=== PATIENT | male | born 1950 ===

== ENCOUNTER 2019-08-06 11:37 | Inpatient (IN) | payer OTHER ==
[2019-08-06] MEDS ORDERED: ASPIRIN 81 MG TAB CHEW PO ONE (12:13)
[2019-08-06] MEDS ORDERED: dilTIAZem 25 MG/5 ML INJ IV ONE (12:21)
--- NOTE | 2019-08-06 12:39 | XRay Report ---
CHEST 1 VIEW INDICATION: Chest Pain. COMPARISON: None. FINDINGS: Support devices: None. Heart: Normal. Lungs/Pleura: Blunting of the left costophrenic angle is suggestive of small left pleural effusion. P leural thickening could have this appearance. There are mild residual atelectatic changes in the base s. IMPRESSION: 1. Pleural thickening versus small left pleural effusion. Mild atelectatic changes in the bases. Signer Name: Hai Pool MD Signed: 08/06/2019 12:34 PM Workstation Name: [id number]
[2019-08-06] MEDS: dilTIAZem/D5W 100 MG/100 ML BAG IV SCH (12:40)
[2019-08-06 12:45] LABS: Basophils # (Auto) 0.2 K/mm3 (0.0-0.1); Basophils % (Auto) 2.4 % (0.0-1.8); Eosinophils % (Auto) 0.4 % (0.0-4.3); Hematocrit 39.6 % (35.5-45.6); Hemoglobin 13.5 gm/dl (11.8-15.2); Lymphocytes # (Auto) 0.7 K/mm3 (1.2-5.4); Lymphocytes % (Auto) 10.1 % (13.4-35.0); Mean Corpuscular HGB Conc 34 % (32-34); Mean Corpuscular Volume 92 fl (84-94); Monocytes # (Auto) 0.4 K/mm3 (0.0-0.8); Monocytes % (Auto) 6.5 % (0.0-7.3); Platelet Count 172 K/mm3 (140-440); Red Blood Count 4.32 M/mm3 (3.65-5.03); Red Cell Distribution Width 14.1 % (13.2-15.2)
[2019-08-06 12:57] LABS: INR 1.25 (0.87-1.13)
[2019-08-06 13:00] LABS: Alanine Aminotransferase 65 units/L (7-56); Albumin 3.8 g/dL (3.9-5); BUN/Creatinine Ratio 18; Bilirubin,Direct 0.4 mg/dL (0-0.2); Blood Urea Nitrogen 16 mg/dL (9-20); Calcium 9.1 mg/dL (8.4-10.2); Hemolysis Index 8
[2019-08-06 13:07] LABS: Free T4 (Free Thyroxine) 1.71 ng/dL (0.76-1.46)
--- NOTE | 2019-08-06 13:22 | Emergency Department Report ---
ED Chest Pain HPI - General Chief Complaint: Chest Pain Stated Complaint: CHEST PAIN Time Seen by Provider: 08/06/19 12:13 Source: patient Mode of arrival: Ambulatory Limitations: No Limitations - History of Present Illness Initial Comments: 69-year-old male Macedonian-speaking who tells me that he has had an irregular heart rhythm for about 10 days. He states that he has been short of breath both at night and on exertion. He has not been coughing much. He states he has had some discomfort in his anterior chest which is nonpleuritic and nonradiating intermittently over the last week. He is not complain of chest pain right now. He is not short of breath at rest now. He is not nauseated. He has not been sweating. He denies fever or chills. Patient states that he does not like to go to the doctor much and probably it is been 20 years since he seen a physician. MD Complaint: chest pain, other (Irregular heart rhythm) -: week(s) Onset: during rest Pain Location: substernal Pain Radiation: none Severity: mild Quality: dull Consistency: intermittent, now resolved Improves With: nothing Worsens With: nothing re: denies: nausea, vomting, diaphoresis Other Symptoms: denies: cough, fever, syncope Treatments Prior to Arrival: none Aspirin use within the Past 7 Days: (0) No - Related Data Allergies Allergy/AdvReac Type Severity Reaction Status Date / Time No Known Allergies Allergy Unverified 08/06/19 11:39 Heart Score - HEART Score History: Slightly suspicious EKG: Non-specific Age: > 65 Risk factors: > 3 risk factors or hx of atherosclerotic disease Troponin: < normal limit HEART Score: 5 - Critical Actions Critical Actions: 4-6 pts:12-16.6% risk of adverse cardiac event. Should be admitted ED Review of Systems ROS: Stated complaint: CHEST PAIN Other details as noted in HPI Constitutional: denies: chills, fever Eyes: denies: eye pain, eye discharge, vision change ENT: denies: ear pain, throat pain Respiratory: shortness of breath. denies: cough, wheezing Cardiovascular: chest pain. denies: palpitations Endocrine: no symptoms reported Gastrointestinal: denies: abdominal pain, nausea, diarrhea Genitourinary: denies: urgency, dysuria Musculoskeletal: denies: back pain, joint swelling, arthralgia Skin: denies: rash, lesions Neurological: denies: headache, weakness, paresthesias Psychiatric: denies: anxiety, depression Hematological/Lymphatic: denies: easy bleeding, easy bruising ED Past Medical Hx - Past Medical History Previous Medical History?: No - Surgical History Past Surgical History?: No - Social History Smoking Status: Current Every Day Smoker ED Physical Exam - General Limitations: No Limitations General appearance: alert, in no apparent distress - Head Head exam: Present: atraumatic, normocephalic - Eye Eye exam: Present: normal appearance. Absent: scleral icterus - ENT ENT exam: Present: mucous membranes moist - Neck Neck exam: Present: normal inspection - Respiratory Respiratory exam: Present: normal lung sounds bilaterally. Absent: respiratory distress - Cardiovascular Cardiovascular Exam: Present: normal rhythm, tachycardia. Absent: systolic murmur, diastolic murmur, rubs, gallop - GI/Abdominal GI/Abdominal exam: Present: soft, normal bowel sounds. Absent: distended, tenderness, guarding - Rectal Rectal exam: Present: deferred - Extremities Exam Extremities exam: Present: normal inspection, full ROM, normal capillary refill. Absent: tenderness, pedal edema, joint swelling, calf tenderness - Back Exam Back exam: Present: normal inspection - Neurological Exam Neurological exam: Present: alert, oriented X3, CN II-XII intact. Absent: motor sensory deficit - Psychiatric Psychiatric exam: Present: normal affect, normal mood - Skin Skin exam: Present: warm, dry, intact, normal color. Absent: rash ED Course Vital Signs 08/06/19 08/06/19 08/06/19 11:40 11:42 12:29 Temperature 97.6 F 97.6 F Pulse Rate 107 H 154 H 144 H Respiratory 18 18 18 Rate Blood Pressure 100/63 Blood Pressure 100/63 [Left] O2 Sat by Pulse 100 95 97 Oximetry 08/06/19 08/06/19 08/06/19 12:30 12:38 12:40 Temperature Pulse Rate 158 H 158 H 117 H Respiratory 25 H Rate Blood Pressure 134/80 138/80 134/80 Blood Pressure [Left] O2 Sat by Pulse 97 Oximetry 08/06/19 12:45 Temperature Pulse Rate 107 H Respiratory 24 Rate Blood Pressure 118/77 Blood Pressure [Left] O2 Sat by Pulse 96 Oximetry - Reevaluation(s) Reevaluation #1: Cardizem bolus and drip. Discussed with hospitalist. Chest x-ray showed no acute process. Patient will be hospitalized. 08/06/19 14:47 Reevaluation #2: Free T4 was slightly elevated. Further work-up per hospitalist. TSH is yet pending. 08/06/19 14:49 AIYANA score - Aiyana Score Age > 65: (0) No Aspirin use within the Past 7 Days: (0) No 3 or more CAD Risk Factors: (1) Yes 2 or more Angina events in past 24 hrs: (0) No Known CAD with more than 50% Stenosis: (0) No Elevated Cardiac Markers: (0) No ST Deviation Greater than 0.5mm: (0) No AIYANA Score: 1 ED Medical Decision Making - Lab Data Result diagrams: 08/06/19 12:33 08/06/19 12:33 Laboratory Results - last 24 hr 08/06/19 08/06/19 08/06/19 12:33 12:33 12:33 WBC 6.8 RBC 4.32 Hgb 13.5 Hct 39.6 MCV 92 MCH 31 MCHC 34 RDW 14.1 Plt Count 172 Lymph % (Auto) 10.1 L [place] % (Auto) 6.5 Eos % (Auto) 0.4 Baso % (Auto) 2.4 H Lymph # 0.7 L [place] # 0.4 Eos # 0.0 Baso # 0.2 H Seg Neutrophils % 80.6 H Seg Neutrophils # 5.5 PT 15.9 H INR 1.25 H APTT 32.0 Sodium Potassium Chloride Carbon Dioxide Anion Gap BUN Creatinine Estimated GFR BUN/Creatinine Ratio Glucose Calcium Magnesium Total Bilirubin Direct Bilirubin Indirect Bilirubin AST ALT Alkaline Phosphatase Troponin T < 0.010 NT-Pro-B Natriuret Pep Total Protein Albumin Albumin/Globulin Ratio TSH Free T4 08/06/19 08/06/19 12:33 12:33 WBC RBC Hgb Hct MCV MCH MCHC RDW Plt Count Lymph % (Auto) [place] % (Auto) Eos % (Auto) Baso % (Auto) Lymph # [place] # Eos # Baso # Seg Neutrophils % Seg Neutrophils # PT INR APTT Sodium 137 Potassium 4.1 Chloride 100.4 Carbon Dioxide 20 L Anion Gap 21 BUN 16 Creatinine 0.9 Estimated GFR > 60 BUN/Creatinine Ratio 18 Glucose 108 H Calcium 9.1 Magnesium 2.10 Total Bilirubin 1.00 Direct Bilirubin 0.4 H Indirect Bilirubin 0.6 AST 40 ALT 65 H Alkaline Phosphatase 56 Troponin T NT-Pro-B Natriuret Pep 3420 H Total Protein 6.9 Albumin 3.8 L Albumin/Globulin Ratio 1.2 TSH 2.980 Free T4 1.71 H - EKG Data -: EKG Interpreted by Me Rate: tachycardia - EKG Data Interpretation: other (Atrial fibrillation with rapid ventricular response. Nonspecific ST-T wave changes. No evidence of acute ischemia) - Radiology Data Radiology results: report reviewed (Chronic changes. Question left pleural fluid), image reviewed Critical care attestation.: If time is entered above; I have spent that time in minutes in the direct care of this critically ill patient, excluding procedure time. ED Disposition Clinical Impression: Atrial fibrillation with RVR Chest pain Qualifiers: Chest pain type: unspecified Qualified Code(s): R07.9 - Chest pain, unspecified Disposition: -09 OP ADMIT IP TO THIS HOSP Is pt being admited?: Yes Does the pt Need Aspirin: Yes Condition: Stable Instructions: Chest Pain (ED) Time of Disposition: 14:50
--- NOTE | 2019-08-06 14:26 | History and Physical Report ---
History of Present Illness Chief complaint: My heart is beating fast History of present illness: 69-year-old male with nicotine dependence presents to the ED for evaluation. Patient states that he has experienced "fast heartbeat" over the past 10 days with worsening symptoms over the past 2 days. Patient acknowledges decreased exercise tolerance, dyspnea with exertion, shortness of breath. Patient states that the symptoms were initially intermittent but have become increasingly frequent over the past 2 days. Patient also acknowledges discomfort in his chest which follows the episodes of fast heartbeat. Patient transported to [facility] via private vehicle. Patient seen and evaluated in the emergency department. Lab and imaging studies reviewed. Patient underwent EKG and was found to have atrial fibrillation with rapid ventricular response as well as symptoms and clinical findings consistent with CHF decompensation. Patient placed on Cardizem drip and admitted to [facility] for medical stabilization due to high risk for cardiac decompensation. Cardiology consult placed in ED. Patient denies fever, chills, chest pain, productive cough, skin rash, recent ill contacts, unilateral leg swelling, prolonged travel/immobility, individual/family history of DVT/PE/bleeding/blood clotting disorders, unintentional weight loss, night sweats. Advanced care planning conducted in ED. Patient counseled regarding n oncompliance with outpatient physician follow-up. Patient knowledges understanding risks of lack of medical follow-up. No prior admission for review. No medication listed at time of admission for reconciliation. Past History Past Medical History: No medical history, other (Reviewed) Past Surgical History: No surgical history, Other (Reviewed) Social history: single, smoking Family history: hypertension Medications and Allergies Allergies Allergy/AdvReac Type Severity Reaction Status Date / Time No Known Allergies Allergy Unverified 08/06/19 11:39 Active Meds: Active Medications Diltiazem HCl (Cardizem/D5w 100mg/100ml) 100 mg in 100 mls @ 5 mls/hr IV TITR RIMA; Protocol Last Titration: 08/06/19 12:57 Dose: 10 mg/hr, 10 mls/hr Documented by: Review of Systems Constitutional: no weight loss, no weight gain, no fever, no chills Ears, nose, mouth and throat: no ear pain, no ear discharge, no tinnitis, no decreased hearing, no nose pain Cardiovascular: palpitations, rapid/irregular heart beat, edema, shortness of breath, dyspnea on exertion, decreased exercise tolerance, no chest pain, no syncope Respiratory: no cough, no cough with sputum, no excessive sputum, no hemoptysis Gastrointestinal: no abdominal pain, no nausea, no vomiting, no diarrhea, no constipation Genitourinary Male: no hematuria, no flank pain, no discharge, no urinary frequency, no urinary hesitancy Rectal: no pain, no incontinence, no bleeding Musculoskeletal: no neck stiffness, no neck pain, no shooting arm pain, no arm numbness/tingling, no low back pain Integumentary: no rash, no pruritis, no redness, no sores, no wounds Neurological: no head injury, no transient paralysis, no paralysis, no weakness, no numbness, no tingling, no syncope, no tremors Psychiatric: no anxiety, no memory loss, no change in sleep habits, no insomnia, no hypersomnia, no change in appetite, no change in libido, no suicidal ideation Endocrine: no cold intolerance, no heat intolerance, no polyphagia, no polydi psia, no polyuria, no excessive sweating, no flushing, no weight change Hematologic/Lymphatic: no easy bruising, no easy bleeding, no lymphadenopathy, no lymphedema Allergic/Immunologic: no urticaria, no allergic rhinitis, no wheezing, no anaphylaxis, no angioedema Exam - Constitutional Vitals: Temp Pulse Resp BP Pulse Ox 97.6 F 107 H 24 118/77 96 08/06/19 11:42 08/06/19 12:45 08/06/19 12:45 08/06/19 12:45 08/06/19 12:45 General appearance: Present: mild distress - EENT Eyes: Present: PERRL ENT: hearing intact, clear oral mucosa - Neck Neck: Present: supple, normal ROM - Respiratory Respiratory effort: normal Respiratory: bilateral: CTA - Cardiovascular Rhythm: other (Tachycardia) Heart Sounds: Present: S1 & S2. Absent: rub, click - Extremities Extremities: pulses symmetrical Extremity abnormal: edema Peripheral Pulses: within normal limits - Abdominal General gastrointestinal: Present: soft, non-tender, non-distended, normal bowel sounds Male genitourinary: Present: normal - Integumentary Integumentary: Present: clear, warm, dry - Musculoskeletal Musculoskeletal: gait normal, strength equal bilaterally - Psychiatric Psychiatric: appropriate mood/affect, intact judgment & insight - Neurologic Neurologic: CNII-XII intact, moves all extremities Results - Labs CBC & Chem 7: 08/06/19 12:33 08/06/19 12:33 Labs: Abnormal lab results 08/06/19 08/06/19 08/06/19 Range/Units 12:33 12:33 12:33 Lymph % (Auto) 10.1 L (13.4-35.0) % Baso % (Auto) 2.4 H (0.0-1.8) % Lymph # 0.7 L (1.2-5.4) K/mm3 Baso # 0.2 H (0.0-0.1) K/mm3 Seg Neutrophils % 80.6 H (40.0-70.0) % PT 15.9 H (12.2-14.9) Sec. INR 1.25 H (0.87-1.13) Carbon Dioxide 20 L (22-30) mmol/L Glucose 108 H (75-100) mg/dL Direct Bilirubin 0.4 H (0-0.2) mg/dL ALT 65 H (7-56) units/L NT-Pro-B Natriuret Pep 3420 H (0-900) pg/mL Albumin 3.8 L (3.9-5) g/dL Free T4 (0.76-1.46) ng/dL 08/06/19 Range/Units 12:33 Lymph % (Auto) (13.4-35.0) % Baso % (Auto) (0.0-1.8) % Lymph # (1.2-5.4) K/mm3 Baso # (0.0-0.1) K/mm3 Seg Neutrophils % (40.0-70.0) % PT (12.2-14.9) Sec. INR (0.87-1.13) Carbon Dioxide (22-30) mmol/L Glucose (75-100) mg/dL Direct Bilirubin (0-0.2) mg/dL ALT (7-56) units/L NT-Pro-B Natriuret Pep (0-900) pg/mL Albumin (3.9-5) g/dL Free T4 1.71 H (0.76-1.46) ng/dL Assessment and Plan - Patient Problems (1) CHF (congestive heart failure) Current Visit: Yes Status: Acute Qualifiers: Heart failure type: systolic Heart failure chronicity: acute Qualified Code(s): I50.21 - Acute systolic (congestive) heart failure Plan to address problem: Strict I's/O, daily weight, afterload reduction, monitor urine output every shift, supplemental oxygen, echo, thyroid panel, magnesium level, blood pressure control, cardiology consult placed in ED. (2) Nicotine dependence Current Visit: Yes Status: Acute Qualifiers: Nicotine product type: cigarettes Substance use status: in withdrawal Qualified Code(s): F17.213 - Nicotine dependence, cigarettes, with withdrawal Plan to address problem: Smoking cessation counseling, supportive care, behavior change counseling +15 minutes. (3) Noncompliance Current Visit: Yes Status: Acute Plan to address problem: Patient counseled regarding noncompliance and lack of outpatient medical follow- up. Patient informed of increased risk of worsening symptoms and possible . Patient knowledges understanding instructions and will be compliant with outpatient follow-up. (4) Atrial fibrillation with RVR Current Visit: Yes Status: Acute Plan to address problem: Cardizem drip initiated in ED, patient admitted to IMCU, remote telemetry monitoring, transition to p.o. Cardizem as clinically indicated, titrate Cardizem drip drip to heart rate less than 100 bpm, echo, cardiology team consulted in ED. (5) DVT prophylaxis Current Visit: Yes Status: Acute Plan to address problem: SCD to bilateral lower extremities while in bed, patient is ambulatory.
[2019-08-06] MEDS ORDERED: ALBUTEROL 2.5 MG/3 ML NEBU IH PRN (14:37)
[2019-08-06] MEDS ORDERED: ONDANSETRON 4 MG/2 ML INJ IV PRN (14:37)
[2019-08-06] MEDS ORDERED: ACETAMINOPHEN 325 MG TAB PO PRN (14:37)
[2019-08-07] MEDS: dilTIAZem/D5W 100 MG/100 ML BAG IV SCH (10:10)
--- NOTE | 2019-08-07 13:07 | Progress Note ---
Assessment and Plan Assessment and plan: 69-year-old man who presents to the hospital with palpitations. A. fib with RVR and hypercoagulable states Rate control medications, stroke ppx per cardiology Tobacco abuse/dependence Smoking cessation counseling performed for 10 minutes, nicotine patches when necessary Nonadherence Preventative health counseling performed for 17 minutes DVt ppx- lovenox History Interval history: Review of systems Constitutional: No fevers, no malaise, no joint pains CVS: No chest pain, no orthopnea, no dyspnea on exertion, no pedal edema GI: No abdominal pain, no diarrhea, no vomiting, no constipation Respiratory: no wheezing, no coughing Hospitalist Physical - Physical exam Narrative exam: General.: Appears well, no distress, nontoxic HEENT: Moist mucous membranes, extraocular muscles intact, no lymphadenopathy Neck: supple Cardiac: S1-S2 heard Lungs: clear to auscultation bilaterally Abdomen: soft , nontender, nondistended, bowel sounds positive Extremities: no edema clubbing or cyanosis Skin: no rash or lesions Neurologic: no gross focal deficits Psych: calm, and cooperative - Constitutional Vitals: Temp Pulse Resp BP Pulse Ox 98.1 F 131 H 18 113/80 94 08/07/19 08:00 08/07/19 12:01 08/07/19 12:01 08/07/19 12:01 08/07/19 12:01 General appearance: Present: mild distress AIYANA score - Aiyana Score Age > 65: (0) No Aspirin use within the Past 7 Days: (0) No 3 or more CAD Risk Factors: (1) Yes 2 or more Angina events in past 24 hrs: (0) No Known CAD with more than 50% Stenosis: (0) No Elevated Cardiac Markers: (0) No ST Deviation Greater than 0.5mm: (0) No AIYANA Score: 1 Results - Labs CBC & Chem 7: 08/06/19 12:33 08/06/19 12:33 Labs: Laboratory Last Values WBC 6.8 K/mm3 (4.5-11.0) 08/06/19 12:33 RBC 4.32 M/mm3 (3.65-5.03) 08/06/19 12:33 Hgb 13.5 gm/dl (11.8-15.2) 08/06/19 12:33 Hct 39.6 % (35.5-45.6) 08/06/19 12:33 MCV 92 fl (84-94) 08/06/19 12:33 MCH 31 pg (28-32) 08/06/19 12:33 MCHC 34 % (32-34) 08/06/19 12:33 RDW 14.1 % (13.2-15.2) 08/06/19 12:33 Plt Count 172 K/mm3 (140-440) 08/06/19 12:33 Lymph % (Auto) 10.1 % (13.4-35.0) L 08/06/19 12:33 [place] % (Auto) 6.5 % (0.0-7.3) 08/06/19 12:33 Eos % (Auto) 0.4 % (0.0-4.3) 08/06/19 12:33 Baso % (Auto) 2.4 % (0.0-1.8) H 08/06/19 12:33 Lymph # 0.7 K/mm3 (1.2-5.4) L 08/06/19 12:33 [place] # 0.4 K/mm3 (0.0-0.8) 08/06/19 12:33 Eos # 0.0 K/mm3 (0.0-0.4) 08/06/19 12:33 Baso # 0.2 K/mm3 (0.0-0.1) H 08/06/19 12:33 Seg Neutrophils % 80.6 % (40.0-70.0) H 08/06/19 12:33 Seg Neutrophils # 5.5 K/mm3 (1.8-7.7) 08/06/19 12:33 PT 15.9 Sec. (12.2-14.9) H 08/06/19 12:33 INR 1.25 (0.87-1.13) H 08/06/19 12:33 APTT 32.0 Sec. (24.2-36.6) 08/06/19 12:33 Sodium 137 mmol/L (137-145) 08/06/19 12:33 Potassium 4.1 mmol/L (3.6-5.0) 08/06/19 12:33 Chloride 100.4 mmol/L (98-107) 08/06/19 12:33 Carbon Dioxide 20 mmol/L (22-30) L 08/06/19 12:33 Anion Gap 21 mmol/L 08/06/19 12:33 BUN 16 mg/dL (9-20) 08/06/19 12:33 Creatinine 0.9 mg/dL (0.8-1.5) 08/06/19 12:33 Estimated GFR > 60 ml/min 08/06/19 12:33 BUN/Creatinine Ratio 18 % 08/06/19 12:33 Glucose 108 mg/dL (75-100) H 08/06/19 12:33 Calcium 9.1 mg/dL (8.4-10.2) 08/06/19 12:33 Magnesium 2.10 mg/dL (1.7-2.3) 08/06/19 14:56 Total Bilirubin 1.00 mg/dL (0.1-1.2) 08/06/19 12:33 Direct Bilirubin 0.4 mg/dL (0-0.2) H 08/06/19 12:33 Indirect Bilirubin 0.6 mg/dL 08/06/19 12:33 AST 40 units/L (5-40) 08/06/19 12:33 ALT 65 units/L (7-56) H 08/06/19 12:33 Alkaline Phosphatase 56 units/L (35-129) 08/06/19 12:33 Troponin T < 0.010 ng/mL (0.00-0.029) 08/06/19 12:52 NT-Pro-B Natriuret Pep 3420 pg/mL (0-900) H 08/06/19 12:33 Total Protein 6.9 g/dL (6.3-8.2) 08/06/19 12:33 Albumin 3.8 g/dL (3.9-5) L 08/06/19 12:33 Albumin/Globulin Ratio 1.2 % 08/06/19 12:33 TSH 2.980 mlU/mL (0.270-4.200) 08/06/19 12:33 Free T4 1.71 ng/dL (0.76-1.46) H 08/06/19 12:33 Active Medications - Current Medications Current Medications: Generic Name Dose Route Start Last Admin Trade Name Freq PRN Reason Stop Dose Admin Acetaminophen 650 mg 08/06/19 14:37 Tylenol PO Q4H PRN Pain MILD(1-3)/Fever >100.5/SALGADO Albuterol 2.5 mg 08/06/19 14:37 Proventil IH Q4HRT PRN Shortness Of Breath Enoxaparin Sodium 40 mg 08/07/19 22:00 Enoxaparin SUB-Q QDAY@2200 RIMA Diltiazem HCl 100 mg in 100 mls @ 5 mls/hr 08/06/19 13:00 08/07/19 10:10 Cardizem/D5w 100mg/100ml IV 5 mg/hr TITR RIMA 5 mls/hr Administration Protocol 5 MG/HR Metoprolol Tartrate 50 mg 08/07/19 14:00 Metoprolol PO BID [facility] Ondansetron HCl 4 mg 08/06/19 14:37 Zofran IV Q8H PRN Nausea And Vomiting Sodium Chloride 10 ml 08/06/19 22:00 08/07/19 00:00 Sodium Chloride Flush Syringe 10 Ml IV 10 ml BID RIMA Administration Sodium Chloride 10 ml 08/06/19 14:37 Sodium Chloride Flush Syringe 10 Ml IV PRN PRN LINE FLUSH
[2019-08-07] MEDS: METOPROLOL TARTRATE 50 MG TAB PO SCH ×2 (13:53→21:47)
--- NOTE | 2019-08-07 17:00 | Consultation ---
History of Present Illness Consult date: 08/07/19 Consult reason: atrial fibrillation, chest pain History of present illness: Consulted because of atrial fibrillation with rapid VR. Patient from [facility],can't speak [place]raini.Hx. obtained from chart. Past History Past Medical History: No medical history, other (Reviewed) Past Surgical History: No surgical history, Other (Reviewed) Social history: single, smoking, other (Patient from [facility], in [facility].) Family history: hypertension Medications and Allergies Allergies Allergy/AdvReac Type Severity Reaction Status Date / Time No Known Allergies Allergy Unverified 08/06/19 11:39 Home Medications Medication Instructions Recorded Confirmed Last Taken Type No Known Home Medications [No 08/07/19 08/07/19 Unknown History Reported Home Medications] Active Meds: Active Medications Acetaminophen (Tylenol) 650 mg PO Q4H PRN PRN Reason: Pain MILD(1-3)/Fever >100.5/[place] Albuterol (Proventil) 2.5 mg IH Q4HRT PRN PRN Reason: Shortness Of Breath Enoxaparin Sodium (Enoxaparin) 40 mg SUB-Q QDAY@2200 [facility] Diltiazem HCl (Cardizem/D5w 100mg/100ml) 100 mg in 100 mls @ 5 mls/hr IV TITR [facility]; Protocol Last Admin: 08/07/19 10:10 Dose: 5 mg/hr, 5 mls/hr Documented by: Metoprolol Tartrate (Metoprolol) 50 mg PO BID [facility] Last Admin: 08/07/19 13:53 Dose: 50 mg Documented by: Ondansetron HCl (Zofran) 4 mg IV Q8H PRN PRN Reason: Nausea And Vomiting Sodium Chloride (Sodium Chloride Flush Syringe 10 Ml) 10 ml IV BID [facility] Last Admin: 08/07/19 15:53 Dose: Not Given Documented by: Sodium Chloride (Sodium Chloride Flush Syringe 10 Ml) 10 ml IV PRN PRN PRN Reason: LINE FLUSH Review of Systems Constitutional: no weight loss Ears, nose, mouth and throat: no ear discharge Cardiovascular: chest pain, palpitations, shortness of breath, dyspnea on exertion Respiratory: no cough Gastrointestinal: no vomiting Genitourinary Male: no hematuria Musculoskeletal: no neck stiffness Integumentary: no rash Psychiatric: no anxiety Hematologic/Lymphatic: no easy bruising Allergic/Immunologic: no wheezing Physical Examination Vital Signs Temp Pulse Resp BP Pulse Ox 97.6 F 107 H 18 100/63 100 08/06/19 11:40 08/06/19 11:40 08/06/19 11:40 08/06/19 11:40 08/06/19 11:40 General appearance: no acute distress HEENT: Positive: PERRL Neck: Positive: trachea midline Cardiac: Positive: irregularly irregular. Negative: Audible Murmur Lungs: Positive: clear to auscultation Neuro: Positive: Grossly Intact Abdomen: Positive: Unremarkable, Soft Male genitourinary: Positive: deferred Skin: Negative: Rash Extremities: Absent: edema Results 08/06/19 12:33 08/06/19 12:33 EKG interpretations - Telemetry EKG Rhythm: Atrial Fibrillation AV and intraventricular conduction: left anterior fascicular (122/mt.(EKG done at 08/07/2019 09:10)) Assessment and Plan New onset atrial fibrillation with rapid VR and exertional SOB of few weeks,"little" chest pain.Was in ICU,transferred to telemetry,patient's VR undere cotrol on 10 mf Diltiazem,started on Metoprolol 50 mg .BID,considering his age and atrial fibrillation,will start anticoagulation with Warfarin,will check echo.will get more hx.(patient can't speak Bahraini). Continue to monitor in telemetry. - Patient Problems (1) Atrial fibrillation with RVR Current Visit: Yes Status: Acute (2) Chest pain Current Visit: Yes Status: Acute Qualifiers: Chest pain type: unspecified Qualified Code(s): R07.9 - Chest pain, unspecified
[2019-08-07] MEDS ORDERED: WARFARIN NO DOSE TODAY PO ONE (17:08)
[2019-08-07] MEDS: WARFARIN 5 MG TAB PO SCH (17:34)
[2019-08-07] MEDS: ENOXAPARIN 40 MG/0.4 ML INJ SUB-Q SCH (21:47)
[2019-08-08] MEDS: dilTIAZem/D5W 100 MG/100 ML BAG IV SCH (01:32)
[2019-08-08 07:21] LABS: INR 1.24 (0.87-1.13)
[2019-08-08] MEDS: METOPROLOL TARTRATE 50 MG TAB PO SCH ×2 (10:11→21:42)
--- NOTE | 2019-08-08 13:22 | Progress Note ---
Assessment and Plan New onset atrial fibrillation with rapid VR and exertional SOB of few weeks,"little" chest pain.Was in ICU,transferred to telemetry,patient's VR undere cotrol on 10 mf Diltiazem,started on Metoprolol 50 mg .BID,considering his age and atrial fibrillation,will start anticoagulation with Warfarin,will check echo.will get more hx.(patient can't speak Serbian). 08/08/2019>Patient vr is better controlled ,denies any chest pain and minimal SOB,considering underlying cardiomyopathy will get pharmacologic MPI.Difficult to comminicate with patient. - Patient Problems (1) Atrial fibrillation with RVR Current Visit: Yes Status: Acute (2) Chest pain Current Visit: Yes Status: Acute Qualifiers: Chest pain type: unspecified Qualified Code(s): R07.9 - Chest pain, unspecified (3) Cardiomyopathy Current Visit: Yes Status: Acute Subjective Date of service: 08/08/19 Interval history: Patient is ambulating,telemetry showing atrial fibrillation with controlled VR,echo showed LV systolic dysfunction.Denies any chest pain,has minimal shortness of breath. Objective Vital Signs Temp Pulse Pulse Resp BP BP Pulse Ox 08/08/19 12:33 98.2 F 89 18 110/75 96 08/08/19 11:46 18 08/08/19 10:11 94 H 112/81 08/08/19 08:27 100 08/08/19 07:38 98.3 F 94 H 16 112/81 97 08/08/19 04:23 98.6 F 68 18 105/68 95 08/07/19 23:56 97.6 F 51 L 18 73/51 95 08/07/19 22:00 123 H 18 08/07/19 21:47 71 97/62 08/07/19 21:21 98 08/07/19 20:08 98.1 F 71 20 97/62 97 08/07/19 20:00 97.6 F 50 L 18 84/55 95 08/07/19 17:21 94 H 08/07/19 16:36 97.6 F 69 18 93/67 96 08/07/19 15:11 83 20 99/62 96 08/07/19 15:01 98 H 15 99/62 99 08/07/19 14:45 113 H 22 109/77 94 08/07/19 14:30 125 H 16 114/84 93 08/07/19 14:15 127 H 29 H 114/70 94 08/07/19 14:00 122 H 123 H 14 114/70 93 08/07/19 13:53 104 H 123/87 08/07/19 13:45 154 H 15 102/78 92 08/07/19 13:30 160 H 21 102/78 96 - Physical Examination HEENT: Positive: PERRL Neck: Positive: trachea midline Cardiac: Positive: irregularly irregular. Negative: Audible Murmur Lungs: Positive: Normal Breath Sounds Neuro: Positive: Grossly Intact Abdomen: Positive: Unremarkable, Soft Skin: Negative: Rash Extremities: Absent: edema - Labs and Meds Coagulation 08/08/19 Range/Units 06:29 PT 15.8 H (12.2-14.9) Sec. INR 1.24 H (0.87-1.13) - EKG Supraventricular dysrhythmia: atrial fibrillation (with controlled VR.) AV and intraventricular conduction: left anterior fascicular (122/mt.(EKG done at 08/07/2019 09:10))
--- NOTE | 2019-08-08 14:54 | Event Note ---
Date: 08/08/19 Asked to see initially for A-frib [facility] RVR but rate controlled and transferred to medical floor. Will see prn
--- NOTE | 2019-08-08 14:56 | Progress Note ---
Assessment and Plan Assessment and plan: 69-year-old man who presents to the hospital with palpitations. A. fib with RVR and hypercoagulable states Rate control medications, stroke ppx per cardiology Tobacco abuse/dependence Smoking cessation counseling performed for 10 minutes, nicotine patches when necessary Nonadherence Preventative health counseling performed for 17 minutes DVt ppx- lovenox History Interval history: Review of systems Constitutional: No fevers, no malaise, no joint pains CVS: No chest pain, no orthopnea, no dyspnea on exertion, no pedal edema GI: No abdominal pain, no diarrhea, no vomiting, no constipation Respiratory: no wheezing, no coughing Hospitalist Physical - Physical exam Narrative exam: General.: Appears well, no distress, nontoxic HEENT: Moist mucous membranes, extraocular muscles intact, no lymphadenopathy Neck: supple Cardiac: S1-S2 heard Lungs: clear to auscultation bilaterally Abdomen: soft , nontender, nondistended, bowel sounds positive Extremities: no edema clubbing or cyanosis Skin: no rash or lesions Neurologic: no gross focal deficits Psych: calm, and cooperative - Constitutional Vitals: Temp Pulse Resp BP Pulse Ox 98.2 F 89 18 110/75 96 08/08/19 12:33 08/08/19 12:33 08/08/19 12:33 08/08/19 12:33 08/08/19 12:33 General appearance: Present: no acute distress AIYANA score - Aiyana Score Age > 65: (0) No Aspirin use within the Past 7 Days: (0) No 3 or more CAD Risk Factors: (1) Yes 2 or more Angina events in past 24 hrs: (0) No Known CAD with more than 50% Stenosis: (0) No Elevated Cardiac Markers: (0) No ST Deviation Greater than 0.5mm: (0) No AIYANA Score: 1 Results - Labs CBC & Chem 7: 08/06/19 12:33 08/06/19 12:33 Labs: Laboratory Last Values WBC 6.8 K/mm3 (4.5-11.0) 08/06/19 12:33 RBC 4.32 M/mm3 (3.65-5.03) 08/06/19 12:33 Hgb 13.5 gm/dl (11.8-15.2) 08/06/19 12:33 Hct 39.6 % (35.5-45.6) 08/06/19 12:33 MCV 92 fl (84-94) 08/06/19 12:33 MCH 31 pg (28-32) 08/06/19 12:33 MCHC 34 % (32-34) 08/06/19 12:33 RDW 14.1 % (13.2-15.2) 08/06/19 12:33 Plt Count 172 K/mm3 (140-440) 08/06/19 12:33 Lymph % (Auto) 10.1 % (13.4-35.0) L 08/06/19 12:33 Pacific % (Auto) 6.5 % (0.0-7.3) 08/06/19 12:33 Eos % (Auto) 0.4 % (0.0-4.3) 08/06/19 12:33 Baso % (Auto) 2.4 % (0.0-1.8) H 08/06/19 12:33 Lymph # 0.7 K/mm3 (1.2-5.4) L 08/06/19 12:33 Pacific # 0.4 K/mm3 (0.0-0.8) 08/06/19 12:33 Eos # 0.0 K/mm3 (0.0-0.4) 08/06/19 12:33 Baso # 0.2 K/mm3 (0.0-0.1) H 08/06/19 12:33 Seg Neutrophils % 80.6 % (40.0-70.0) H 08/06/19 12:33 Seg Neutrophils # 5.5 K/mm3 (1.8-7.7) 08/06/19 12:33 PT 15.8 Sec. (12.2-14.9) H 08/08/19 06:29 INR 1.24 (0.87-1.13) H 08/08/19 06:29 APTT 32.0 Sec. (24.2-36.6) 08/06/19 12:33 Sodium 137 mmol/L (137-145) 08/06/19 12:33 Potassium 4.1 mmol/L (3.6-5.0) 08/06/19 12:33 Chloride 100.4 mmol/L (98-107) 08/06/19 12:33 Carbon Dioxide 20 mmol/L (22-30) L 08/06/19 12:33 Anion Gap 21 mmol/L 08/06/19 12:33 BUN 16 mg/dL (9-20) 08/06/19 12:33 Creatinine 0.9 mg/dL (0.8-1.5) 08/06/19 12:33 Estimated GFR > 60 ml/min 08/06/19 12:33 BUN/Creatinine Ratio 18 % 08/06/19 12:33 Glucose 108 mg/dL (75-100) H 08/06/19 12:33 Calcium 9.1 mg/dL (8.4-10.2) 08/06/19 12:33 Magnesium 2.10 mg/dL (1.7-2.3) 08/06/19 14:56 Total Bilirubin 1.00 mg/dL (0.1-1.2) 08/06/19 12:33 Direct Bilirubin 0.4 mg/dL (0-0.2) H 08/06/19 12:33 Indirect Bilirubin 0.6 mg/dL 08/06/19 12:33 AST 40 units/L (5-40) 08/06/19 12:33 ALT 65 units/L (7-56) H 08/06/19 12:33 Alkaline Phosphatase 56 units/L (35-129) 08/06/19 12:33 Troponin T < 0.010 ng/mL (0.00-0.029) 08/06/19 12:52 NT-Pro-B Natriuret Pep 3420 pg/mL (0-900) H 08/06/19 12:33 Total Protein 6.9 g/dL (6.3-8.2) 08/06/19 12:33 Albumin 3.8 g/dL (3.9-5) L 08/06/19 12:33 Albumin/Globulin Ratio 1.2 % 08/06/19 12:33 TSH 2.980 mlU/mL (0.270-4.200) 08/06/19 12:33 Free T4 1.71 ng/dL (0.76-1.46) H 08/06/19 12:33 Active Medications - Current Medications Current Medications: Generic Name Dose Route Start Last Admin Trade Name Freq PRN Reason Stop Dose Admin Acetaminophen 650 mg 08/06/19 14:37 Tylenol PO Q4H PRN Pain MILD(1-3)/Fever >100.5/SALGADO Albuterol 2.5 mg 08/06/19 14:37 Proventil IH Q4HRT PRN Shortness Of Breath Enoxaparin Sodium 40 mg 08/07/19 22:00 08/07/19 21:47 Enoxaparin SUB-Q 40 mg QDAY@2200 RIMA Administration Diltiazem HCl 100 mg in 100 mls @ 5 mls/hr 08/06/19 13:00 08/08/19 01:32 Cardizem/D5w 100mg/100ml IV 5 mg/hr TITR RIMA 5 mls/hr Administration Protocol 5 MG/HR Metoprolol Tartrate 50 mg 08/07/19 14:00 08/08/19 10:11 Metoprolol PO 50 mg BID RIMA Administration Ondansetron HCl 4 mg 08/06/19 14:37 08/08/19 01:34 Zofran IV 4 mg Q8H PRN Administration Nausea And Vomiting Sodium Chloride 10 ml 08/06/19 22:00 08/08/19 10:11 Sodium Chloride Flush Syringe 10 Ml IV 10 ml BID RIMA Administration Sodium Chloride 10 ml 08/06/19 14:37 Sodium Chloride Flush Syringe 10 Ml IV PRN PRN LINE FLUSH Warfarin Sodium 5 mg 08/07/19 18:00 08/07/19 17:34 Coumadin PO 5 mg DAILY@1700 [facility] Administration Protocol
[2019-08-08] MEDS: WARFARIN 5 MG TAB PO SCH (17:18)
[2019-08-08] MEDS: ENOXAPARIN 40 MG/0.4 ML INJ SUB-Q SCH (21:43)
[2019-08-09] MEDS ORDERED: REGADENOSON 0.4 MG/5 ML INJ IV ONE ×2 (06:52→06:57)
[2019-08-09] MEDS: METOPROLOL TARTRATE 50 MG TAB PO SCH ×2 (08:33→11:06)
[2019-08-09 08:43] LABS: INR 1.91 (0.87-1.13)
--- NOTE | 2019-08-09 13:19 | Progress Note ---
Assessment and Plan tte reviewed - EF 20-25%, LA mildly dilated, RV mod dilated, RV systolic function mod reduced, mild to mod AR, mod MR, mod TR, mild pulm HTN RVSP 42mmHg. S/p lexiscan MPI stress test this AM which was negative for ischemia, ungated d/t AFib. Tele reviewed - in AFib with HR currently 100s. Currently stable cardiac status. Cont present cardiac management, including lopressor, low dose lisinopril and coumadin with tx INR 2-3. Pt may discharge from cardiology standpoint. Recommend follow up in our office with Dr. Mcbride within 1-2 weeks ([phone]). The patient has been seen in conjunction with Dr. Kelton Fields who agrees with the assessment and plan of care. - Patient Problems (1) Atrial fibrillation with RVR Current Visit: Yes Status: Acute (2) Heart failure with reduced ejection fraction Current Visit: Yes Status: Acute (3) Nonischemic cardiomyopathy Current Visit: Yes Status: Chronic (4) Tobacco use Current Visit: Yes Status: Chronic Subjective Date of service: 08/09/19 Principal diagnosis: AFib RVR; CMP; HF Interval history: pt for stress test, no current complaints. in AFib with HR currently 100s. Objective Last Vital Signs Temp 98.0 F 08/09/19 08:29 Pulse 101 H 08/09/19 12:31 Resp 18 08/09/19 08:29 BP 112/91 08/09/19 12:31 Pulse Ox 92 08/09/19 12:31 - Physical Examination General: No Apparent Distress HEENT: Positive: PERRL Neck: Positive: trachea midline Cardiac: Positive: irregularly irregular, S1/S2 Lungs: Positive: Decreased Breath Sounds Neuro: Positive: Grossly Intact Abdomen: Positive: Unremarkable, Soft Skin: Negative: Rash Extremities: Absent: edema - Labs and Meds Coagulation 08/09/19 Range/Units 07:58 PT 22.2 H (12.2-14.9) Sec. INR 1.91 H (0.87-1.13) - Imaging and Cardiology EKG: report reviewed, image reviewed Echo: report reviewed - Telemetry EKG Rhythm: Atrial Fibrillation AV and intraventricular conduction: left anterior fascicular (122/mt.(EKG done at 08/07/2019 09:10))
--- NOTE | 2019-08-09 13:24 | Discharge Summary ---
Providers - Providers Date of Admission: 08/06/19 14:37 Attending physician: CANDE DEL VALLE MD 08/07/19 13:05 Consult to Physician [CONS] Routine Comment: Consulting Provider: CHASITY BUSTILLO Physician Instructions: Reason For Exam: afib 08/07/19 15:38 Consult to Physician [CONS] Routine Comment: Consulting Provider: CALLY WADE Physician Instructions: Reason For Exam: afib w rvr Primary care physician: [employer] Hospitalization Condition: Stable Hospital course: 69-year-old man who presents to the hospital with palpitations. A. fib with RVR and hypercoagulable states Patient was treated with diltiazem drip and then transitioned to oral medications. He was started on warfarin for stroke prophylaxis, he is to have repeat INR check within 3 days of discharge. Acute systolic CHF with EF of 25% Patient went on to have a stress test that was negative, most likely tachycardia induced CHF, meds optimized Tobacco abuse/dependence Smoking cessation counseling performed for 10 minutes, nicotine patches when necessary Nonadherence Preventative health counseling performed for 17 minutes DVt ppx- lovenox Disposition: - TO HOME OR SELFCARE Time spent for discharge: 33 mins Core Measure Documentation - Palliative Care Palliative Care/ Comfort Measures: Not Applicable - Core Measures Any of the following diagnoses?: heart failure - Heart Failure Discharge Requirements LAURA/ARB for LVSD if EF <40%: Yes Beta john paul at discharge: Yes Exam - Constitutional Vitals: Temp Pulse Resp BP Pulse Ox 98.0 F 101 H 18 112/91 92 08/09/19 08:29 08/09/19 12:31 08/09/19 08:29 08/09/19 12:31 08/09/19 12:31 General appearance: Present: no acute distress, well-nourished - EENT Eyes: Present: PERRL ENT: hearing intact, clear oral mucosa - Neck Neck: Present: supple, normal ROM - Respiratory Respiratory effort: normal Respiratory: bilateral: CTA - Cardiovascular Heart Sounds: Present: S1 & S2. Absent: rub, click - Extremities Extremities: pulses symmetrical, No edema Peripheral Pulses: within normal limits - Abdominal General gastrointestinal: Present: soft, non-tender, non-distended, normal bowel sounds Male genitourinary: Present: normal - Integumentary Integumentary: Present: clear, warm, dry - Musculoskeletal Musculoskeletal: gait normal, strength equal bilaterally - Psychiatric Psychiatric: appropriate mood/affect, intact judgment & insight - Neurologic Neurologic: CNII-XII intact, moves all extremities Plan Follow up with: ROCAEL BARROSO MD [Staff Physician] - 7 Days PRIMARY CARE, [Primary Care Provider] - 7 Days Forms: Warfarin Discharge Instruction Prescriptions: Warfarin [Coumadin] 2.5 mg PO DAILY@1700 #30 tablet Metoprolol [Lopressor TAB] 50 mg PO TID #90 tablet polyethylene glycoL 3350 [Miralax 3350] 17 gm PO QDAY PRN #30 packet PRN Reason: Constipation Sennosides/Docusate Sodium [Senna Plus 8.6-50 mg Tablet] 1 each PO HS PRN #30 tablet PRN Reason: Constipation Lisinopril [Zestril] 5 mg PO DAILY #90 tablet
[2019-08-09] MEDS ORDERED: METOPROLOL TARTRATE 50 MG TAB PO SCH (14:00)
--- NOTE | 2019-08-09 14:30 | Treadmill Report ---
NUCLEAR STRESS TEST REFERRING PHYSICIAN: Dr. Collins. PROTOCOL: The patient was assessed in a postabsorptive state, given 10 mCi of technetium 99m at rest. The patient underwent rest imaging via Lexiscan per standard protocol. At peak stress, the patient was given 26 mCi of technetium 99m. Shortly thereafter, the patient underwent stress imaging. Raw imaging reveals mild GI artifact, no significant motion artifact. SPECT images examined carefully in horizontal long axis, vertical long axis, short axis views, although inferior wall is partially obscured by GI artifact. It does not appear to be any convincing evidence of significant degree of ischemia or prior infarction. No significant reversible or fixed defect identified. No gating performed due to presence of atrial fibrillation. CONCLUSIONS: 1. No convincing evidence of significant degree of ischemia or prior infarction. 2. No gating due to atrial fibrillation. 3. Lexiscan reported separately. JOB# [id number] SBM/NTS
--- NOTE | 2019-08-09 15:05 | Consultation ---
History of Present Illness Consult date: 08/09/19 Reason for consult: dyspnea, other (Palpatations.) History of present illness: Pulmonary and Critical Care Consult Note Thank you Dr. Blake for asking us to participate in the care of this patient. 69-year-old male with nicotine dependence presents to the ED for evaluation. Patient states that he has experienced "fast heartbeat" over the past 10 days with worsening symptoms over the past 2 days. Patient acknowledges decreased exercise tolerance, dyspnea with exertion, shortness of breath. Patient states that the symptoms were initially intermittent but have become increasingly frequent over the past 2 days. Patient also acknowledges discomfort in his chest which follows the episodes of fast heartbeat. Patient underwent EKG and was found to have atrial fibrillation with rapid ventricular response as well as symptoms and clinical findings consistent with CHF decompensation. Patient placed on Cardizem drip and admitted to IM for medical stabilization due to high risk for cardiac decompensation. Patient denies fever, chills, chest pain, productive cough, skin rash, recent ill contacts, unilateral leg swelling, prol onged travel/immobility, individual/family history of DVT/PE/bleeding/blood clotting disorders, unintentional weight loss, night sweats. Patient counseled regarding noncompliance with outpatient physician follow-up. Pt is originally from [facility]. He denies any smoking history, alcohol, or drug use. 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 Currently, pt is alert and awake. No acute respiratory distress. He reports slight shortness of breath. He denies any chest pain or cough. He is resting on room air with an O2 saturation of 94%. Pt is not using his supplemental O2 via nasal cannula as recommended. He is afebrile and has no leukocytosis. CXR from 08/06/19 reported Pleural thickening versus small left pleural effusion. Mild atelectatic changes in the bases. Past History Past Medical History: No medical history, other (Reviewed) Past Surgical History: No surgical history, Other (Reviewed) Social history: single, other (Patient from [facility], in [facility] denies: smoking, alcohol abuse, prescription drug abuse, IV drug use Family history: hypertension Medications and Allergies Allergies Allergy/AdvReac Type Severity Reaction Status Date / Time No Known Allergies Allergy Unverified 08/06/19 11:39 Home Medications Medication Instructions Recorded Confirmed Last Taken Type Lisinopril [Zestril] 5 mg PO DAILY #90 tablet 08/09/19 Unknown Rx Metoprolol [Lopressor TAB] 50 mg PO TID #90 tablet 08/09/19 Unknown Rx Sennosides/Docusate Sodium [Senna 1 each PO HS PRN #30 tablet 08/09/19 Unknown Rx Plus 8.6-50 mg Tablet] Warfarin [Coumadin] 2.5 mg PO DAILY@1700 #30 tablet 08/09/19 Unknown Rx polyethylene glycoL 3350 [Miralax 17 gm PO QDAY PRN #30 packet 08/09/19 Unknown Rx 3350] Active Meds: Active Medications Acetaminophen (Tylenol) 650 mg PO Q4H PRN PRN Reason: Pain MILD(1-3)/Fever >100.5/SALGADO Albuterol (Proventil) 2.5 mg IH Q4HRT PRN PRN Reason: Shortness Of Breath Enoxaparin Sodium (Enoxaparin) 40 mg SUB-Q QDAY@2200 [facility] Last Admin: 08/08/19 21:43 Dose: 40 mg Documented by: Diltiazem HCl (Cardizem/D5w 100mg/100ml) 100 mg in 100 mls @ 5 mls/hr IV TITR [facility]; Protocol Last Admin: 08/08/19 01:32 Dose: 5 mg/hr, 5 mls/hr Documented by: Lisinopril (Zestril) 5 mg PO QDAY [facility] Metoprolol Tartrate (Metoprolol) 50 mg PO TID [facility] Last Admin: 08/09/19 13:54 Dose: 50 mg Documented by: Ondansetron HCl (Zofran) 4 mg IV Q8H PRN PRN Reason: Nausea And Vomiting Last Admin: 08/08/19 01:34 Dose: 4 mg Documented by: Sodium Chloride (Sodium Chloride Flush Syringe 10 Ml) 10 ml IV BID [facility] Last Admin: 08/09/19 11:23 Dose: 10 ml Documented by: Sodium Chloride (Sodium Chloride Flush Syringe 10 Ml) 10 ml IV PRN PRN PRN Reason: LINE FLUSH Warfarin Sodium (Coumadin) 2.5 mg PO DAILY@1700 [facility]; Protocol Review of Systems All systems: negative Physical Examination Vital signs: Vital Signs Temp Pulse Resp BP Pulse Ox 97.6 F 107 H 18 100/63 100 08/06/19 11:40 08/06/19 11:40 08/06/19 11:40 08/06/19 11:40 08/06/19 11:40 General appearance: no acute distress, alert Eyes: non-icteric ENT: oropharynx moist Neck: supple, no lymphadenopathy, no JVD Effort: normal Ascultation: Bilateral: rhonchi (Occasional rhonchi) Cardiovascular: regular rate and rhythm Gastrointestinal: normoactive bowel sounds, soft, non-distended Integumentary: normal Extremities: no cyanosis, no edema Musculoskeletal: no deformities Gait: normal gait, normal posture normal mental status, non-focal exam mood appropriate, affect normal Results - Laboratory Findings CBC and BMP: 08/06/19 12:33 08/06/19 12:33 PT/INR, D-dimer PT 22.2 Sec. (12.2-14.9) H 08/09/19 07:58 INR 1.91 (0.87-1.13) H 08/09/19 07:58 Abnormal lab findings: Abnormal Labs 08/06/19 08/06/19 08/06/19 12:33 12:33 12:33 Lymph % (Auto) 10.1 L Baso % (Auto) 2.4 H Lymph # 0.7 L Baso # 0.2 H Seg Neutrophils % 80.6 H PT 15.9 H INR 1.25 H Carbon Dioxide 20 L Glucose 108 H Direct Bilirubin 0.4 H ALT 65 H NT-Pro-B Natriuret Pep 3420 H Albumin 3.8 L Free T4 08/06/19 08/08/19 08/09/19 12:33 06:29 07:58 Lymph % (Auto) Baso % (Auto) Lymph # Baso # Seg Neutrophils % PT 15.8 H 22.2 H INR 1.24 H 1.91 H Carbon Dioxide Glucose Direct Bilirubin ALT NT-Pro-B Natriuret Pep Albumin Free T4 1.71 H - Diagnostic Findings Chest x-ray: report reviewed (Pleural thickening versus small left pleural e ffusion. Mild atelectatic changes in the bases. ), image reviewed Assessment and Plan 69-year-old male with nicotine dependence presents to the ED for evaluation. Patient states that he has experienced "fast heartbeat" over the past 10 days with worsening symptoms over the past 2 days. Patient acknowledges decreased exercise tolerance, dyspnea with exertion, shortness of breath. Patient states that the symptoms were initially intermittent but have become increasingly frequent over the past 2 days. Patient also acknowledges discomfort in his chest which follows the episodes of fast heartbeat. Patient underwent EKG and was found to have atrial fibrillation with rapid ventricular response as well as symptoms and clinical findings consistent with CHF decompensation. Patient placed on Cardizem drip and admitted to [facility] for medical stabilization due to high risk for cardiac decompensation. Patient denies fever, chills, chest pain, productive cough, skin rash, recent ill contacts, unilateral leg swelling, prolonged travel/immobility, individual/family history of DVT/PE/bleeding/blood clotting disorders, unintentional weight loss, night sweats. Patient counseled regarding noncompliance with outpatient physician follow-up. Pt is originally from [facility]. He denies any smoking history, alcohol, or drug use. 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 Currently, pt is alert and awake. No acute respiratory distress. He reports slight shortness of breath. He denies any chest pain or cough. He is resting on room air with an O2 saturation of 94%. Pt is not using his supplemental O2 via nasal cannula as recommended. He is afebrile and has no leukocytosis. CXR from 08/06/19 reported Pleural thickening versus small left pleural effusion. Mild atelectatic changes in the bases. - Patient Problems (1) Atrial fibrillation with RVR Status: Acute Plan to address problem: Pt is on warfarin Management as per cardiology (2) CHF (congestive heart failure) Status: Acute Qualifiers: Heart failure type: systolic Heart failure chronicity: acute Qualified Code(s): I50.21 - Acute systolic (congestive) heart failure Plan to address problem: Management as per cardiology (3) Cardiomyopathy Status: Acute Plan to address problem: Management as per cardiology (4) Chest pain Status: Acute Qualifiers: Chest pain type: unspecified Qualified Code(s): R07.9 - Chest pain, unspecified Plan to address problem: Management as per cardiology (5) Heart failure with reduced ejection fraction Status: Acute Plan to address problem: Management as per cardiology
[2019-08-09 16:37] VITALS: BP 119/87
[2019-08-09] MEDS ORDERED: WARFARIN 2.5 MG TAB PO SCH (17:00)
[2019-08-10] MEDS ORDERED: LISINOPRIL 5 MG TAB PO SCH (10:00)
== END 2019-08-09 18:39 | disposition home or self-care (01) | DRG 308 ==
LOC: ED 11:37 → IMCU 14:37 → CC1 19:21 → 4A 08-07 15:50
PROVIDERS: ADMIT Internal Medicine; ATTEND Internal Medicine
DX: I48.91 Unspecified atrial fibrillation (principal); I50.23 Acute on chronic systolic (congestive) heart failure; F17.213 Nicotine dependence, cigarettes, with withdrawal; D68.59 Other primary thrombophilia; Z71.6 Tobacco abuse counseling; I42.8 Other cardiomyopathies; I27.20 Pulmonary hypertension, unspecified; Z79.01 Long term (current) use of anticoagulants; Z82.49 Family history of ischemic heart disease and other diseases of the circulatory system; Z91.14 Patient's other noncompliance with medication regimen
CPT/HCPCS: 36415; 71045; 78452; 80048; 80076; 83735; 83880; 84439; 84443; 84484; 85025; 85610; 85730; 93005; 93010; 93017; 93306; 94640; 94760; G0378; A9502; J1650; J2405; J2785

== ENCOUNTER 2022-03-10 22:22 | Inpatient (IN) | payer SELFPAY ==
[2022-03-10] MEDS ORDERED: dilTIAZem 25 MG/5 ML INJ IV ONE (23:30)
--- NOTE | 2022-03-10 23:50 | XRay Report ---
CHEST 1 VIEW 03/10/2022 11:32 PM INDICATION / CLINICAL INFORMATION: Chest Pain. COMPARISON: 08/06/2019 chest FINDINGS: SUPPORT DEVICES: None. HEART / MEDIASTINUM: No significant abnormality. LUNGS / PLEURA: Stable left costophrenic angle blunting, which may represent a small chronic pleural effusion versus pleural thickening. Mild pulmonary hyperinflation and mild central peribronchial thic kening. No acute pneumonia or pulmonary edema. No pneumothorax. ADDITIONAL FINDINGS: None IMPRESSION: 1. Mild chronic findings, as detailed above, without acute radiographic process. Signer Name: Levi Garcia MD Signed: 03/10/2022 11:46 PM Workstation Name: .[employer]
[2022-03-10] MEDS ORDERED: AMIODARONE 150 MG/100 ML-ED 150 MG/100 ML BAG IV ONE (23:52)
--- NOTE | 2022-03-10 23:52 | Emergency Department Report ---
ED Palpitations HPI - General Chief Complaint: Chest Pain Stated Complaint: CP/DIFFICULTY BREATHING Time Seen by Provider: 03/10/22 23:30 Source: patient, family Mode of arrival: Wheelchair Limitations: Language Barrier - History of Present Illness Initial Comments: Patient is a 72-year-old male with history of A. fib on warfarin presenting with complaint of palpitations and shortness of breath intermittently for the past 8 days. States symptoms worsened 2 days ago. Reports severe shortness of breath with exertion. MD Complaint: palpitations - Related Data Previous Rx's Medication Instructions Recorded Last Taken Type Lisinopril [Zestril] 5 mg PO DAILY #90 tablet 08/09/19 Unknown Rx Metoprolol [Lopressor TAB] 50 mg PO TID #90 tablet 08/09/19 Unknown Rx Sennosides/Docusate Sodium [Senna 1 each PO HS PRN #30 tablet 08/09/19 Unknown Rx Plus 8.6-50 mg Tablet] Warfarin [Coumadin] 2.5 mg PO DAILY@1700 #30 tablet 08/09/19 Unknown Rx polyethylene glycoL 3350 [Miralax 17 gm PO QDAY PRN #30 packet 08/09/19 Unknown Rx 3350] Allergies Allergy/AdvReac Type Severity Reaction Status Date / Time No Known Allergies Allergy Unverified 08/06/19 11:39 ED Review of Systems ROS: Stated complaint: CP/DIFFICULTY BREATHING Other details as noted in HPI Constitutional: denies: chills, fever Respiratory: shortness of breath, SOB with exertion Cardiovascular: palpitations, dyspnea on exertion Gastrointestinal: denies: abdominal pain, nausea, diarrhea Genitourinary: denies: urgency, dysuria Musculoskeletal: denies: back pain, joint swelling, arthralgia Skin: denies: rash, lesions Neurological: denies: headache, weakness, paresthesias Psychiatric: denies: anxiety, depression ED Past Medical Hx - Social History Smoking Status: Never Smoker Substance Use Type: None - Medications Home Medications: Home Medications Medication Instructions Recorded Confirmed Last Taken Type Lisinopril [Zestril] 5 mg PO DAILY #90 tablet 08/09/19 Unknown Rx Metoprolol [Lopressor TAB] 50 mg PO TID #90 tablet 08/09/19 Unknown Rx Sennosides/Docusate Sodium [Senna 1 each PO HS PRN #30 tablet 08/09/19 Unknown Rx Plus 8.6-50 mg Tablet] Warfarin [Coumadin] 2.5 mg PO DAILY@1700 #30 tablet 08/09/19 Unknown Rx polyethylene glycoL 3350 [Miralax 17 gm PO QDAY PRN #30 packet 08/09/19 Unknown Rx 3350] ED Physical Exam - General Limitations: Language Barrier General appearance: alert, in no apparent distress - Head Head exam: Present: atraumatic, normocephalic - Respiratory Respiratory exam: Present: normal lung sounds bilaterally. Absent: respiratory distress - Cardiovascular Cardiovascular Exam: Present: tachycardia, irregular rhythm - GI/Abdominal GI/Abdominal exam: Present: soft. Absent: distended, tenderness - Rectal Rectal exam: Present: deferred - Neurological Exam Neurological exam: Present: alert, oriented X3 - Psychiatric Psychiatric exam: Present: normal affect, normal mood - Skin Skin exam: Present: warm, dry, intact, normal color ED Course Vital Signs 03/10/22 03/11/22 03/11/22 22:44 00:00 00:16 Temperature 98.3 F Pulse Rate 140 H 148 H 149 H Respiratory 24 21 24 Rate Blood Pressure 115/93 106/71 110/85 O2 Sat by Pulse 98 96 95 Oximetry 03/11/22 03/11/22 03/11/22 00:30 00:46 01:00 Temperature Pulse Rate 146 H 135 H 129 H Respiratory 18 13 16 Rate Blood Pressure 110/85 104/76 110/85 O2 Sat by Pulse 94 97 98 Oximetry 03/11/22 01:16 Temperature Pulse Rate 139 H Respiratory 14 Rate Blood Pressure 123/87 O2 Sat by Pulse 95 Oximetry ED Medical Decision Making - Lab Data Result diagrams: 03/10/22 23:33 03/10/22 23:33 - Medical Decision Making EKG reveals A. fib with RVR with rate of 158. Patient given 150 mg bolus of amiodarone. Chest x-ray reveals chronic findings without acute process. Labs reviewed. Mildly elevated LFTs. BNP 9822. On reassessment patient remains in A. fib with RVR. He was started on amiodarone drip. Will admit to hospitalist. Critical Care Time: Yes Critical care time in (mins) excluding proc time.: 60 Critical care attestation.: If time is entered above; I have spent that time in minutes in the direct care of this critically ill patient, excluding procedure time. ED Disposition Clinical Impression: Atrial fibrillation with RVR Disposition: 09 ADMITTED INPATIENT Is pt being admited?: Yes Condition: Stable
[2022-03-11 00:32] LABS: Basophils % (Auto) 0.5 % (0.0-1.8); Eosinophils % (Auto) 0.5 % (0.0-4.3); Hematocrit 43.5 % (35.5-45.6); Hemoglobin 14.1 gm/dl (11.8-15.2); Lymphocytes # (Auto) 1.1 K/mm3 (1.2-5.4); Lymphocytes % (Auto) 16.6 % (13.4-35.0); Mean Corpuscular HGB Conc 32 % (32-34); Mean Corpuscular Volume 96 fl (84-94); Monocytes # (Auto) 0.6 K/mm3 (0.0-0.8); Platelet Count 157 K/mm3 (140-440); Red Blood Count 4.55 M/mm3 (3.65-5.03); Red Cell Distribution Width 14.1 % (13.2-15.2)
[2022-03-11 00:37] LABS: Alanine Aminotransferase 103 units/L (7-56); Albumin 3.9 g/dL (3.9-5); BUN/Creatinine Ratio 24; Blood Urea Nitrogen 22 mg/dL (9-20); Hemolysis Index 6
[2022-03-11 00:50] LABS: INR 1.2 (0.87-1.13)
[2022-03-11 00:51] LABS: Partial Thromboplastin Time 31.4 Sec. (24.2-36.6)
[2022-03-11] MEDS ORDERED: SODIUM CHLORIDE 0.9% 1000 ML 1,000 ML IV ONE (01:27)
[2022-03-11] MEDS: AMIODARONE HCL 450 MG in DEXTROSE 5% IN WATER 241 ML IV SCH ×3 (01:52→08:30)
[2022-03-11] MEDS ORDERED: traMADol 50 MG TAB PO PRN (04:20)
[2022-03-11] MEDS ORDERED: MORPHINE 4 MG/1 ML INJ IV PRN (04:20)
[2022-03-11] MEDS ORDERED: ACETAMINOPHEN 325 MG TAB PO PRN (04:20)
[2022-03-11] MEDS ORDERED: SENNOSIDES/DOCUSATE SODIUM 8.6/50 MG TAB PO PRN (04:23)
[2022-03-11] MEDS ORDERED: POLYETHYLENE GLYCOL 3350 17 GM POWDER PO PRN (04:23)
--- NOTE | 2022-03-11 04:29 | History and Physical Report ---
History of Present Illness Date of examination: 03/11/22 Date of admission: 03/11/22 Chief complaint: Palpitation Shortness of breath History of present illness: 72-year-old male with history of A. fib on warfarin was brought to the emergency room because of palpitations and shortness of breath intermittently for the past 8 days. States symptoms worsened 2 days ago. Reports severe shortness of breath with exertion. In the emergency room EKG reveals A. fib with RVR with rate of 158. Patient given 150 mg bolus of amiodarone. Chest x-ray reveals chronic findings without acute process. Labs reviewed. Mildly elevated LFTs. BNP 9822. On reassessment patient remains in A. fib with RVR. He was started on amiodarone drip. Past History Past Medical History: atrial fib, hypertension Past Surgical History: No surgical history Social history: no significant social history Family history: hypertension Medications and Allergies Allergies Allergy/AdvReac Type Severity Reaction Status Date / Time No Known Allergies Allergy Unverified 08/06/19 11:39 Home Medications Medication Instructions Recorded Confirmed Last Taken Type Lisinopril [Zestril] 5 mg PO DAILY #90 tablet 08/09/19 Unknown Rx Metoprolol [Lopressor TAB] 50 mg PO TID #90 tablet 08/09/19 Unknown Rx Sennosides/Docusate Sodium [Senna 1 each PO HS PRN #30 tablet 08/09/19 Unknown Rx Plus 8.6-50 mg Tablet] Warfarin [Coumadin] 2.5 mg PO DAILY@1700 #30 tablet 08/09/19 Unknown Rx polyethylene glycoL 3350 [Miralax 17 gm PO QDAY PRN #30 packet 08/09/19 Unknown Rx 3350] Active Meds: Active Medications Acetaminophen (Acetaminophen 325 Mg Tab) 650 mg PO Q6H PRN PRN Reason: Pain, Mild (1-3) Aspirin (Aspirin Ec 325 Mg Tab) 325 mg PO QDAY RIMA Atorvastatin Calcium (Atorvastatin 40 Mg Tab) 40 mg PO QHS RIMA AMIODARONE HCL 450 mg/ (Dextrose) 250 mls @ 33.333 mls/hr IV DIRECT RIMA; Protocol Last Admin: 03/11/22 01:52 Dose: 1 mg/min, 33.333 mls/hr Lisinopril (Lisinopril 5 Mg Tab) 5 mg PO DAILY RIMA Metoprolol Tartrate (Metoprolol Tartrate 50 Mg Tab) 50 mg PO TID [facility] Morphine Sulfate (Morphine 4 Mg/1 Ml Inj) 2 mg IV Q5MIN PRN PRN Reason: Chest Pain unrelieved by NTG Nitroglycerin (Nitroglycerin 0.4 Mg Tab Subl) 0.4 mg SL Q5M PRN PRN Reason: Chest Pain Pantoprazole Sodium (Pantoprazole 40 Mg Tab) 40 mg PO QDAY [facility] Polyethylene Glycol (Polyethylene Glycol 3350 17 Gm Powder) 17 gm PO QDAY PRN PRN Reason: Constipation Senna/Docusate Sodium (Sennosides/Docusate Sodium 8.6/50 Mg Tab) 1 tab PO HS PRN PRN Reason: Constipation Sodium Chloride (Sodium Chloride 0.9% 10 Ml Flush Syringe) 10 ml IV PRN PRN PRN Reason: LINE FLUSH Tramadol HCl (Tramadol 50 Mg Tab) 50 mg PO Q6H PRN PRN Reason: Pain, Moderate (4-6) Warfarin Sodium (Warfarin 2.5 Mg Tab) 2.5 mg PO DAILY@1700 [facility]; Protocol Review of Systems All systems: negative Cardiovascular: chest pain, palpitations, shortness of breath, dyspnea on exertion Exam - Constitutional Vitals: Temp Pulse Resp BP Pulse Ox 98.3 F 135 H 16 115/86 99 03/10/22 22:44 03/11/22 03:00 03/11/22 03:00 03/11/22 03:00 03/11/22 03:00 General appearance: Present: no acute distress, well-nourished - EENT Eyes: Present: PERRL ENT: hearing intact, clear oral mucosa - Neck Neck: Present: supple, normal ROM - Respiratory Respiratory effort: normal Respiratory: bilateral: CTA - Cardiovascular Heart Sounds: Present: S1 & S2. Absent: rub, click - Extremities Extremities: pulses symmetrical, No edema Peripheral Pulses: within normal limits - Abdominal General gastrointestinal: Present: soft, non-tender, non-distended, normal bowel sounds Male genitourinary: Present: normal - Integumentary Integumentary: Present: clear, warm, dry - Musculoskeletal Musculoskeletal: gait normal, strength equal bilaterally - Psychiatric Psychiatric: appropriate mood/affect, intact judgment & insight - Neurologic Neurologic: CNII-XII intact, moves all extremities HEART Score - HEART Score Troponin: Troponin T < 0.010 ng/mL (0.00-0.029) 03/10/22 23: Results - Labs CBC & Chem 7: 03/10/22 23:33 03/10/22 23: Labs: Laboratory Last Values WBC 6.8 K/mm3 (4.5-11.0) 03/10/22 23: RBC 4.55 M/mm3 (3.65-5.03) 03/10/22 23: Hgb 14.1 gm/dl (11.8-15.2) 03/10/22 23: Hct 43.5 % (35.5-45.6) 03/10/22: MCV 96 fl (84-94) H 03/10/22: MCH 31 pg (28-32) 03/10/22: MCHC 32 % (32-34) 03/10/22: RDW 14.1 % (13.2-15.2) 03/10/22: Plt Count 157 K/mm3 (140-440) 03/10/22 23: Lymph % (Auto) 16.6 % (13.4-35.0) 03/10/22 23: [place] % (Auto) 9.0 % (0.0-7.3) H 03/10/22: Eos % (Auto) 0.5 % (0.0-4.3) 03/10/22: Baso % (Auto) 0.5 % (0.0-1.8) 03/10/22: Lymph # (Auto) 1.1 K/mm3 (1.2-5.4) L 03/10/22: [place] # (Auto) 0.6 K/mm3 (0.0-0.8) 03/10/22: Eos # (Auto) 0.0 K/mm3 (0.0-0.4) 03/10/22: Baso # (Auto) 0.0 K/mm3 (0.0-0.1) 03/10/22 23: Seg Neutrophils % 73.4 % (40.0-70.0) H 03/10/22 23: Seg Neutrophils # 5.0 K/mm3 (1.8-7.7) 03/10/22 23:33 PT 16.9 Sec. (12.2-14.9) H 03/10/22 23:33 INR 1.20 (0.87-1.13) H 03/10/22 23:33 APTT 31.4 Sec. (24.2-36.6) 03/10/22 23:33 Sodium 136 mmol/L (137-145) L 03/10/22 23:33 Potassium 4.6 mmol/L (3.6-5.0) 03/10/22 23:33 Chloride 99.8 mmol/L (98-107) 03/10/22 23:33 Carbon Dioxide 23 mmol/L (22-30) 03/10/22 23:33 Anion Gap 18 mmol/L 03/10/22 23:33 BUN 22 mg/dL (9-20) H 03/10/22 23:33 Creatinine 0.9 mg/dL (0.8-1.3) 03/10/22 23:33 Estimated GFR > 60 ml/min 03/10/22 23:33 BUN/Creatinine Ratio 24 % 03/10/22 23:33 Glucose 107 mg/dL (75-100) H 03/10/22 23:33 Calcium 9.0 mg/dL (8.4-10.2) 03/10/22 23:33 Total Bilirubin 1.70 mg/dL (0.1-1.2) H 03/10/22 23:33 AST 64 units/L (5-40) H 03/10/22 23:33 ALT 103 units/L (7-56) H 03/10/22 23:33 Alkaline Phosphatase 73 units/L (35-129) 03/10/22 23:33 Troponin T < 0.010 ng/mL (0.00-0.029) 03/10/22 23:33 NT-Pro-B Natriuret Pep 9822 pg/mL (0-900) H 03/10/22 23:33 Total Protein 6.8 g/dL (6.3-8.2) 03/10/22 23:33 Albumin 3.9 g/dL (3.9-5) 03/10/22 23:33 Albumin/Globulin Ratio 1.3 % 03/10/22 23:33 - Imaging and Cardiology Chest x-ray: report reviewed Assessment and Plan VTE prophylaxis?: Chemical Plan of care discussed with patient/family: Yes - Patient Problems (1) Atrial fibrillation with RVR Current Visit: Yes Status: Acute Plan to address problem: Admit the patient to the medical ICU. Oxygen via nasal wang 3 to permit. DuoNeb by nebulizer every 4 hours. Amiodarone drip as per protocol. Aspirin 325 mg p.o. daily. Lipitor 40 mg p.o. daily. Echocardiogram. Serial cardiac enzymes. Cardiology evaluation. Critical care evaluation (2) CHF (congestive heart failure) Current Visit: No Status: Acute Qualifiers: Plan to address problem: Stable. Avoid fluid overload. Daily weight. Maintain input output. Echocardiogram. Cardiology evaluation (3) Cardiomyopathy Current Visit: No Status: Acute Plan to address problem: Amiodarone drip as per protocol. Aspirin 325 mg p.o. daily. Lipitor 40 mg p.o. daily. Echocardiogram. Serial cardiac enzymes. Cardiology evaluation. Critical care evaluation (4) Nicotine dependence Current Visit: No Status: Acute Qualifiers: Plan to address problem: We counseled regarding quitting smoking. We put the patient on nicotine patch (5) Nonischemic cardiomyopathy Current Visit: No Status: Chronic Plan to address problem: Amiodarone drip as per protocol. Aspirin 325 mg p.o. daily. Lipitor 40 mg p.o. daily. Echocardiogram. Serial cardiac enzymes. Cardiology evaluation. Critical care evaluation (6) DVT prophylaxis Current Visit: No Status: Acute Plan to address problem: Warfarin for DVT prophylaxis. Protonix 40 mg p.o. daily for GI prophylaxis. Patient is a full code
[2022-03-11] MEDS ORDERED: NICOTINE 14 MG/24 HR PATCH TD ONE (04:31)
[2022-03-11] MEDS ORDERED: dilTIAZem 25 MG/5 ML INJ IV ONE (04:53)
[2022-03-11] MEDS ORDERED: ONDANSETRON 4 MG/2 ML INJ ONE (06:44)
[2022-03-11] MEDS: METOPROLOL TARTRATE 50 MG TAB PO SCH ×3 (07:51→20:47)
[2022-03-11] MEDS: NITROGLYCERIN 0.4 MG TAB SUBL SL PRN ×3 (09:07→09:45)
[2022-03-11] MEDS: ONDANSETRON 4 MG/2 ML INJ IV PRN ×4 (09:22→22:40)
[2022-03-11] MEDS ORDERED: ASPIRIN 325 MG TAB PO SCH (09:45)
[2022-03-11 09:46] LABS: Basophils % (Auto) 0.4 % (0.0-1.8); Eosinophils % (Auto) 0.1 % (0.0-4.3); Hematocrit 40.9 % (35.5-45.6); Hemoglobin 13.3 gm/dl (11.8-15.2); Lymphocytes # (Auto) 0.9 K/mm3 (1.2-5.4); Lymphocytes % (Auto) 12.6 % (13.4-35.0); Mean Corpuscular HGB Conc 33 % (32-34); Mean Corpuscular Volume 96 fl (84-94); Monocytes # (Auto) 0.5 K/mm3 (0.0-0.8); Monocytes % (Auto) 7.2 % (0.0-7.3); Platelet Count 157 K/mm3 (140-440); Red Blood Count 4.26 M/mm3 (3.65-5.03); Red Cell Distribution Width 14.3 % (13.2-15.2)
[2022-03-11 09:58] LABS: INR 1.25 (0.87-1.13)
[2022-03-11] MEDS ORDERED: PANTOPRAZOLE 40 MG TAB PO SCH (10:00)
[2022-03-11] MEDS ORDERED: LISINOPRIL 5 MG TAB PO SCH (10:00)
[2022-03-11] MEDS ORDERED: FAMOTIDINE 20 MG TAB PO SCH (10:00)
[2022-03-11 10:11] LABS: Creatine Kinase MB 4.6 ng/mL (0.0-4.0)
[2022-03-11 10:13] LABS: Alanine Aminotransferase 137 units/L (7-56); Albumin 3.9 g/dL (3.9-5); BUN/Creatinine Ratio 28; Bilirubin,Direct 0.6 mg/dL (0-0.2); Blood Urea Nitrogen 22 mg/dL (9-20); Calcium 8.4 mg/dL (8.4-10.2); Hemolysis Index 2
[2022-03-11] MEDS ORDERED: HEPARIN PRN BOLUS(standard intensity drip) IV (10:22)
--- NOTE | 2022-03-11 10:28 | XRay Report ---
ABDOMEN 1 VIEW(S) INDICATION / CLINICAL INFORMATION: Epigastric pain, nausea and vomiting. COMPARISON: None available. FINDINGS: TUBES / LINES: None. BOWEL GAS PATTERN: No significant abnormality. FREE AIR / EXTRALUMINAL GAS: None seen. ADDITIONAL FINDINGS: No significant additional findings. IMPRESSION: No significant abnormality. Signer Name: Daniel Salas Jr, MD Signed: 03/11/2022 10:24 AM Workstation Name: [id number]
[2022-03-11] MEDS ORDERED: FUROSEMIDE 20 MG/2 ML INJ IV SCH (10:30)
[2022-03-11] MEDS ORDERED: HEPARIN BOLUS 10,000 UNIT/10 ML VIAL IV SCH (10:30)
--- NOTE | 2022-03-11 10:34 | Progress Note ---
Assessment and Plan Assessment and plan: This is a 72-year-old male with known past medical history of HFrEF, nonischemic cardiomyopathy, HTN, paroxysmal atrial fibrilation, was on warfarin at home admitted for CP and atrial fibrillation with RVR Hospital Course to Date: 03/11: still c/o of severe CP/epigatric pain accompanied with nausea/vomiting, treated per CP protocol. Troponin is negative X2, repeat EKG shows Afib with no significant ST. Patient remains on the Amiodarone gtt, still in Afib but rate control this am, VSS. Orders placed for CTA abd/pelvis to r/o ischemia. Heparin gtt initiated per protocol. Patient is up to 4L NC this am, Echo from 2019 reviewed, LVEF 20 to 25%. X1 dose of IV lasix this am. Transaminitis also noted, awaiting CTA result. On amiodarone gtt, will continue to trend LFTs for now. Cardiology and CCM also following. Plan of care discussed with patient using the hand etcher line, all questions and concerns were addressed at this time. Assessment and Plan #Atrial Fibrillation with RVR #Heart Failure with Reduced EF #Nonischemic cardiomyopathy #Hypertension - Remains in Afib, rate control. On amiodarone gtt - C/o CP/epigastric pain. troponin negX2, EKG with no ST changes - Cardiology consulted, appreciate recommendations - Continue ASA, metoprolol, lisinopril, and statin - 2019 echo reviewed, LVEF 20-25% - Increased O2 requirement this am, s/p X1 dose of 20mg IV lasix - repeat echo pending - Continue CP protocol, trend troponin - Continue blood pressure monitor per protocol - Maintain MAP above 65 - Strict I&Os, daily weight - CCM is also following - Heparin gtt per protocol #Acute Hypoxic Respiratory Failure - most likely secondary to above - Up to 4L NC this am - S/p X1 dose 20mg IV lasix - Continue O2 supplementation and wean as tolerated - Continue SPO2 monitoring for SPO2 goal above 92% - CCM is following, appreciate recommendations #Transaminitis #Epigastric Pain #Nausea/Vomiting - Presented with mildly elevated LFTs - Given h/o of afib and subtheurapeutic INR c/o for possible bowel ischemia - CTA adb/pelvis ordered - Continue PRN analgesia for pain control - Continue PRN antiemetic for N/V - Continue to trend LFTs #Nicotine Dependence - Smoking cessation education provided using hand etcher line, patient verbalized understanding - Nicotine as needed if patient is experiencing any urges #GI/DVT Prophylaxis - PPI- protonix - Heparin gtt - SCDs to bilateral lower extremities while in bed #Advance Care Planning - Disease education data, care plan, diagnoses, and prognosis were discussed with patient at the bedside using the hand etcher line. Patient is a FULL code. Patient acknowledged understanding and agreed with current care plan. The high probability of a clinically significant, sudden or life threatening de terioration of the [multiple] system(s) required my full and direct attention, intervention and personal management. The aggregate critical care time was [60] minutes. This time is in addition to time spent performing reported procedures but includes the following: [x] Data Review and interpretation [x] Patient assessment and monitoring of vital signs [x] Documentation [x] Medication orders and management Disposition Plan: ICU Total Time Spent with Patient (Minutes): 60 History Interval history: Patient seen and examined at the bedside. AAO, on 4L NC this am. C/o of severe CP/epigastric pain this morning, accompanied with nausea/vomiting. Patient remains in afib but control rate, HR 70 to 80s, VSS Hospitalist Physical - Constitutional Vitals: Temp Pulse Resp BP Pulse Ox 97.6 F 95 H 21 105/80 95 03/11/22 07:23 03/11/22 09:45 03/11/22 05:49 03/11/22 09:45 03/11/22 05:49 General appearance: Present: severe distress, well-nourished - EENT Eyes: Present: PERRL, EOM intact ENT: hearing intact, clear oral mucosa - Neck Neck: Present: normal ROM - Respiratory Respiratory effort: normal Respiratory: bilateral: diminished - Cardiovascular Rhythm: irregularly irregular Heart Sounds: Present: S1 & S2 - Extremities Extremities: no ischemia, pulses intact, pulses symmetrical Peripheral Pulses: within normal limits - Abdominal General gastrointestinal: soft, non-distended, normal bowel sounds - Integumentary Integumentary: Present: warm, dry - Psychiatric Psychiatric: cooperative, agitated - Neurologic Neurologic: CNII-XII intact, moves all extremities - Allied Health Allied health notes reviewed: nursing, case management HEART Score - HEART Score Troponin: Troponin T < 0.010 ng/mL (0.00-0.029) 03/11/22 09:35 Results - Labs CBC & Chem 7: 03/11/22 09:35 03/11/22 09:35 Labs: Laboratory Last Values WBC 7.5 K/mm3 (4.5-11.0) 03/11/22 09:35 RBC 4.26 M/mm3 (3.65-5.03) 03/11/22 09:35 Hgb 13.3 gm/dl (11.8-15.2) 03/11/22 09:35 Hct 40.9 % (35.5-45.6) 03/11/22 09:35 MCV 96 fl (84-94) H 03/11/22 09:35 MCH 31 pg (28-32) 03/11/22 09:35 MCHC 33 % (32-34) 03/11/22 09:35 RDW 14.3 % (13.2-15.2) 03/11/22 09:35 Plt Count 157 K/mm3 (140-440) 03/11/22 09:35 Lymph % (Auto) 12.6 % (13.4-35.0) L 03/11/22 09:35 [place] % (Auto) 7.2 % (0.0-7.3) 03/11/22 09:35 Eos % (Auto) 0.1 % (0.0-4.3) 03/11/22 09:35 Baso % (Auto) 0.4 % (0.0-1.8) 03/11/22 09:35 Lymph # (Auto) 0.9 K/mm3 (1.2-5.4) L 03/11/22 09:35 [place] # (Auto) 0.5 K/mm3 (0.0-0.8) 03/11/22 09:35 Eos # (Auto) 0.0 K/mm3 (0.0-0.4) 03/11/22 09:35 Baso # (Auto) 0.0 K/mm3 (0.0-0.1) 03/11/22 09:35 Seg Neutrophils % 79.7 % (40.0-70.0) H 03/11/22 09:35 Seg Neutrophils # 6.0 K/mm3 (1.8-7.7) 03/11/22 09:35 PT 17.5 Sec. (12.2-14.9) H 03/11/22 09:35 INR 1.25 (0.87-1.13) H 03/11/22 09:35 APTT 31.4 Sec. (24.2-36.6) 03/10/22 23:33 Sodium 131 mmol/L (137-145) L 03/11/22 09:35 Potassium 4.4 mmol/L (3.6-5.0) 03/11/22 09:35 Chloride 98.5 mmol/L (98-107) 03/11/22 09:35 Carbon Dioxide 18 mmol/L (22-30) L 03/11/22 09:35 Anion Gap 19 mmol/L 03/11/22 09:35 BUN 22 mg/dL (9-20) H 03/11/22 09:35 Creatinine 0.8 mg/dL (0.8-1.3) 03/11/22 09:35 Estimated GFR > 60 ml/min 03/11/22 09:35 BUN/Creatinine Ratio 28 % 03/11/22 09:35 Glucose 173 mg/dL (75-100) H 03/11/22 09:35 Calcium 8.4 mg/dL (8.4-10.2) 03/11/22 09:35 Total Bilirubin 1.80 mg/dL (0.1-1.2) H 03/11/22 09:35 Direct Bilirubin 0.6 mg/dL (0-0.2) H 03/11/22 09:35 Indirect Bilirubin 1.2 mg/dL 03/11/22 09:35 AST 89 units/L (5-40) H 03/11/22 09:35 ALT 137 units/L (7-56) H 03/11/22 09:35 Alkaline Phosphatase 67 units/L (35-129) 03/11/22 09:35 Total Creatine Kinase 117 units/L (55-170) 03/11/22 09:35 CK-MB (CK-2) 4.6 ng/mL (0.0-4.0) H 03/11/22 09:35 CK-MB (CK-2) Rel Index 3.9 (0-4) 03/11/22 09:35 Troponin T < 0.010 ng/mL (0.00-0.029) 03/11/22 09:35 NT-Pro-B Natriuret Pep 9822 pg/mL (0-900) H 03/10/22 23:33 Total Protein 6.5 g/dL (6.3-8.2) 03/11/22 09:35 Albumin 3.9 g/dL (3.9-5) 03/11/22 09:35 Albumin/Globulin Ratio 1.5 % 03/11/22 09:35 Victor/IV: Voiding Method Condom Catheter Active Medications - Current Medications Current Medications: Generic Name Dose Route Start Last Admin Trade Name Freq PRN Reason Stop Dose Admin Acetaminophen 650 mg 03/11/22 04:20 Acetaminophen 325 Mg Tab PO Q6H PRN Pain, Mild (1-3) Aspirin 325 mg 03/12/22 10:00 Aspirin Ec 325 Mg Tab PO QDAY RIMA Aspirin 325 mg 03/11/22 09:45 03/11/22 09:27 Aspirin 325 Mg Tab PO 03/11/22 13:45 325 mg ONCE@0945 [facility] Administration Atorvastatin Calcium 40 mg 03/11/22 22:00 Atorvastatin 40 Mg Tab PO QHS RIMA Furosemide 20 mg 03/11/22 10:30 Furosemide 20 Mg/2 Ml Inj IV 03/11/22 14:30 ONCE@1030 [facility] Heparin Sodium (Porcine) 6,000 unit 03/11/22 10:30 Heparin Bolus 10,000 Unit/10 Ml Vial 80 unit/kg (6000 unit) 03/11/22 14:30 IV ONCE@1030 [facility] Heparin Sodium (Porcine) 3,000 unit 03/11/22 10:22 Heparin Prn Bolus(Standard Intensity Drip) 40 unit/kg (3000 unit) IV Q6H PRN For Heparin Anti-Xa < 0.1 AMIODARONE HCL 450 mg/ 250 mls @ 33.333 mls/hr 03/11/22 02:00 03/11/22 08:30 Dextrose IV 0.5 mg/min DIRECT RIMA 16.667 mls/hr Administration Protocol 1 MG/MIN Heparin Sodium/Sodium Chloride 25,000 unit in 250 mls @ 14.58 mls/hr 03/11/22 11:00 Heparin/ 0.45% Nacl-25,000 Unit/250 Ml IV TITR RIMA Protocol 18 UNITS/KG/HR Lisinopril 5 mg 03/12/22 10:00 Lisinopril 5 Mg Tab PO DAILY RIMA Metoprolol Tartrate 50 mg 03/11/22 08:00 03/11/22 07:51 Metoprolol Tartrate 50 Mg Tab PO 50 mg TID RIMA Administration Morphine Sulfate 2 mg 03/11/22 04:20 03/11/22 09:04 Morphine 4 Mg/1 Ml Inj IV 2 mg Q5MIN PRN Administration Chest Pain unrelieved by NTG Nitroglycerin 0.4 mg 03/11/22 04:20 03/11/22 09:45 Nitroglycerin 0.4 Mg Tab Subl SL 0.4 mg Q5M PRN Administration Chest Pain Ondansetron HCl 4 mg 03/11/22 06:43 03/11/22 09:22 Ondansetron 4 Mg/2 Ml Inj IV 4 mg Q4H PRN Administration Nausea And Vomiting Pantoprazole Sodium 40 mg 03/11/22 10:00 03/11/22 09:26 Pantoprazole 40 Mg Tab PO 40 mg QDAY RIMA Administration Polyethylene Glycol 17 gm 03/11/22 04:23 Polyethylene Glycol 3350 17 Gm Powder PO QDAY PRN Constipation Senna/Docusate Sodium 1 tab 03/11/22 04:23 Sennosides/Docusate Sodium 8.6/50 Mg Tab PO HS PRN Constipation Sodium Chloride 10 ml 03/11/22 04:20 Sodium Chloride 0.9% 10 Ml Flush Syringe IV PRN PRN LINE FLUSH Tramadol HCl 50 mg 03/11/22 04:20 Tramadol 50 Mg Tab PO Q6H PRN Pain, Moderate (4-6)
[2022-03-11] MEDS ORDERED: HEPARIN/ 0.45% NACL DRIP 25,000 UNIT/250 ML BAG IV SCH (11:00)
[2022-03-11] MEDS ORDERED: HEPARIN 10,000 UNITS/10 ML VIAL ONE (11:46)
--- NOTE | 2022-03-11 12:22 | Consultation ---
History of Present Illness - Reason for Consult Consult date: 03/11/22 Afib with RVR Requesting physician: TASHA GALVIN - History of Present Illness 72 y/o male with prior history of afib, last admitted here in 07/2019 for afib, presents per report to the ED with shortness of breath and chest pain. Found to be in RVR with subtherapeutic INR. Started on IV amio and admitted to the ICU for further monitoring. This am rate is controlled but initially thought to be complaining of chest pain. Cards at bedside with language line and now patient states that is abdominal pain. Specifically epigastic pain. Past History Past Medical History: atrial fib, heart failure, hypertension Past Surgical History: No surgical history Social history: no significant social history Family history: hypertension Medications and Allergies Allergies Allergy/AdvReac Type Severity Reaction Status Date / Time No Known Allergies Allergy Unverified 08/06/19 11:39 Home Medications Medication Instructions Recorded Confirmed Last Taken Type Lisinopril [Zestril] 5 mg PO DAILY #90 tablet 08/09/19 Unknown Rx Metoprolol [Lopressor TAB] 50 mg PO TID #90 tablet 08/09/19 Unknown Rx Sennosides/Docusate Sodium [Senna 1 each PO HS PRN #30 tablet 08/09/19 Unknown Rx Plus 8.6-50 mg Tablet] Warfarin [Coumadin] 2.5 mg PO DAILY@1700 #30 tablet 08/09/19 Unknown Rx polyethylene glycoL 3350 [Miralax 17 gm PO QDAY PRN #30 packet 08/09/19 Unknown Rx 3350] Active Meds: Active Medications Acetaminophen (Acetaminophen 325 Mg Tab) 650 mg PO Q6H PRN PRN Reason: Pain, Mild (1-3) Aspirin (Aspirin Ec 325 Mg Tab) 325 mg PO QDAY RIMA Aspirin (Aspirin 325 Mg Tab) 325 mg PO ONCE@0945 [facility] Stop: 03/11/22 13:45 Last Admin: 03/11/22 09:27 Dose: 325 mg Atorvastatin Calcium (Atorvastatin 40 Mg Tab) 40 mg PO QHS [facility] Furosemide (Furosemide 20 Mg/2 Ml Inj) 20 mg IV ONCE@1030 [facility] Stop: 03/11/22 14:30 Last Admin: 03/11/22 11:40 Dose: 20 mg Heparin Sodium (Porcine) (Heparin Bolus 10,000 Unit/10 Ml Vial) 6,000 unit 80 unit/kg (6000 unit) IV ONCE@1030 [facility] Stop: 03/11/22 14:30 Heparin Sodium (Porcine) (Heparin Prn Bolus(Standard Intensity Drip)) 3,000 unit 40 unit/kg (3000 unit) IV Q6H PRN PRN Reason: For Heparin Anti-Xa < 0.1 AMIODARONE HCL 450 mg/ (Dextrose) 250 mls @ 33.333 mls/hr IV DIRECT RIMA; Protocol Last Admin: 03/11/22 08:30 Dose: 0.5 mg/min, 16.667 mls/hr Heparin Sodium/Sodium Chloride (Heparin/ 0.45% Nacl-25,000 Unit/250 Ml) 25,000 unit in 250 mls @ 14.58 mls/hr IV TITR RIMA; Protocol Lisinopril (Lisinopril 5 Mg Tab) 5 mg PO DAILY RIMA Metoprolol Tartrate (Metoprolol Tartrate 50 Mg Tab) 50 mg PO TID [facility] Last Admin: 03/11/22 07:51 Dose: 50 mg Morphine Sulfate (Morphine 4 Mg/1 Ml Inj) 2 mg IV Q5MIN PRN PRN Reason: Chest Pain unrelieved by NTG Last Admin: 03/11/22 09:04 Dose: 2 mg Nitroglycerin (Nitroglycerin 0.4 Mg Tab Subl) 0.4 mg SL Q5M PRN PRN Reason: Chest Pain Last Admin: 03/11/22 09:45 Dose: 0.4 mg Ondansetron HCl (Ondansetron 4 Mg/2 Ml Inj) 4 mg IV Q4H PRN PRN Reason: Nausea And Vomiting Last Admin: 03/11/22 09:22 Dose: 4 mg Pantoprazole Sodium (Pantoprazole 40 Mg Tab) 40 mg PO QDAY [facility] Last Admin: 03/11/22 09:26 Dose: 40 mg Polyethylene Glycol (Polyethylene Glycol 3350 17 Gm Powder) 17 gm PO QDAY PRN PRN Reason: Constipation Senna/Docusate Sodium (Sennosides/Docusate Sodium 8.6/50 Mg Tab) 1 tab PO HS PRN PRN Reason: Constipation Sodium Chloride (Sodium Chloride 0.9% 10 Ml Flush Syringe) 10 ml IV PRN PRN PRN Reason: LINE FLUSH Tramadol HCl (Tramadol 50 Mg Tab) 50 mg PO Q6H PRN PRN Reason: Pain, Moderate (4-6) Review of Systems All systems: negative Exam - Constitutional Vitals: Temp Pulse Resp BP Pulse Ox 97.8 F 95 H 21 105/80 95 03/11/22 11:28 03/11/22 09:45 03/11/22 05:49 03/11/22 09:45 03/11/22 05:49 Results - Labs CBC & Chem 7: 03/11/22 09:35 03/11/22 09:35 Labs: Abnormal lab results 03/10/22 03/10/22 03/10/22 Range/Units 23:33 23:33 23:33 MCV 96 H (84-94) fl Lymph % (Auto) (13.4-35.0) % [place] % (Auto) 9.0 H (0.0-7.3) % Lymph # (Auto) 1.1 L (1.2-5.4) K/mm3 Seg Neutrophils % 73.4 H (40.0-70.0) % PT 16.9 H (12.2-14.9) Sec. INR 1.20 H (0.87-1.13) Sodium 136 L (137-145) mmol/L Carbon Dioxide (22-30) mmol/L BUN 22 H (9-20) mg/dL Glucose 107 H (75-100) mg/dL Total Bilirubin 1.70 H (0.1-1.2) mg/dL Direct Bilirubin (0-0.2) mg/dL AST 64 H (5-40) units/L ALT 103 H (7-56) units/L CK-MB (CK-2) (0.0-4.0) ng/mL NT-Pro-B Natriuret Pep (0-900) pg/mL 03/10/22 03/11/22 03/11/22 Range/Units 23:33 09:35 09:35 MCV 96 H (84-94) fl Lymph % (Auto) 12.6 L (13.4-35.0) % [place] % (Auto) (0.0-7.3) % Lymph # (Auto) 0.9 L (1.2-5.4) K/mm3 Seg Neutrophils % 79.7 H (40.0-70.0) % PT (12.2-14.9) Sec. INR (0.87-1.13) Sodium 131 L (137-145) mmol/L Carbon Dioxide 18 L (22-30) mmol/L BUN 22 H (9-20) mg/dL Glucose 173 H (75-100) mg/dL Total Bilirubin 1.80 H (0.1-1.2) mg/dL Direct Bilirubin 0.6 H (0-0.2) mg/dL AST 89 H (5-40) units/L ALT 137 H (7-56) units/L CK-MB (CK-2) (0.0-4.0) ng/mL NT-Pro-B Natriuret Pep 9822 H (0-900) pg/mL 03/11/22 03/11/22 Range/Units 09:35 09:35 MCV (84-94) fl Lymph % (Auto) (13.4-35.0) % [place] % (Auto) (0.0-7.3) % Lymph # (Auto) (1.2-5.4) K/mm3 Seg Neutrophils % (40.0-70.0) % PT 17.5 H (12.2-14.9) Sec. INR 1.25 H (0.87-1.13) Sodium (137-145) mmol/L Carbon Dioxide (22-30) mmol/L BUN (9-20) mg/dL Glucose (75-100) mg/dL Total Bilirubin (0.1-1.2) mg/dL Direct Bilirubin (0-0.2) mg/dL AST (5-40) units/L ALT (7-56) units/L CK-MB (CK-2) 4.6 H (0.0-4.0) ng/mL NT-Pro-B Natriuret Pep (0-900) pg/mL - Imaging and Cardiology Chest x-ray: image reviewed Abdominal x-ray: image reviewed Assessment and Plan 72 y/o male with afib with RVR, subtherapeutic INR and now right epigastric pain 1. KUB unremarkable 2. Suggest CTA of abdomen pelvis given prolonged history of afib and inadequate anticoagulation given subtherapeutic INR 3. Rate appears controlled with amio will defer to cards 4. Agree with heparin drip 5. IF CTA is negative, consider GI consult. Patient could have PUD 6. Abdominal pain could also be his anginal equivalent as well. Still would rule out cardiovascular causes as well.
--- NOTE | 2022-03-11 14:23 | Cat Scan Report ---
CTA ABDOMEN AND PELVIS WITH CONTRAST INDICATION / CLINICAL INFORMATION: Abdominal Pain, N/V. TECHNIQUE: Axial CT images were obtained through the abdomen and pelvis after 100 cc of Omnipaque 350 IV contras t. Sagittal and coronal reformatted images. 3 plane MIP and/or 3-D reconstructions were produced. All CT scans at this location are performed using CT dose reduction for ALARA by means of automated expo sure control. COMPARISON: None available. Comment: The patient was injected twice by the technologist for this exam. On the first attempt the I V infiltrated. On the second attempt contrast bolus timing is poor with very poor opacification of th e arterial structures. Overall this exam is suboptimal for evaluation of the arteries. FINDINGS: LOWER CHEST: Mild cardiomegaly. There are moderate layering bilateral pleural effusions. LIVER: No significant abnormality. GALLBLADDER: There is nonspecific gallbladder wall edema but no evidence for stones or abnormal dilat ation. BILE DUCTS: No significant abnormality. PANCREAS: No significant abnormality. SPLEEN: No significant abnormality. ADRENALS: No significant abnormality. RIGHT KIDNEY and URETER: No significant abnormality. LEFT KIDNEY and URETER: No significant abnormality. STOMACH and SMALL BOWEL: No significant abnormality. COLON: No significant abnormality. Mild sigmoid diverticulosis is noted. No evidence for diverticulit is. APPENDIX: Not clearly identified PERITONEUM: No free fluid. No free air. No fluid collection. LYMPH NODES: No significant adenopathy. AORTA and ARTERIES: Moderate atherosclerotic disease is identified in the abdominal aorta and iliac a rteries. There is mild dilatation of the distal aorta near the bifurcation measuring up to 3.9 cm in diameter. The common iliac arteries are also mildly dilated measuring up to 2.7 cm on the right and 2 .1 cm on the left. There is very little IV contrast within the aorta. There is no evidence for dissec tion or stenosis. There is mild mural thrombus in the distal aortic aneurysm. The celiac artery, mese nteric arteries and renal arteries are suboptimally opacified for CT examination but no gross occlusi on is suspected. IVC and VEINS: No significant abnormality. URINARY BLADDER: No significant abnormality. REPRODUCTIVE ORGANS: No significant abnormality. ADDITIONAL FINDINGS: A moderate umbilical hernia containing fat is identified. The hernia sac measure s up to 5.4 cm in diameter. SKELETAL SYSTEM: Nothing acute. Mild thoracolumbar spondylosis. IMPRESSION: Suboptimal examination for CTA. See above. There is aneurysmal dilatation of the distal aorta up to 3.9 cm which extends into the common iliac arteries. No secondary findings of ischemic bowel are appr eciated. CTA can be repeated if needed. These findings were discussed with Dr. Enriquez. Mild cardiomegaly and moderate bilateral pleural effusions. Mild sigmoid diverticulosis. Moderate umbilical hernia containing fat. Signer Name: Daniel Salas Jr, MD Signed: 03/11/2022 2:19 PM Workstation Name: [id number]
--- NOTE | 2022-03-11 15:07 | Consultation ---
History of Present Illness Consult date: 03/11/22 Requesting physician: TASHA GALVIN Consult reason: atrial fibrillation History of present illness: Patient 72-year-old male with a past medical history of A. fib, HFrEF, and cardiomyopathy, who presents to the ED with a complaint of shortness of breath, palpitations, abdominal pain, and malaise x9 days. History taken through use of wet cotton feeder due to patient being primarily [place]-speaking. Patient reports that for at least 9 days he is overall not feeling well. He reports that he has had abdominal pain primarily in his epigastric region that is associated with nausea and vomiting and worse with palpation. Patient states pain is relieved by pain medications admitted in the hospital. Patient describes the pain as stabbing and sharp. While patient has history of A. fib patient reports he has not been taking any medication and has not seen any providers. In the ED patient was found to be in A. fib with RVR and started on IV amiodarone and CXR showed chronic findings without any acute process. At time of interview patient denies any complaints of chest pain. Patient was previously seen by our practice during admission in 2019 however patient has not followed up. Cardiology is consulted for A. fib. Past History Past Medical History: atrial fib, heart failure, hypertension, other (Hernia) Past Surgical History: No surgical history Social history: no significant social history Family history: hypertension Medications and Allergies Allergies Allergy/AdvReac Type Severity Reaction Status Date / Time No Known Allergies Allergy Unverified 08/06/19 11:39 Home Medications Medication Instructions Recorded Confirmed Last Taken Type Lisinopril [Zestril] 5 mg PO DAILY #90 tablet 08/09/19 Unknown Rx Metoprolol [Lopressor TAB] 50 mg PO TID #90 tablet 08/09/19 Unknown Rx Sennosides/Docusate Sodium [Senna 1 each PO HS PRN #30 tablet 08/09/19 Unknown Rx Plus 8.6-50 mg Tablet] Warfarin [Coumadin] 2.5 mg PO DAILY@1700 #30 tablet 08/09/19 Unknown Rx polyethylene glycoL 3350 [Miralax 17 gm PO QDAY PRN #30 packet 08/09/19 Unknown Rx 3350] Active Meds: Active Medications Acetaminophen (Acetaminophen 325 Mg Tab) 650 mg PO Q6H PRN PRN Reason: Pain, Mild (1-3) Aspirin (Aspirin Ec 325 Mg Tab) 325 mg PO QDAY [facility] Atorvastatin Calcium (Atorvastatin 40 Mg Tab) 40 mg PO QHS [facility] Heparin Sodium (Porcine) (Heparin Prn Bolus(Standard Intensity Drip)) 3,000 unit 40 unit/kg (3000 unit) IV Q6H PRN PRN Reason: For Heparin Anti-Xa < 0.1 AMIODARONE HCL 450 mg/ (Dextrose) 250 mls @ 33.333 mls/hr IV DIRECT RIMA; Protocol Last Admin: 03/11/22 08:30 Dose: 0.5 mg/min, 16.667 mls/hr Heparin Sodium/Sodium Chloride (Heparin/ 0.45% Nacl-25,000 Unit/250 Ml) 25,000 unit in 250 mls @ 14.58 mls/hr IV TITR RIMA; Protocol Last Titration: 03/11/22 14:50 Dose: 18 units/kg/hr, 14.58 mls/hr Lisinopril (Lisinopril 5 Mg Tab) 5 mg PO DAILY [facility] Metoprolol Tartrate (Metoprolol Tartrate 50 Mg Tab) 50 mg PO TID [facility] Last Admin: 03/11/22 14:50 Dose: 50 mg Morphine Sulfate (Morphine 4 Mg/1 Ml Inj) 2 mg IV Q5MIN PRN PRN Reason: Chest Pain unrelieved by NTG Last Admin: 03/11/22 09:04 Dose: 2 mg Nitroglycerin (Nitroglycerin 0.4 Mg Tab Subl) 0.4 mg SL Q5M PRN PRN Reason: Chest Pain Last Admin: 03/11/22 09:45 Dose: 0.4 mg Ondansetron HCl (Ondansetron 4 Mg/2 Ml Inj) 4 mg IV Q4H PRN PRN Reason: Nausea And Vomiting Last Admin: 03/11/22 09:22 Dose: 4 mg Pantoprazole Sodium (Pantoprazole 40 Mg Tab) 40 mg PO QDAY [facility] Last Admin: 03/11/22 09:26 Dose: 40 mg Polyethylene Glycol (Polyethylene Glycol 3350 17 Gm Powder) 17 gm PO QDAY PRN PRN Reason: Constipation Senna/Docusate Sodium (Sennosides/Docusate Sodium 8.6/50 Mg Tab) 1 tab PO HS PRN PRN Reason: Constipation Sodium Chloride (Sodium Chloride 0.9% 10 Ml Flush Syringe) 10 ml IV PRN PRN PRN Reason: LINE FLUSH Tramadol HCl (Tramadol 50 Mg Tab) 50 mg PO Q6H PRN PRN Reason: Pain, Moderate (4-6) Review of Systems Constitutional: malaise Ears, nose, mouth and throat: no sinus pressure, no sinus pain Cardiovascular: palpitations, shortness of breath, no chest pain Respiratory: shortness of breath Gastrointestinal: abdominal pain, nausea, vomiting Musculoskeletal: no neck stiffness, no neck pain Integumentary: no rash, no pruritis, no redness Neurological: no head injury, no transient paralysis, no paralysis Psychiatric: no anxiety, no memory loss Endocrine: no cold intolerance, no heat intolerance Hematologic/Lymphatic: no easy bruising, no easy bleeding Physical Examination Vital Signs Temp Pulse Resp BP Pulse Ox 98.3 F 140 H 24 115/93 98 03/10/22 22:44 03/10/22 22:44 03/10/22 22:44 03/10/22 22:44 03/10/22 22:44 General appearance: no acute distress HEENT: Positive: PERRL Neck: Positive: trachea midline Cardiac: Positive: irregularly irregular Lungs: Positive: Normal Breath Sounds Neuro: Positive: Grossly Intact Abdomen: Positive: Soft, Other (Hernia) Skin: Negative: Rash, Suspicious Lesions, Ulceration Extremities: Present: upper extr. pulses. Absent: edema Results 03/11/22 09:35 03/11/22 09:35 Cardiac Enzymes 03/10/22 03/11/22 03/11/22 Range/Units 23:33 09:35 09:35 AST 64 H 89 H (5-40) units/L CK-MB (CK-2) 4.6 H (0.0-4.0) ng/mL Coagulation 03/10/22 03/11/22 03/11/22 Range/Units 23:33 09:35 09:35 PT 16.9 H 17.5 H (12.2-14.9) Sec. INR 1.20 H 1.25 H (0.87-1.13) APTT 31.4 33.2 (24.2-36.6) Sec. CBC 03/10/22 03/11/22 Range/Units 23:33 09:35 WBC 6.8 7.5 (4.5-11.0) K/mm3 RBC 4.55 4.26 (3.65-5.03) M/mm3 Hgb 14.1 13.3 (11.8-15.2) gm/dl Hct 43.5 40.9 (35.5-45.6) % Plt Count 157 157 (140-440) K/mm3 Lymph # (Auto) 1.1 L 0.9 L (1.2-5.4) K/mm3 [place] # (Auto) 0.6 0.5 (0.0-0.8) K/mm3 Eos # (Auto) 0.0 0.0 (0.0-0.4) K/mm3 Baso # (Auto) 0.0 0.0 (0.0-0.1) K/mm3 Comprehensive Metabolic Panel 03/10/22 03/11/22 Range/Units 23:33 09:35 Sodium 136 L 131 L (137-145) mmol/L Potassium 4.6 4.4 (3.6-5.0) mmol/L Chloride 99.8 98.5 (98-107) mmol/L Carbon Dioxide 23 18 L (22-30) mmol/L BUN 22 H 22 H (9-20) mg/dL Creatinine 0.9 0.8 (0.8-1.3) mg/dL Glucose 107 H 173 H (75-100) mg/dL Calcium 9.0 8.4 (8.4-10.2) mg/dL Direct Bilirubin 0.6 H (0-0.2) mg/dL Indirect Bilirubin 1.2 mg/dL AST 64 H 89 H (5-40) units/L ALT 103 H 137 H (7-56) units/L Alkaline Phosphatase 73 67 (35-129) units/L Total Protein 6.8 6.5 (6.3-8.2) g/dL Albumin 3.9 3.9 (3.9-5) g/dL - Imaging and Cardiology Echo: pending, report reviewed EKG interpretations - Telemetry EKG Rhythm: Atrial Fibrillation - EKG Supraventricular dysrhythmia: atrial fibrillation Assessment and Plan Patient 72-year-old male with a past medical history of A. fib, HFrEF, and cardiomyopathy, who presents to the ED with a complaint of shortness of breath, palpitations, abdominal pain, and malaise x9 days. A. fib with RVR Chronic HFrEF Nonischemic cardiomyopathy Abdominal pain Nausea/vomiting Medical noncompliance Echo 08/07/2019-EF 20 to 25%. Left atrium mildly dilated. Right ventricle is moderately dilated. Right ventricle systolic function is moderately reduced. Right atrium is moderately dilated. Mild to moderate aortic regurgitation. Moderate mitral regurgitation. Moderate tricuspid regurgitation. Lexiscan MPI stress test 08/09/2019-no evidence of significant degree of ischemia or prior infarction Plan: Initial A. fib with RVR rate 158 no acute ischemic change Repeat EKG shows a flutter 90s nonspecific T abnormality. No acute ischemic changes. Troponins negative x2. Patient denies chest pain. AMI ruled out BNP noted to be elevated however patient appears euvolemic on exam. Echo pending Telemetry reviewed patient remains in A. fib 70s to 80s Will continue IV amiodarone today and consider transitioning to p.o. tomorrow. Close monitoring LFTs Agree with atorvastatin 40 mg p.o. nightly, and metoprolol 50 mg p.o. 3 times daily, lisinopril 5 mg p.o. daily Patient anticoagulated on heparin drip CT abdomen/pelvis pending. Will defer to primary team for management of epigastric pain Patient in conjunction with Dr. Fields who agrees with plan of care 30 minutes of critical care time spent care coordination patient
[2022-03-11] MEDS ORDERED: WARFARIN 2.5 MG TAB PO SCH (17:00)
--- NOTE | 2022-03-11 17:10 | Electrocardiograph Report ---
[facility] Test Date: 2022-03-11 Test Time: 07:09:25 Pat Name: BONNIE STARR Department: Room: A255 1 Gender: M Sock Turner: GÓMEZ : 1950 Requested By: TASHA GALVIN Order Number: [id number] Reading MD: Trell Garcia Measurements Intervals [place] Rate: 110 P: VT: QRS: -44 QRSD: 95 T: QT: 376 QTc: 509 Interpretive Statements ATRIAL FIBRILLATION Consider old anterior infarct Prolonged QT interval Compared to ECG 03/10/2022 22:32:22 Atrial fibrillation rate is better controlled Electronically Signed On 03-11-2022 17:10:25 EDT by Trell Garcia
--- NOTE | 2022-03-11 17:11 | Electrocardiograph Report ---
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
--- NOTE | 2022-03-11 20:20 | Gastroenterology Consultation ---
History of Present Illness - Reason for Consult Consult date: 03/11/22 abdominal pain, hematemesis Requesting physician: JAVIER CLIFTON - History of Present Illness This is a 72-year-old male with history of A. fib, heart failure with depressed EF, cardiomyopathy admitted overnight for evaluation of chest pain, shortness of breath and abdominal pain. History obtained with appeals court associate justice. Patient was admitted to ICU for A. fib with RVR and hypotension. Patient was started on heparin drip for A. fib. GI consulted for evaluation for epigastric pain and hematemesis. Patient reports having epigastric pain worse with eating and nausea vomiting. Noted to have several episodes of vomiting yesterday and this morning. This afternoon emesis became more fresh red blood. Patient denies any blood in his stool or black tarry stool. Patient currently on IV amiodarone and A. fib rate controlled at this time. Work-up so far with CT angio abdomen pelvis showing abdominal aorta aneurysm but no signs of bowel ischemia. Although the CT was noted to be suboptimal exam. Patient denies any prior history of liver disease, GI bleed. No prior EGD or colonoscopy. Denies any recent NSAID use. Medication list reviewed. Past History Past Medical History: atrial fib, heart failure, hypertension, other (Hernia) Past Surgical History: No surgical history Social history: no significant social history Family history: hypertension Medications and Allergies Allergies Allergy/AdvReac Type Severity Reaction Status Date / Time No Known Allergies Allergy Unverified 08/06/19 11:39 Home Medications Medication Instructions Recorded Confirmed Last Taken Type Lisinopril [Zestril] 5 mg PO DAILY #90 tablet 08/09/19 Unknown Rx Metoprolol [Lopressor TAB] 50 mg PO TID #90 tablet 08/09/19 Unknown Rx Sennosides/Docusate Sodium [Senna 1 each PO HS PRN #30 tablet 08/09/19 Unknown Rx Plus 8.6-50 mg Tablet] Warfarin [Coumadin] 2.5 mg PO DAILY@1700 #30 tablet 08/09/19 Unknown Rx polyethylene glycoL 3350 [Miralax 17 gm PO QDAY PRN #30 packet 08/09/19 Unknown Rx 3350] Active Meds: Active Medications Acetaminophen (Acetaminophen 325 Mg Tab) 650 mg PO Q6H PRN PRN Reason: Pain, Mild (1-3) Aspirin (Aspirin Ec 325 Mg Tab) 325 mg PO QDAY [facility] Atorvastatin Calcium (Atorvastatin 40 Mg Tab) 40 mg PO QHS [facility] Heparin Sodium (Porcine) (Heparin Prn Bolus(Standard Intensity Drip)) 3,000 unit 40 unit/kg (3000 unit) IV Q6H PRN PRN Reason: For Heparin Anti-Xa < 0.1 AMIODARONE HCL 450 mg/ (Dextrose) 250 mls @ 33.333 mls/hr IV DIRECT RIMA; Protocol Last Admin: 03/11/22 08:30 Dose: 0.5 mg/min, 16.667 mls/hr Heparin Sodium/Sodium Chloride (Heparin/ 0.45% Nacl-25,000 Unit/250 Ml) 25,000 unit in 250 mls @ 14.58 mls/hr IV TITR RIMA; Protocol Last Titration: 03/11/22 14:50 Dose: 18 units/kg/hr, 14.58 mls/hr Lisinopril (Lisinopril 5 Mg Tab) 5 mg PO DAILY [facility] Metoprolol Tartrate (Metoprolol Tartrate 50 Mg Tab) 50 mg PO TID [facility] Last Admin: 03/11/22 14:50 Dose: 50 mg Morphine Sulfate (Morphine 4 Mg/1 Ml Inj) 2 mg IV Q5MIN PRN PRN Reason: Chest Pain unrelieved by NTG Last Admin: 03/11/22 09:04 Dose: 2 mg Nitroglycerin (Nitroglycerin 0.4 Mg Tab Subl) 0.4 mg SL Q5M PRN PRN Reason: Chest Pain Last Admin: 03/11/22 09:45 Dose: 0.4 mg Ondansetron HCl (Ondansetron 4 Mg/2 Ml Inj) 4 mg IV Q4H PRN PRN Reason: Nausea And Vomiting Last Admin: 03/11/22 17:20 Dose: 4 mg Pantoprazole Sodium (Pantoprazole 40 Mg Inj) 40 mg IV BID [facility] Polyethylene Glycol (Polyethylene Glycol 3350 17 Gm Powder) 17 gm PO QDAY PRN PRN Reason: Constipation Senna/Docusate Sodium (Sennosides/Docusate Sodium 8.6/50 Mg Tab) 1 tab PO HS PRN PRN Reason: Constipation Sodium Chloride (Sodium Chloride 0.9% 10 Ml Flush Syringe) 10 ml IV PRN PRN PRN Reason: LINE FLUSH Tramadol HCl (Tramadol 50 Mg Tab) 50 mg PO Q6H PRN PRN Reason: Pain, Moderate (4-6) Review of Systems - Review of Systems All systems: negative Constitutional: no weight loss, no weight gain, no fever, no chills Cardiovascular: chest pain, palpitations Respiratory: shortness of breath Gastrointestinal: abdominal pain, nausea, vomiting, no BRBPR, no melena, no hematochezia Neurological: weakness Psychiatric: no anxiety Hematologic/Lymphatic: no easy bruising Allergic/Immunologic: no wheezing Exam - Constitutional Vital Signs: Temp Pulse Resp BP Pulse Ox 97.9 F 80 16 100/76 99 03/11/22 16:36 03/11/22 18:00 03/11/22 18:00 03/11/22 18:00 03/11/22 18:00 General appearance: no acute distress - EENT Eyes: EOM intact ENT: hearing intact - Neck Neck: supple - Respiratory Respiratory effort: normal - Cardiovascular Rhythm: irregularly irregular Heart Sounds: Present: S1 & S2 - Gastrointestinal General gastrointestinal: Present: soft, non-tender, non-distended - Integumentary Integumentary: Present: clear, warm - Neurologic Neurological: alert and oriented x3 - Psychiatric Psychiatric: appropriate mood/affect - Labs CBC & Chem 7: 03/11/22 09:35 03/11/22 09:35 Lab Results: Laboratory Results - last 24 hr 03/10/22 03/10/22 03/10/22 23:33 23:33 23:33 WBC 6.8 RBC 4.55 Hgb 14.1 Hct 43.5 MCV 96 H MCH 31 MCHC 32 RDW 14.1 Plt Count 157 Lymph % (Auto) 16.6 [place]er % (Auto) 9.0 H Eos % (Auto) 0.5 Baso % (Auto) 0.5 Lymph # (Auto) 1.1 L [place] # (Auto) 0.6 Eos # (Auto) 0.0 Baso # (Auto) 0.0 Seg Neutrophils % 73.4 H Seg Neutrophils # 5.0 PT 16.9 H INR 1.20 H APTT 31.4 Sodium 136 L Potassium 4.6 Chloride 99.8 Carbon Dioxide 23 Anion Gap 18 BUN 22 H Creatinine 0.9 Estimated GFR > 60 BUN/Creatinine Ratio 24 Glucose 107 H POC Glucose Calcium 9.0 Total Bilirubin 1.70 H Direct Bilirubin Indirect Bilirubin AST 64 H ALT 103 H Alkaline Phosphatase 73 Total Creatine Kinase CK-MB (CK-2) CK-MB (CK-2) Rel Index Troponin T < 0.010 NT-Pro-B Natriuret Pep Total Protein 6.8 Albumin 3.9 Albumin/Globulin Ratio 1.3 03/10/22 03/11/22 03/11/22 23:33 09:35 09:35 WBC 7.5 RBC 4.26 Hgb 13.3 Hct 40.9 MCV 96 H MCH 31 MCHC 33 RDW 14.3 Plt Count 157 Lymph % (Auto) 12.6 L [place] % (Auto) 7.2 Eos % (Auto) 0.1 Baso % (Auto) 0.4 Lymph # (Auto) 0.9 L [place] # (Auto) 0.5 Eos # (Auto) 0.0 Baso # (Auto) 0.0 Seg Neutrophils % 79.7 H Seg Neutrophils # 6.0 PT INR APTT Sodium 131 L Potassium 4.4 Chloride 98.5 Carbon Dioxide 18 L Anion Gap 19 BUN 22 H Creatinine 0.8 Estimated GFR > 60 BUN/Creatinine Ratio 28 Glucose 173 H POC Glucose Calcium 8.4 Total Bilirubin 1.80 H Direct Bilirubin 0.6 H Indirect Bilirubin 1.2 AST 89 H ALT 137 H Alkaline Phosphatase 67 Total Creatine Kinase CK-MB (CK-2) CK-MB (CK-2) Rel Index Troponin T NT-Pro-B Natriuret Pep 9822 H Total Protein 6.5 Albumin 3.9 Albumin/Globulin Ratio 1.5 03/11/22 03/11/22 03/11/22 09:35 09:35 09:35 WBC RBC Hgb Hct MCV MCH MCHC RDW Plt Count Lymph % (Auto) [place] % (Auto) Eos % (Auto) Baso % (Auto) Lymph # (Auto) [place]er # (Auto) Eos # (Auto) Baso # (Auto) Seg Neutrophils % Seg Neutrophils # PT 17.5 H INR 1.25 H APTT 33.2 Sodium Potassium Chloride Carbon Dioxide Anion Gap BUN Creatinine Estimated GFR BUN/Creatinine Ratio Glucose POC Glucose Calcium Total Bilirubin Direct Bilirubin Indirect Bilirubin AST ALT Alkaline Phosphatase Total Creatine Kinase 117 CK-MB (CK-2) 4.6 H CK-MB (CK-2) Rel Index 3.9 Troponin T < 0.010 NT-Pro-B Natriuret Pep Total Protein Albumin Albumin/Globulin Ratio 03/11/22 03/11/22 12:20 16:10 WBC RBC Hgb Hct MCV MCH MCHC RDW Plt Count Lymph % (Auto) [place] % (Auto) Eos % (Auto) Baso % (Auto) Lymph # (Auto) [place] # (Auto) Eos # (Auto) Baso # (Auto) Seg Neutrophils % Seg Neutrophils # PT INR APTT Sodium Potassium Chloride Carbon Dioxide Anion Gap BUN Creatinine Estimated GFR BUN/Creatinine Ratio Glucose POC Glucose 151 H 165 H Calcium Total Bilirubin Direct Bilirubin Indirect Bilirubin AST ALT Alkaline Phosphatase Total Creatine Kinase CK-MB (CK-2) CK-MB (CK-2) Rel Index Troponin T NT-Pro-B Natriuret Pep Total Protein Albumin Albumin/Globulin Ratio - Imaging CT Scan: report reviewed Assessment and Plan # Epigastric pain # Hematemesis -New onset of hematemesis today. -Remains hemodynamically stable. -Hemoglobin stable this morning but pending repeat hemoglobin this afternoon. -Concern for upper GI bleed source differential including peptic ulcer disease, gastritis, esophagitis, Melania-Corrales tears. rec: -Continue to monitor hemoglobin serially and transfuse as needed with hemoglobin goal above 7 -Continue with IV PPI 40 mg twice daily. -Monitor for signs of active GI bleed. -Hold anticoagulation if signs of overt GI bleeding persistent or drop in hemoglobin. -May need to proceed with EGD tomorrow but will need risk stratification with cardiology given significant heart failure history with a EF at 25%.
[2022-03-11] MEDS: PANTOPRAZOLE 40 MG INJ IV SCH (21:03)
[2022-03-12 00:14] LABS: Hematocrit 41.1 % (35.5-45.6); Hemoglobin 13.6 gm/dl (11.8-15.2)
[2022-03-12] MEDS: AMIODARONE HCL 450 MG in DEXTROSE 5% IN WATER 241 ML IV SCH (03:21)
[2022-03-12 05:23] LABS: Albumin 3.6 g/dL (3.9-5); Bilirubin,Direct 0.8 mg/dL (0-0.2); Calcium 8.5 mg/dL (8.4-10.2)
[2022-03-12] MEDS ORDERED: DEXTROSE 50% IN WATER (25GM) 50 ML SYRINGE IV ONE (05:54)
[2022-03-12] MEDS ORDERED: PROMETHAZINE 12.5 MG RECT SUPP PR PRN (07:54)
--- NOTE | 2022-03-12 09:26 | Ultrasound Report ---
ULTRASOUND ABDOMEN, COMPLETE INDICATION / CLINICAL INFORMATION: elevated LFTs. COMPARISON: CTA abdomen pelvis 03/11/2022 FINDINGS: PANCREAS: No significant abnormality. ABDOMINAL AORTA: The known infrarenal abdominal aortic aneurysm is not visualized on this study. IVC: No significant abnormality. LIVER: The liver is mildly heterogeneous in echogenicity, which can be seen in the setting of chronic hepatocellular disease. There is a 1.2 x 0.8 cm hypoechoic lesion within the left lobe liver. Multip le additional hypoechoic lesions are seen within the right lobe of the liver, largest which measures 1.8 x 1.5 cm and contains dependent hyperechoic material as seen on image 22. Normal hepatopedal bloo d flow in the main portal vein. GALLBLADDER: Mild gallbladder wall thickening measuring up to 4 mm. No cholelithiasis. BILE DUCTS: No significant abnormality. Common bile duct measures 3 mm. KIDNEYS: Right: No significant abnormality. Left: No significant abnormality. SPLEEN: No significant abnormality. FREE FLUID: None. ADDITIONAL FINDINGS: None. IMPRESSION: 1. The liver is mildly heterogeneous in echogenicity, which can be seen in the setting of chronic hep atocellular disease. 2. There are multiple hypoechoic lesions throughout the liver. Further evaluation with dedicated [facility] liver mass CT or MRI could be performed for further evaluation. 3. Mild gallbladder wall thickening without cholelithiasis. Gallbladder wall thickening may be relate d to hepatic dysfunction. Signer Name: Jarrett Leal MD Signed: 03/12/2022 9:22 AM Workstation Name: [employer]
[2022-03-12] MEDS ORDERED: DEXTROSE 50% IN WATER (25GM) 50 ML SYRINGE IV PRN (09:30)
[2022-03-12] MEDS: PANTOPRAZOLE 40 MG INJ IV SCH ×2 (09:36→21:17)
[2022-03-12] MEDS: METOPROLOL TARTRATE 50 MG TAB PO SCH ×3 (09:36→21:14)
[2022-03-12] MEDS ORDERED: ASPIRIN EC 325 MG TAB PO SCH (10:00)
[2022-03-12] MEDS ORDERED: LISINOPRIL 5 MG TAB PO SCH (10:00)
--- NOTE | 2022-03-12 10:26 | Progress Note ---
Assessment and Plan 72 y/o male with afib with RVR, subtherapeutic INR and now right epigastric pain 03/12/22: Hopeful patient will get scoped soon. Likely needs some form of biopsy but this depending on what they see on EGD. NPO for now. No further anticoagulation. BID PPI. H/H has been stable. Guarded to poor prognosis given most recent findings. 1. KUB unremarkable 2. Suggest CTA of abdomen pelvis given prolonged history of afib and inadequate anticoagulation given subtherapeutic INR 3. Rate appears controlled with amio will defer to cards 4. Agree with heparin drip 5. IF CTA is negative, consider GI consult. Patient could have PUD 6. Abdominal pain could also be his anginal equivalent as well. Still would rule out cardiovascular causes as well. Subjective Date of service: 03/12/22 Interval history: CTA was not conclusive secondary to timing of bolus and amount. Ultrasound was very helpful and unfortunately has significant findings that are concerning. The patient also had hematemesis last night. Seen by GI. Wanting to scope but awaiting cardiac assessment. Objective - Constitutional Vitals: Vital Signs - 12hr 03/11/22 03/11/22 03/11/22 23:00 23:20 23:22 Temperature Pulse Rate 85 74 Respiratory 21 20 Rate Blood Pressure 94/71 94/71 O2 Sat by Pulse 97 99 98 Oximetry 03/12/22 03/12/22 03/12/22 00:00 01:00 02:00 Temperature Pulse Rate 78 75 77 Respiratory 31 H 14 19 Rate Blood Pressure 91/56 93/61 98/66 O2 Sat by Pulse 99 99 97 Oximetry 03/12/22 03/12/22 03/12/22 02:49 03:00 04:00 Temperature 98.8 F Pulse Rate 80 85 87 Respiratory 25 H 18 Rate Blood Pressure 111/75 111/76 O2 Sat by Pulse 96 100 Oximetry 03/12/22 03/12/22 03/12/22 05:00 05:37 06:00 Temperature Pulse Rate 82 73 88 Respiratory 18 20 Rate Blood Pressure 118/87 107/77 O2 Sat by Pulse 95 Oximetry 03/12/22 03/12/22 03/12/22 07:00 07:58 08:00 Temperature 98.9 F Pulse Rate 83 149 H Respiratory 16 25 H Rate Blood Pressure 107/77 98/73 O2 Sat by Pulse 96 98 Oximetry 03/12/22 03/12/22 09:00 09:36 Temperature Pulse Rate 94 H 94 H Respiratory 23 Rate Blood Pressure 98/73 O2 Sat by Pulse 99 Oximetry - Labs CBC & Chem 7: 03/11/22 22:59 03/12/22 04:34 Labs: Abnormal lab results 03/11/22 03/11/22 03/11/22 Range/Units 12:20 16:10 22:59 Plt Count (140-440) K/mm3 Heparin Anti-Xa Level 0.73 H (0.3-0.7) U.I./ml Sodium (137-145) mmol/L Carbon Dioxide (22-30) mmol/L BUN (9-20) mg/dL Glucose (75-100) mg/dL POC Glucose 151 H 165 H (70-105) mg/dL Total Bilirubin (0.1-1.2) mg/dL Direct Bilirubin (0-0.2) mg/dL AST (5-40) units/L ALT (7-56) units/L Total Protein (6.3-8.2) g/dL Albumin (3.9-5) g/dL 03/11/22 03/11/22 03/12/22 Range/Units 22:59 23:37 04:34 Plt Count 139 L (140-440) K/mm3 Heparin Anti-Xa Level (0.3-0.7) U.I./ml Sodium 135 L (137-145) mmol/L Carbon Dioxide 20 L (22-30) mmol/L BUN 35 H (9-20) mg/dL Glucose 122 H (75-100) mg/dL POC Glucose 146 H (70-105) mg/dL Total Bilirubin 1.80 H (0.1-1.2) mg/dL Direct Bilirubin 0.8 H (0-0.2) mg/dL AST 567 H (5-40) units/L ALT 538 H (7-56) units/L Total Protein 6.0 L (6.3-8.2) g/dL Albumin 3.6 L (3.9-5) g/dL 03/12/22 03/12/22 Range/Units 05:49 06:31 Plt Count (140-440) K/mm3 Heparin Anti-Xa Level (0.3-0.7) U.I./ml Sodium (137-145) mmol/L Carbon Dioxide (22-30) mmol/L BUN (9-20) mg/dL Glucose (75-100) mg/dL POC Glucose 124 H 193 H (70-105) mg/dL Total Bilirubin (0.1-1.2) mg/dL Direct Bilirubin (0-0.2) mg/dL AST (5-40) units/L ALT (7-56) units/L Total Protein (6.3-8.2) g/dL Albumin (3.9-5) g/dL Medications & Allergies - Medications Allergies/Adverse Reactions: Allergies No Known Allergies Allergy (Unverified 08/06/19 11:39) Home Medications: Home Medications Medication Instructions Recorded Confirmed Last Taken Type Lisinopril [Zestril] 5 mg PO DAILY #90 tablet 08/09/19 Unknown Rx Metoprolol [Lopressor TAB] 50 mg PO TID #90 tablet 08/09/19 Unknown Rx Sennosides/Docusate Sodium [Senna 1 each PO HS PRN #30 tablet 08/09/19 Unknown Rx Plus 8.6-50 mg Tablet] Warfarin [Coumadin] 2.5 mg PO DAILY@1700 #30 tablet 08/09/19 Unknown Rx polyethylene glycoL 3350 [Miralax 17 gm PO QDAY PRN #30 packet 08/09/19 Unknown Rx 3350] Active Medications: Generic Name Dose Route Start Last Admin Trade Name Freq PRN Reason Stop Dose Admin Dextrose 25 ml 03/12/22 09:30 Dextrose 50% In Water (25gm) 50 Ml Syringe IV Q30MIN PRN Hypoglycemia Protocol Lisinopril 5 mg 03/14/22 10:00 Lisinopril 5 Mg Tab PO DAILY RIMA Metoprolol Tartrate 50 mg 03/11/22 08:00 03/12/22 09:36 Metoprolol Tartrate 50 Mg Tab PO Not Given TID RIMA Morphine Sulfate 2 mg 03/11/22 04:20 03/11/22 09:04 Morphine 4 Mg/1 Ml Inj IV 2 mg Q5MIN PRN Administration Chest Pain unrelieved by NTG Nitroglycerin 0.4 mg 03/11/22 04:20 03/11/22 09:45 Nitroglycerin 0.4 Mg Tab Subl SL 0.4 mg Q5M PRN Administration Chest Pain Ondansetron HCl 4 mg 03/11/22 06:43 03/11/22 22:40 Ondansetron 4 Mg/2 Ml Inj IV 4 mg Q4H PRN Administration Nausea And Vomiting Pantoprazole Sodium 40 mg 03/11/22 22:00 03/12/22 09:36 Pantoprazole 40 Mg Inj IV 40 mg BID RIMA Administration Polyethylene Glycol 17 gm 03/11/22 04:23 Polyethylene Glycol 3350 17 Gm Powder PO QDAY PRN Constipation Promethazine HCl 12.5 mg 03/12/22 07:54 Promethazine 12.5 Mg Rect Supp PA Q6H PRN Nausea And Vomiting Senna/Docusate Sodium 1 tab 03/11/22 04:23 Sennosides/Docusate Sodium 8.6/50 Mg Tab PO HS PRN Constipation Sodium Chloride 10 ml 03/11/22 04:20 03/12/22 09:37 Sodium Chloride 0.9% 10 Ml Flush Syringe IV 10 ml PRN PRN Administration LINE FLUSH Tramadol HCl 50 mg 03/11/22 04:20 Tramadol 50 Mg Tab PO Q6H PRN Pain, Moderate (4-6) HEART Score - HEART Score Troponin: Troponin T < 0.010 ng/mL (0.00-0.029) 03/11/22 22:59
--- NOTE | 2022-03-12 11:33 | Progress Note ---
Assessment and Plan Assessment and plan: This is a 72-year-old male with known past medical history of HFrEF, nonischemic cardiomyopathy, HTN, paroxysmal atrial fibrilation, was on warfarin at home admitted for CP and atrial fibrillation with RVR Hospital Course to Date: 03/11: still c/o of severe CP/epigatric pain accompanied with nausea/vomiting, treated per CP protocol. Troponin is negative X2, repeat EKG shows Afib with no significant ST. Patient remains on the Amiodarone gtt, still in Afib but rate control this am, VSS. Orders placed for CTA abd/pelvis to r/o ischemia. Heparin gtt initiated per protocol. Patient is up to 4L NC this am, Echo from 2019 reviewed, LVEF 20 to 25%. X1 dose of IV lasix this am. Transaminitis also noted, awaiting CTA result. On amiodarone gtt, will continue to trend LFTs for now. Cardiology and CCM also following. Plan of care discussed with patient using the manager development line, all questions and concerns were addressed at this time. 03/12: Bloody emesis overnight, heparin held. H&H remains stable. Patient is now NPO, PPI switched to IV protonix BID, GI consulted. Worsen transaminitis this am, amiodarone, statin, and tylenol held. Patient remains in Afib but in control rate. Abd US noted, hepacellular disease and Liver lession noted, MRCP pending. Plan for possible EGD today per GI. D/w Cardio, patient is high risk, however, okay for EGD from their standpoint. Assessment and Plan #Atrial Fibrillation with RVR #Heart Failure with Reduced EF #Nonischemic cardiomyopathy #Hypertension - Remains in Afib, rate control. On amiodarone gtt - C/o CP/epigastric pain. troponin negX2, EKG with no ST changes - Cardiology consulted, appreciate recommendations - Continue ASA, metoprolol, lisinopril, and statin - 2019 echo reviewed, LVEF 20-25% - s/p X1 dose of 20mg IV lasix - repeat echo pending - Continue CP protocol, trend troponin - Continue blood pressure monitor per protocol - Maintain MAP above 65 - Strict I&Os, daily weight - CCM is also following - Heparin gtt- held due to bloody emesis #Acute Hypoxic Respiratory Failure - most likely secondary to above - S/p X1 dose 20mg IV lasix - Down to 2L NC - Continue O2 supplementation and wean as tolerated - Continue SPO2 monitoring for SPO2 goal above 92% - [facility] is following, appreciate recommendations #Transaminitis #Bloody Emesis #Epigastric Pain #Nausea/Vomiting - Presented with mildly elevated LFTs - Given h/o of afib and subtheurapeutic INR c/o for possible bowel ischemia - CTA adb/pelvis unremarkable - US ABD concerning for hepacellular disease and Liver lession - MRCP pending - GI consulted, appreciate recommendations - Plan for EGD today - Continue PRN analgesia for pain control - Continue PRN antiemetic for N/V - Continue to trend LFTs #Nicotine Dependence - Smoking cessation education provided using manager development line, patient verbalized understanding - Nicotine as needed if patient is experiencing any urges #GI/DVT Prophylaxis - PPI- protonix - Heparin gtt- on hold - SCDs to bilateral lower extremities while in bed #Advance Care Planning - Disease education data, care plan, diagnoses, and prognosis were discussed with patient at the bedside using the manager development line. Patient is a FULL code. Patient acknowledged understanding and agreed with current care plan. The high probability of a clinically significant, sudden or life threatening deterioration of the [multiple] system(s) required my full and direct attention, intervention and personal management. The aggregate critical care time was [60] minutes. This time is in addition to time spent performing reported procedures but includes the following: [x] Data Review and interpretation [x] Patient assessment and monitoring of vital signs [x] Documentation [x] Medication orders and management Disposition Plan: ICU Total Time Spent with Patient (Minutes): 60 History Interval history: Patient seen and examined at the bedside. Stable on 2L NC, denied any pain nor any discomfort at this time. Bloody emesis overnight, heparin gtt held. H&H stable. Patient remains in Afib, in control rate, VSS. Hospitalist Physical - Constitutional Vitals: Temp Pulse Resp BP Pulse Ox 98.9 F 81 18 97/64 99 03/12/22 07:58 03/12/22 10:00 03/12/22 10:00 03/12/22 10:00 03/12/22 10:00 General appearance: Present: no acute distress, well-nourished - EENT Eyes: Present: PERRL, EOM intact ENT: hearing intact - Neck Neck: Present: normal ROM - Respiratory Respiratory effort: normal Respiratory: bilateral: diminished - Cardiovascular Rhythm: irregularly irregular Heart Sounds: Present: S1 & S2 - Extremities Extremities: no ischemia, pulses intact, pulses symmetrical Peripheral Pulses: within normal limits - Abdominal General gastrointestinal: soft, non-distended, normal bowel sounds - Integumentary Integumentary: Present: clear, warm, dry - Psychiatric Psychiatric: appropriate mood/affect, cooperative - Neurologic Neurologic: CNII-XII intact, moves all extremities - Allied Health Allied health notes reviewed: nursing, case management HEART Score - HEART Score Troponin: Troponin T < 0.010 ng/mL (0.00-0.029) 03/11/22 22:59 Results - Labs CBC & Chem 7: 03/13/22 04:49 03/13/22 04:49 Labs: Laboratory Last Values WBC 7.5 K/mm3 (4.5-11.0) 03/11/22 09:35 RBC 4.26 M/mm3 (3.65-5.03) 03/11/22 09:35 Hgb 13.6 gm/dl (11.8-15.2) 03/11/22 22:59 Hct 41.1 % (35.5-45.6) 03/11/22 22:59 MCV 96 fl (84-94) H 03/11/22 09:35 MCH 31 pg (28-32) 03/11/22 09:35 MCHC 33 % (32-34) 03/11/22 09:35 RDW 14.3 % (13.2-15.2) 03/11/22 09:35 Plt Count 139 K/mm3 (140-440) L 03/11/22 22:59 Lymph % (Auto) 12.6 % (13.4-35.0) L 03/11/22 09:35 Payne % (Auto) 7.2 % (0.0-7.3) 03/11/22 09:35 Eos % (Auto) 0.1 % (0.0-4.3) 03/11/22 09:35 Baso % (Auto) 0.4 % (0.0-1.8) 03/11/22 09:35 Lymph # (Auto) 0.9 K/mm3 (1.2-5.4) L 03/11/22 09:35 Payne # (Auto) 0.5 K/mm3 (0.0-0.8) 03/11/22 09:35 Eos # (Auto) 0.0 K/mm3 (0.0-0.4) 03/11/22 09:35 Baso # (Auto) 0.0 K/mm3 (0.0-0.1) 03/11/22 09:35 Seg Neutrophils % 79.7 % (40.0-70.0) H 03/11/22 09:35 Seg Neutrophils # 6.0 K/mm3 (1.8-7.7) 03/11/22 09:35 PT 17.5 Sec. (12.2-14.9) H 03/11/22 09:35 INR 1.25 (0.87-1.13) H 03/11/22 09:35 APTT 33.2 Sec. (24.2-36.6) 03/11/22 09:35 Heparin Anti-Xa Level 0.73 U.I./ml (0.3-0.7) H 03/11/22 22:59 Sodium 135 mmol/L (137-145) L 03/12/22 04:34 Potassium 4.7 mmol/L (3.6-5.0) 03/12/22 04:34 Chloride 99.9 mmol/L (98-107) 03/12/22 04:34 Carbon Dioxide 20 mmol/L (22-30) L 03/12/22 04:34 Anion Gap 20 mmol/L 03/12/22 04:34 BUN 35 mg/dL (9-20) H 03/12/22 04:34 Creatinine 1.2 mg/dL (0.8-1.3) 03/12/22 04:34 Estimated GFR 59 ml/min 03/12/22 04:34 BUN/Creatinine Ratio 29 % 03/12/22 04:34 Glucose 122 mg/dL (75-100) H 03/12/22 04:34 POC Glucose 193 mg/dL (70-105) H 03/12/22 06:31 Calcium 8.5 mg/dL (8.4-10.2) 03/12/22 04:34 Phosphorus 4.00 mg/dL (2.5-4.5) 03/12/22 04:34 Magnesium 2.10 mg/dL (1.7-2.3) 03/12/22 04:34 Total Bilirubin 1.80 mg/dL (0.1-1.2) H 03/12/22 04:34 Direct Bilirubin 0.8 mg/dL (0-0.2) H 03/12/22 04:34 Indirect Bilirubin 1.0 mg/dL 03/12/22 04:34 AST 567 units/L (5-40) H 03/12/22 04:34 ALT 538 units/L (7-56) H 03/12/22 04:34 Alkaline Phosphatase 62 units/L (35-129) 03/12/22 04:34 Total Creatine Kinase 117 units/L (55-170) 03/11/22 09:35 CK-MB (CK-2) 4.6 ng/mL (0.0-4.0) H 03/11/22 09:35 CK-MB (CK-2) Rel Index 3.9 (0-4) 03/11/22 09:35 Troponin T < 0.010 ng/mL (0.00-0.029) 03/11/22 22:59 NT-Pro-B Natriuret Pep 9822 pg/mL (0-900) H 03/10/22 23:33 Total Protein 6.0 g/dL (6.3-8.2) L 03/12/22 04:34 Albumin 3.6 g/dL (3.9-5) L 03/12/22 04:34 Albumin/Globulin Ratio 1.5 % 03/12/22 04:34 Amylase 39 units/L (27-131) 03/12/22 04:34 Lipase 47 units/L (13-60) 03/12/22 04:34 Blood Type A NEGATIVE 03/11/22 22:59 Antibody Screen Negative 03/11/22 22:59 Victor/IV: Voiding Method Condom Catheter Active Medications - Current Medications Current Medications: Generic Name Dose Route Start Last Admin Trade Name Freq PRN Reason Stop Dose Admin Dextrose 25 ml 03/12/22 09:30 Dextrose 50% In Water (25gm) 50 Ml Syringe IV Q30MIN PRN Hypoglycemia Protocol Lisinopril 5 mg 03/14/22 10:00 Lisinopril 5 Mg Tab PO DAILY RIMA Metoprolol Tartrate 50 mg 03/11/22 08:00 03/12/22 09:36 Metoprolol Tartrate 50 Mg Tab PO Not Given TID RIMA Morphine Sulfate 2 mg 03/11/22 04:20 03/11/22 09:04 Morphine 4 Mg/1 Ml Inj IV 2 mg Q5MIN PRN Administration Chest Pain unrelieved by NTG Nitroglycerin 0.4 mg 03/11/22 04:20 03/11/22 09:45 Nitroglycerin 0.4 Mg Tab Subl SL 0.4 mg Q5M PRN Administration Chest Pain Ondansetron HCl 4 mg 03/11/22 06:43 03/11/22 22:40 Ondansetron 4 Mg/2 Ml Inj IV 4 mg Q4H PRN Administration Nausea And Vomiting Pantoprazole Sodium 40 mg 03/11/22 22:00 03/12/22 09:36 Pantoprazole 40 Mg Inj IV 40 mg BID RIMA Administration Polyethylene Glycol 17 gm 03/11/22 04:23 Polyethylene Glycol 3350 17 Gm Powder PO QDAY PRN Constipation Promethazine HCl 12.5 mg 03/12/22 07:54 Promethazine 12.5 Mg Rect Supp WI Q6H PRN Nausea And Vomiting Senna/Docusate Sodium 1 tab 03/11/22 04:23 Sennosides/Docusate Sodium 8.6/50 Mg Tab PO HS PRN Constipation Sodium Chloride 10 ml 03/11/22 04:20 03/12/22 09:37 Sodium Chloride 0.9% 10 Ml Flush Syringe IV 10 ml PRN PRN Administration LINE FLUSH Tramadol HCl 50 mg 03/11/22 04:20 Tramadol 50 Mg Tab PO Q6H PRN Pain, Moderate (4-6)
[2022-03-12 13:13] LABS: Hematocrit 40.1 % (35.5-45.6); Hemoglobin 13.3 gm/dl (11.8-15.2); Mean Corpuscular HGB Conc 33 % (32-34); Mean Corpuscular Volume 96 fl (84-94); Platelet Count 135 K/mm3 (140-440); Red Blood Count 4.16 M/mm3 (3.65-5.03); Red Cell Distribution Width 14.6 % (13.2-15.2)
--- NOTE | 2022-03-12 13:26 | Progress Note ---
Assessment and Plan Patient 72-year-old male with a past medical history of A. fib, HFrEF, and cardiomyopathy, who presents to the ED with a complaint of shortness of breath, palpitations, abdominal pain, and malaise x9 days. A. fib RVR * Currently rate controlled metoprolol 50 mg p.o. 3 times daily * Anticoagulation discontinued due to upper GI bleed Nonischemic cardiomyopathy * Echo 08/07/2019-EF 20 to 25%. Left atrium mildly dilated. Right ventricle is moderately dilated. Right ventricle systolic function is moderately reduced. Right atrium is moderately dilated. Mild to moderate aortic regurgitation. Moderate mitral regurgitation. Moderate tricuspid regurgitation. * Lexiscan MPI stress test 08/09/2019-no evidence of significant degree of ischemia or prior infarction * GDMT as tolerated. Continue statin, beta-john paul, LAURA inhibitor. No aspirin in setting of GI bleed * Patient appears near euvolemia on physical exam Hematemesis * No further episodes of bleeding/hematemesis since heparin was discontinued. * GI is consulted for EGD. Patient represents moderate surgical risk from cardiology perspective. No cardiac contraindications to planned procedure. Chest pain * Patient is currently chest pain-free. Twelve-lead shows no acute ischemic changes. Troponins are negative x2. AMI is ruled out. Will follow Patient seen in conjunction with Dr. Fields who agrees with plan of care - Patient Problems (1) Hematemesis of unknown etiology Current Visit: Yes Status: Acute (2) Atrial fibrillation with RVR Current Visit: Yes Status: Acute (3) DVT prophylaxis Current Visit: No Status: Acute (4) Heart failure with reduced ejection fraction Current Visit: No Status: Acute (5) Nonischemic cardiomyopathy Current Visit: No Status: Chronic Subjective Date of service: 03/12/22 Interval history: Patient resting in bed, chest pain or shortness of breath overnight Telemetry shows atrial fibrillation heart rate 80s no events Objective Last Vital Signs Temp 97.8 F 03/12/22 12:55 Pulse 87 03/12/22 12:00 Resp 17 03/12/22 12:00 BP 102/77 03/12/22 12:00 Pulse Ox 98 03/12/22 12:00 - Physical Examination HEENT: Positive: PERRL Neck: Positive: trachea midline Cardiac: Positive: Regular Rate, irregularly irregular Lungs: Positive: Normal Exam Neuro: Positive: Grossly Intact Abdomen: Positive: Soft, Other (Hernia) Skin: Negative: Rash, Suspicious Lesions, Ulceration Extremities: Present: upper extr. pulses. Absent: edema - Labs and Meds Cardiac Enzymes 03/12/22 Range/Units 04:34 AST 567 H (5-40) units/L CBC 03/11/22 03/12/22 Range/Units 22:59 12:50 WBC 7.9 (4.5-11.0) K/mm3 RBC 4.16 (3.65-5.03) M/mm3 Hgb 13.6 13.3 (11.8-15.2) gm/dl Hct 41.1 40.1 (35.5-45.6) % Plt Count 139 L 135 L (140-440) K/mm3 Comprehensive Metabolic Panel 03/12/22 Range/Units 04:34 Sodium 135 L (137-145) mmol/L Potassium 4.7 (3.6-5.0) mmol/L Chloride 99.9 (98-107) mmol/L Carbon Dioxide 20 L (22-30) mmol/L BUN 35 H (9-20) mg/dL Creatinine 1.2 (0.8-1.3) mg/dL Glucose 122 H (75-100) mg/dL Calcium 8.5 (8.4-10.2) mg/dL Direct Bilirubin 0.8 H (0-0.2) mg/dL Indirect Bilirubin 1.0 mg/dL AST 567 H (5-40) units/L ALT 538 H (7-56) units/L Alkaline Phosphatase 62 (35-129) units/L Total Protein 6.0 L (6.3-8.2) g/dL Albumin 3.6 L (3.9-5) g/dL - Imaging and Cardiology Echo: pending, report reviewed
[2022-03-12] MEDS ORDERED: EPINEPHrine 1 MG/10 ML SYRINGE ONE (13:45)
[2022-03-12] MEDS ORDERED: SODIUM CHLORIDE 0.9% 1000 ML 1,000 ML ONE (13:46)
[2022-03-12] MEDS ORDERED: ONDANSETRON 4 MG/2 ML INJ ONE (13:48)
[2022-03-12] MEDS ORDERED: fentaNYL 100 MCG/2 ML INJ ONE (13:48)
[2022-03-12] MEDS ORDERED: propofoL 200 MG/20 ML VIAL IV ONE (13:48)
[2022-03-12] MEDS ORDERED: KETAMINE/STERILE WATER 50 MG/ML SYRINGE ONE (13:49)
--- NOTE | 2022-03-12 14:06 | Magnetic Resonance Report ---
MRCP INDICATION / CLINICAL INFORMATION: obstructing biliary stone. TECHNIQUE: Multiplanar, multisequence series were obtained through the abdomen. Thin collimation coronal and rad ial MRCP images. COMPARISON: Ultrasound abdomen 03/12/2022 FINDINGS: LIVER: Unremarkable MR appearance of the liver. No cirrhotic changes are appreciated. 1 cm cyst in th e anterior left hepatic lobe is noted. No suspicious liver mass on this limited exam. GALLBLADDER: No significant abnormality. BILE DUCTS: No significant abnormality. The CBD measures 4 mm. No evidence for choledocholithiasis. PANCREAS: No significant abnormality. SPLEEN: No significant abnormality. ADRENALS: No significant abnormality. RIGHT KIDNEY AND URETER: No significant abnormality. LEFT KIDNEY AND URETER: No significant abnormality. STOMACH AND VISUALIZED BOWEL: No significant abnormality. PERITONEUM: No free fluid. No free air. No fluid collection. LYMPH NODES: No significant adenopathy. AORTA and ARTERIES: Infrarenal dilatation of the aorta is partially imaged but measures up to 3.5 cm in diameter. IVC and VEINS: No significant abnormality. ADDITIONAL FINDINGS: There are small to moderate bilateral layering pleural effusions. Mild cardiomeg kimmie. SKELETAL SYSTEM: No significant abnormality. IMPRESSION: Unremarkable MRCP. No evidence for cholelithiasis, choledocholithiasis or biliary dilatation. Unremarkable MR appearance of the liver. 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 Cardiomegaly and bilateral pleural effusions consistent with CHF. Signer Name: Daniel Salas Jr, MD Signed: 03/12/2022 2:02 PM Workstation Name: [id number]
--- NOTE | 2022-03-12 14:25 | Anesthesia Consultation ---
Anesthesia Consult and Med Hx Date of service: 03/12/22 - Airway Anesthetic Teeth Evaluation: Poor (multiple missing teeth and evidence of detal decay in remaining teeth) ROM Head & Neck: Adequate Mental/Hyoid Distance: Inadequate Mallampati Class: Class II Intubation Access Assessment: Probably Good - Pre-Operative Health Status ASA Pre-Surgery Classification: ASA4 Proposed Anesthetic Plan: MAC - Cardiovascular System Hx Heart Attack/AMI: No (NICM w/ EF 20-25%) Hx Cardia Arrhythmia: Yes (A-fib, initially with RVR but now rate controlled on amiodarone gtt) Hx Pacemaker: No Hx Internal Defibrillator: No - Endocrine Hx Renal Disease: No Hx Cirrhosis: No Hx Liver Disease: Yes (transaminitis; liver lesions seen on ultrasound) Hx Insulin Dependent Diabetes: No Hx Non-Insulin Dependent Diabetes: No Hx Thyroid Disease: No - Hematic Hx Anemia: No - Additional Comments Anesthesia Medical History Comments: EGD for GI bleed.
--- NOTE | 2022-03-12 14:25 | Anesthesia Day of Surgery ---
Anesthesia Day of Surgery - Day of Surgery Patient Examined: Yes Patient H&P Reviewed: Yes Patient is NPO: Yes
[2022-03-12] MEDS ORDERED: EPINEPHrine 1 MG/10 ML SYRINGE IV ONE (14:40)
--- NOTE | 2022-03-12 15:11 | Operative Report ---
Operative Report Operative Report: Date of procedure: 03/12/2022 Procedure: Esophagogastroduodenoscopy Preprocedure diagnosis: Hematemesis Post procedure diagnosis: Multiple antral ulcers, gastritis Endoscopist: Nir Parra MD Anesthesia: Monitored anesthesia care per anesthesia department Medications: Propofol per anesthesia Estimated blood loss: 0 After careful discussion of the nature and purpose of the procedure as well as details the technique risks benefits and alternatives consent was obtained. The patient was placed in the left lateral decubitus position and medicated per anesthesia. The tip of the video endoscope was passed per orum under direct vision into the esophagus and advanced into the stomach and descending duodenum. The scope was withdrawn into the stomach and the stomach then gently insufflated with air. The antrum was normal. The stomach was further insufflated and the scope was then retroflexed and partially withdrawn. The scope was then withdrawn in the forward position. The esophagogastric junction was at 40 cm. The esophageal body was normal throughout. The procedure was was well tolerated and the patient was observed in recovery. Findings: 1. A small hiatal hernia but otherwise normal esophagus exam without any signs of esophagitis, varices. 2. Several large ulcers in the antrum and the circumferential manner. 2 of the ulcers were clean-based without any high risk stigmata. 1 ulcer on the lesser curve of the antrum was large at least 2 cm in length with small red heme in the middle. No signs of active bleeding. This ulcer was treated with injection of 1-10,000 mix of epinephrine and four-quadrant. 1 Endo Clip was placed. No signs of bleeding noted at the end of the intervention. 3. Diffuse erythematous mucosa with mucosal edema in the antrum and body. 4. Normal duodenal exam. Impressions: 1. Multiple ulcers in the antrum. No active bleeding. 1 ulcer treated as listed above. 2. A small hiatal hernia. 3. Diffuse antral and body gastritis. 4. Normal duodenal exam. Plan: 1. Keep n.p.o. with sips for meds 2. Continue with IV PPI twice daily. 3. Continue to monitor H&H and transfuse as needed. 4. Continue to hold anticoagulation. 5. In case of recurrent active bleeding signs, recommend IR consult for embolization. 6. Monitor LFTs and INR. Suspect the elevated LFTs may be due to medication induced with amiodarone. Findings of hypodense lesions of the liver noted on ultrasound however previous CTA did not show any abnormalities in the liver. 7. Will follow.
[2022-03-13 01:49] LABS: Hematocrit 36.9 % (35.5-45.6)
[2022-03-13 05:19] LABS: Hematocrit 38.2 % (35.5-45.6); Hemoglobin 12.8 gm/dl (11.8-15.2); Mean Corpuscular HGB Conc 34 % (32-34); Mean Corpuscular Volume 95 fl (84-94); Platelet Count 138 K/mm3 (140-440); Red Blood Count 4.02 M/mm3 (3.65-5.03); Red Cell Distribution Width 14.7 % (13.2-15.2)
[2022-03-13 05:35] LABS: Alanine Aminotransferase 384 units/L (7-56); Albumin 3.3 g/dL (3.9-5); BUN/Creatinine Ratio 33; Bilirubin,Direct 0.9 mg/dL (0-0.2); Blood Urea Nitrogen 26 mg/dL (9-20); Calcium 7.9 mg/dL (8.4-10.2); Hemolysis Index 5
[2022-03-13] MEDS ORDERED: MAGNESIUM SULFATE 2 GM/50 ML BAG IV SCH (08:00)
[2022-03-13] MEDS: METOPROLOL TARTRATE 50 MG TAB PO SCH (08:00)
[2022-03-13] MEDS: PANTOPRAZOLE 40 MG INJ IV SCH ×2 (09:39→21:42)
--- NOTE | 2022-03-13 11:08 | Progress Note ---
Assessment and Plan Assessment and plan: This is a 72-year-old male with known past medical history of HFrEF, nonischemic cardiomyopathy, HTN, paroxysmal atrial fibrilation, was on warfarin at home admitted for CP and atrial fibrillation with RVR Hospital Course to Date: 03/11: still c/o of severe CP/epigatric pain accompanied with nausea/vomiting, treated per CP protocol. Troponin is negative X2, repeat EKG shows Afib with no significant ST. Patient remains on the Amiodarone gtt, still in Afib but rate control this am, VSS. Orders placed for CTA abd/pelvis to r/o ischemia. Heparin gtt initiated per protocol. Patient is up to 4L NC this am, Echo from 2019 reviewed, LVEF 20 to 25%. X1 dose of IV lasix this am. Transaminitis also noted, awaiting CTA result. On amiodarone gtt, will continue to trend LFTs for now. Cardiology and CCM also following. Plan of care discussed with patient using the station cook line, all questions and concerns were addressed at this time. 03/12: Bloody emesis overnight, heparin held. H&H remains stable. Patient is now NPO, PPI switched to IV protonix BID, GI consulted. Worsen transaminitis this am, amiodarone, statin, and tylenol held. Patient remains in Afib but in control rate. Abd US noted, hepacellular disease and Liver lession noted, MRCP pending. Plan for possible EGD today per GI. D/w Cardio, patient is high risk, however, okay for EGD from their standpoint. 03/13: S/p EGD, multiple ulcers in the antrum but no active bleeding noted, X1 ulcer treated. Still coughing blood tinge sputum this am but no s/s of any active bleeding, H&H stable. GI recommendations noted. Will continue PPI and continue to trend LFTs, MRCP is unremarkable. Patient remains in Afib but in control rate. Per cardio plan for conservative management, decrease BB due to soft BP. Continue to hold AC until cleared GI. Clear liquid diet today, advance as tolerated. Patient is stable for Telemetry. Assessment and Plan #Atrial Fibrillation with RVR #Heart Failure with Reduced EF #Nonischemic cardiomyopathy #Hypertension - Remains in Afib, rate control. On amiodarone gtt - C/o CP/epigastric pain. troponin negX2, EKG with no ST changes - Cardiology consulted, appreciate recommendations - Reduce BB anad continue to hold lisinopril due to low BP - 2019 echo reviewed, LVEF 20-25% - s/p X1 dose of 20mg IV lasix - repeat echo noted, LVEF unchanged- 20-25 - Per cardio plan for conservative management - Continue blood pressure monitor per protocol - Maintain MAP above 65 - Strict I&Os, daily weight - CCM is also following - Heparin gtt- held due to bloody emesis. Continue to hold AC until cleared GI. #Acute Hypoxic Respiratory Failure - most likely secondary to above - S/p X1 dose 20mg IV lasix - Down to 2L NC - Continue O2 supplementation and wean as tolerated - Continue SPO2 monitoring for SPO2 goal above 92% - [facility] is following, appreciate recommendations #Transaminitis #Bloody Emesis #Epigastric Pain #Nausea/Vomiting - Presented with mildly elevated LFTs - CTA adb/pelvis unremarkable - US ABD concerning for hepacellular disease and Liver lession - 03/12 s/p EGD-multiple ulcers in the antrum but no active bleeding noted, X1 ulcer treated. see report for details - MRCP unremarkable - GI consulted, appreciate recommendations - continue PPI and continue to trend LFTs - Continue PRN analgesia for pain control - Continue PRN antiemetic for N/V #Nicotine Dependence - Smoking cessation education provided using station cook line, patient verbalized understanding - Nicotine as needed if patient is experiencing any urges #GI/DVT Prophylaxis - PPI- protonix - SCDs to bilateral lower extremities while in bed #Advance Care Planning - Disease education data, care plan, diagnoses, and prognosis were discussed with patient at the bedside using the station cook line. Patient is a FULL code. Patient acknowledged understanding and agreed with current care plan. The high probability of a clinically significant, sudden or life threatening deterioration of the [multiple] system(s) required my full and direct attention, intervention and personal management. The aggregate critical care time was [60] minutes. This time is in addition to time spent performing reported procedures but includes the following: [x] Data Review and interpretation [x] Patient assessment and monitoring of vital signs [x] Documentation [x] Medication orders and management Disposition Plan: ICU Total Time Spent with Patient (Minutes): 60 History Interval history: Patient seen and examined at the bedside. Remains table on 2L NC, denied any pain nor any discomfort at this time. s/p EGD yesterday, coughing blood tinge sputum but no s/s of any active bleeding. Still in Afib control with periods of hypotension overnight, BP is still borderline this am. Otherwise LUPE overnight Hospitalist Physical - Physical exam Narrative exam: General appearance: Present: no acute distress, well-nourished - EENT Eyes: Present: PERRL, EOM intact ENT: hearing intact - Neck Neck: Present: normal ROM - Respiratory Respiratory effort: normal Respiratory: bilateral: diminished - Cardiovascular Rhythm: irregularly irregular Heart Sounds: Present: S1 & S2 - Extremities Extremities: no ischemia, pulses intact, pulses symmetrical Peripheral Pulses: within normal limits - Abdominal General gastrointestinal: soft, non-distended, normal bowel sounds - Integumentary Integumentary: Present: clear, warm, dry - Psychiatric Psychiatric: appropriate mood/affect, cooperative - Neurologic Neurologic: CNII-XII intact, moves all extremities - Allied Health Allied health notes reviewed: nursing, case management - Constitutional Vitals: Temp Pulse Resp BP Pulse Ox 97.6 F 95 H 22 106/59 93 03/13/22 04:00 03/13/22 10:01 03/13/22 10:01 03/13/22 10:01 03/13/22 10:01 HEART Score - HEART Score Troponin: Troponin T < 0.010 ng/mL (0.00-0.029) 03/11/22 22:59 Results - Labs CBC & Chem 7: 03/13/22 04:49 03/13/22 04:49 Labs: Laboratory Last Values WBC 12.9 K/mm3 (4.5-11.0) H 03/13/22 04:49 RBC 4.02 M/mm3 (3.65-5.03) 03/13/22 04:49 Hgb 12.8 gm/dl (11.8-15.2) 03/13/22 04:49 Hct 38.2 % (35.5-45.6) 03/13/22 04:49 MCV 95 fl (84-94) H 03/13/22 04:49 MCH 32 pg (28-32) 03/13/22 04:49 MCHC 34 % (32-34) 03/13/22 04:49 RDW 14.7 % (13.2-15.2) 03/13/22 04:49 Plt Count 138 K/mm3 (140-440) L 03/13/22 04:49 Lymph % (Auto) 12.6 % (13.4-35.0) L 03/11/22 09:35 Branch % (Auto) 7.2 % (0.0-7.3) 03/11/22 09:35 Eos % (Auto) 0.1 % (0.0-4.3) 03/11/22 09:35 Baso % (Auto) 0.4 % (0.0-1.8) 03/11/22 09:35 Lymph # (Auto) 0.9 K/mm3 (1.2-5.4) L 03/11/22 09:35 Branch # (Auto) 0.5 K/mm3 (0.0-0.8) 03/11/22 09:35 Eos # (Auto) 0.0 K/mm3 (0.0-0.4) 03/11/22 09:35 Baso # (Auto) 0.0 K/mm3 (0.0-0.1) 03/11/22 09:35 Seg Neutrophils % 79.7 % (40.0-70.0) H 03/11/22 09:35 Seg Neutrophils # 6.0 K/mm3 (1.8-7.7) 03/11/22 09:35 PT 17.5 Sec. (12.2-14.9) H 03/11/22 09:35 INR 1.25 (0.87-1.13) H 03/11/22 09:35 APTT 33.2 Sec. (24.2-36.6) 03/11/22 09:35 Heparin Anti-Xa Level 0.73 U.I./ml (0.3-0.7) H 03/11/22 22:59 Sodium 136 mmol/L (137-145) L 03/13/22 04:49 Potassium 4.0 mmol/L (3.6-5.0) 03/13/22 04:49 Chloride 101.1 mmol/L (98-107) 03/13/22 04:49 Carbon Dioxide 23 mmol/L (22-30) 03/13/22 04:49 Anion Gap 16 mmol/L 03/13/22 04:49 BUN 26 mg/dL (9-20) H 03/13/22 04:49 Creatinine 0.8 mg/dL (0.8-1.3) 03/13/22 04:49 Estimated GFR > 60 ml/min 03/13/22 04:49 BUN/Creatinine Ratio 33 % 03/13/22 04:49 Glucose 85 mg/dL (75-100) 03/13/22 04:49 POC Glucose 87 mg/dL (70-105) 03/13/22 04:58 Calcium 7.9 mg/dL (8.4-10.2) L 03/13/22 04:49 Phosphorus 2.60 mg/dL (2.5-4.5) D 03/13/22 04:49 Magnesium 1.90 mg/dL (1.7-2.3) 03/13/22 04:49 Total Bilirubin 2.20 mg/dL (0.1-1.2) H 03/13/22 04:49 Direct Bilirubin 0.9 mg/dL (0-0.2) H 03/13/22 04:49 Indirect Bilirubin 1.3 mg/dL 03/13/22 04:49 AST 237 units/L (5-40) H 03/13/22 04:49 ALT 384 units/L (7-56) H 03/13/22 04:49 Alkaline Phosphatase 59 units/L (35-129) 03/13/22 04:49 Total Creatine Kinase 117 units/L (55-170) 03/11/22 09:35 CK-MB (CK-2) 4.6 ng/mL (0.0-4.0) H 03/11/22 09:35 CK-MB (CK-2) Rel Index 3.9 (0-4) 03/11/22 09:35 Troponin T < 0.010 ng/mL (0.00-0.029) 03/11/22 22:59 NT-Pro-B Natriuret Pep 9822 pg/mL (0-900) H 03/10/22 23:33 Total Protein 5.6 g/dL (6.3-8.2) L 03/13/22 04:49 Albumin 3.3 g/dL (3.9-5) L 03/13/22 04:49 Albumin/Globulin Ratio 1.4 % 03/13/22 04:49 Amylase 39 units/L (27-131) 03/12/22 04:34 Lipase 47 units/L (13-60) 03/12/22 04:34 Blood Type A NEGATIVE 03/11/22 22:59 Antibody Screen Negative 03/11/22 22:59 Victor/IV: Voiding Method Condom Catheter Active Medications - Current Medications Current Medications: Generic Name Dose Route Start Last Admin Trade Name Freq PRN Reason Stop Dose Admin Dextrose 25 ml 03/12/22 09:30 Dextrose 50% In Water (25gm) 50 Ml Syringe IV Q30MIN PRN Hypoglycemia Protocol Magnesium Sulfate 2 gm in 50 mls @ 25 mls/hr 03/13/22 08:00 03/13/22 08:01 Magnesium Sulfate 2gm/50ml IV 03/13/22 12:00 25 mls/hr ONCE@0800 RIMA Administration Lisinopril 5 mg 03/14/22 10:00 Lisinopril 5 Mg Tab PO DAILY [facility] Metoprolol Tartrate 50 mg 03/11/22 08:00 03/13/22 08:00 Metoprolol Tartrate 50 Mg Tab PO Not Given TID [facility] Morphine Sulfate 2 mg 03/11/22 04:20 03/11/22 09:04 Morphine 4 Mg/1 Ml Inj IV 2 mg Q5MIN PRN Administration Chest Pain unrelieved by NTG Nitroglycerin 0.4 mg 03/11/22 04:20 03/11/22 09:45 Nitroglycerin 0.4 Mg Tab Subl SL 0.4 mg Q5M PRN Administration Chest Pain Ondansetron HCl 4 mg 03/11/22 06:43 03/11/22 22:40 Ondansetron 4 Mg/2 Ml Inj IV 4 mg Q4H PRN Administration Nausea And Vomiting Pantoprazole Sodium 40 mg 03/11/22 22:00 03/13/22 09:39 Pantoprazole 40 Mg Inj IV 40 mg BID RIMA Administration Polyethylene Glycol 17 gm 03/11/22 04:23 Polyethylene Glycol 3350 17 Gm Powder PO QDAY PRN Constipation Promethazine HCl 12.5 mg 03/12/22 07:54 Promethazine 12.5 Mg Rect Supp [place] Q6H PRN Nausea And Vomiting Senna/Docusate Sodium 1 tab 03/11/22 04:23 Sennosides/Docusate Sodium 8.6/50 Mg Tab PO HS PRN Constipation Sodium Chloride 10 ml 03/11/22 04:20 03/13/22 09:39 Sodium Chloride 0.9% 10 Ml Flush Syringe IV 10 ml PRN PRN Administration LINE FLUSH Tramadol HCl 50 mg 03/11/22 04:20 Tramadol 50 Mg Tab PO Q6H PRN Pain, Moderate (4-6)
--- NOTE | 2022-03-13 12:08 | Progress Note ---
Assessment and Plan 72 y/o male with afib with RVR, subtherapeutic INR and now right epigastric pain 03/13/22: Clinically stable. No further bleeding as of this moment. Follow up GI recs. Stable for transfer to tele. Has CHF so likely will need oxygen at discharge. Will sign off once out of unit. 03/12/22: Hopeful patient will get scoped soon. Likely needs some form of biopsy but this depending on what they see on EGD. NPO for now. No further an ticoagulation. BID PPI. H/H has been stable. Guarded to poor prognosis given most recent findings. 1. KUB unremarkable 2. Suggest CTA of abdomen pelvis given prolonged history of afib and inadequate anticoagulation given subtherapeutic INR 3. Rate appears controlled with amio will defer to cards 4. Agree with heparin drip 5. IF CTA is negative, consider GI consult. Patient could have PUD 6. Abdominal pain could also be his anginal equivalent as well. Still would rule out cardiovascular causes as well. Subjective Date of service: 03/13/22 Interval history: EGD showed several ulcers. Only one clipped and epi given. Objective - Constitutional Vitals: Vital Signs - 12hr 03/13/22 03/13/22 03/13/22 00:05 01:00 02:00 Temperature Pulse Rate 99 H 88 99 H Pulse Rate [ From Monitor] Respiratory 24 17 37 H Rate Blood Pressure 114/79 111/80 O2 Sat by Pulse 98 97 94 Oximetry 03/13/22 03/13/22 03/13/22 03:01 04:00 05:00 Temperature 97.6 F Pulse Rate 98 H 98 H 104 H Pulse Rate [ From Monitor] Respiratory 20 20 22 Rate Blood Pressure 103/67 113/68 107/68 O2 Sat by Pulse 96 96 94 Oximetry 03/13/22 03/13/22 03/13/22 06:00 06:40 07:00 Temperature Pulse Rate 94 H 94 H 103 H Pulse Rate [ From Monitor] Respiratory 24 18 Rate Blood Pressure 99/64 94/55 O2 Sat by Pulse 95 91 Oximetry 03/13/22 03/13/22 03/13/22 08:00 09:00 09:50 Temperature Pulse Rate 89 97 H Pulse Rate [ 89 From Monitor] Respiratory 18 16 Rate Blood Pressure 82/46 103/68 O2 Sat by Pulse 93 90 95 Oximetry 03/13/22 10:01 Temperature Pulse Rate 95 H Pulse Rate [ From Monitor] Respiratory 22 Rate Blood Pressure 106/59 O2 Sat by Pulse 93 Oximetry - Labs CBC & Chem 7: 03/13/22 04:49 03/13/22 04:49 Labs: Abnormal lab results 03/12/22 03/13/22 03/13/22 Range/Units 12:50 04:49 04:49 WBC 12.9 H (4.5-11.0) K/mm3 MCV 96 H 95 H (84-94) fl Plt Count 135 L 138 L (140-440) K/mm3 Sodium 136 L (137-145) mmol/L BUN 26 H (9-20) mg/dL Calcium 7.9 L (8.4-10.2) mg/dL Total Bilirubin 2.20 H (0.1-1.2) mg/dL Direct Bilirubin 0.9 H (0-0.2) mg/dL AST 237 H (5-40) units/L ALT 384 H (7-56) units/L Total Protein 5.6 L (6.3-8.2) g/dL Albumin 3.3 L (3.9-5) g/dL Medications & Allergies - Medications Allergies/Adverse Reactions: Allergies No Known Allergies Allergy (Unverified 08/06/19 11:39) Home Medications: Home Medications Medication Instructions Recorded Confirmed Last Taken Type Lisinopril [Zestril] 5 mg PO DAILY #90 tablet 08/09/19 Unknown Rx Metoprolol [Lopressor TAB] 50 mg PO TID #90 tablet 08/09/19 Unknown Rx Sennosides/Docusate Sodium [Senna 1 each PO HS PRN #30 tablet 08/09/19 Unknown Rx Plus 8.6-50 mg Tablet] Warfarin [Coumadin] 2.5 mg PO DAILY@1700 #30 tablet 08/09/19 Unknown Rx polyethylene glycoL 3350 [Miralax 17 gm PO QDAY PRN #30 packet 08/09/19 Unknown Rx 3350] Active Medications: Generic Name Dose Route Start Last Admin Trade Name Freq PRN Reason Stop Dose Admin Dextrose 25 ml 03/12/22 09:30 Dextrose 50% In Water (25gm) 50 Ml Syringe IV Q30MIN PRN Hypoglycemia Protocol Lisinopril 5 mg 03/14/22 10:00 Lisinopril 5 Mg Tab PO DAILY [facility] Metoprolol Tartrate 50 mg 03/13/22 22:00 Metoprolol Tartrate 50 Mg Tab PO BID [facility] Morphine Sulfate 2 mg 03/11/22 04:20 03/11/22 09:04 Morphine 4 Mg/1 Ml Inj IV 2 mg Q5MIN PRN Administration Chest Pain unrelieved by NTG Nitroglycerin 0.4 mg 03/11/22 04:20 03/11/22 09:45 Nitroglycerin 0.4 Mg Tab Subl SL 0.4 mg Q5M PRN Administration Chest Pain Ondansetron HCl 4 mg 03/11/22 06:43 03/11/22 22:40 Ondansetron 4 Mg/2 Ml Inj IV 4 mg Q4H PRN Administration Nausea And Vomiting Pantoprazole Sodium 40 mg 03/11/22 22:00 03/13/22 09:39 Pantoprazole 40 Mg Inj IV 40 mg BID RIMA Administration Polyethylene Glycol 17 gm 03/11/22 04:23 Polyethylene Glycol 3350 17 Gm Powder PO QDAY PRN Constipation Promethazine HCl 12.5 mg 03/12/22 07:54 Promethazine 12.5 Mg Rect Supp [place] Q6H PRN Nausea And Vomiting Senna/Docusate Sodium 1 tab 03/11/22 04:23 Sennosides/Docusate Sodium 8.6/50 Mg Tab PO HS PRN Constipation Sodium Chloride 10 ml 03/11/22 04:20 03/13/22 09:39 Sodium Chloride 0.9% 10 Ml Flush Syringe IV 10 ml PRN PRN Administration LINE FLUSH Tramadol HCl 50 mg 03/11/22 04:20 Tramadol 50 Mg Tab PO Q6H PRN Pain, Moderate (4-6) HEART Score - HEART Score Troponin: Troponin T < 0.010 ng/mL (0.00-0.029) 03/11/22 22:59
--- NOTE | 2022-03-13 12:26 | Progress Note ---
Assessment and Plan Patient 72-year-old male with a past medical history of A. fib, HFrEF, and cardiomyopathy, who presents to the ED with a complaint of shortness of breath, palpitations, abdominal pain, and malaise x9 days. A. fib with RVR Chronic HFrEF Nonischemic cardiomyopathy Abdominal pain-GI following Nausea/vomiting Elevated LFTs Medical noncompliance Echo 03/11/2022-EF 20 to 25%. Left ventricle is mildly dilated. Severe global hypokinesis of the LV. Mild aortic regurgitation. No pericardial effusion. Large left pleural effusion Echo 08/07/2019-EF 20 to 25%. Left atrium mildly dilated. Right ventricle is moderately dilated. Right ventricle systolic function is moderately reduced. Right atrium is moderately dilated. Mild to moderate aortic regurgitation. Moderate mitral regurgitation. Moderate tricuspid regurgitation. Lexiscan MPI stress test 08/09/2019-no evidence of significant degree of ischemia or prior infarction Plan: Patient for EGD today Telemetry reviewed patient remains in A. fib 80s to 90s However as patient has had soft blood pressures will decrease to metoprolol 50 mg p.o. twice daily Continue lisinopril 5 mg p.o. daily No statin or amiodarone due to elevated LFTs No aspirin due to GI bleed Hold anticoagulation until cleared by GI Patient in conjunction with Dr. Fields who agrees with plan of care 30 minutes of critical care time spent care coordination patient - Patient Problems (1) Atrial fibrillation with RVR Current Visit: Yes Status: Acute (2) Hematemesis of unknown etiology Current Visit: Yes Status: Acute (3) Cardiomyopathy Current Visit: No Status: Acute (4) Nicotine dependence Current Visit: No Status: Acute Qualifiers: Subjective Date of service: 03/13/22 Principal diagnosis: afib w/ rvr, GI bleed Interval history: Patient for EGD this a.m. A. fib 80s to 90s on monitor Objective Vital Signs Temp Pulse Pulse Resp BP Pulse Ox 03/13/22 12:00 96 H 96 H 19 102/68 96 03/13/22 11:00 83 20 101/64 95 03/13/22 10:01 95 H 22 106/59 93 03/13/22 09:50 95 03/13/22 09:00 97 H 16 103/68 90 03/13/22 08:00 89 89 18 82/46 93 03/13/22 07:00 103 H 18 94/55 91 03/13/22 06:40 94 H 03/13/22 06:00 94 H 24 99/64 95 03/13/22 05:00 104 H 22 107/68 94 03/13/22 04:00 97.6 F 98 H 20 113/68 96 03/13/22 03:01 98 H 20 103/67 96 03/13/22 02:00 99 H 37 H 111/80 94 03/13/22 01:00 88 17 114/79 97 03/13/22 00:05 99 H 24 98 03/13/22 00:00 100.4 F H 103 H 22 107/73 98 03/12/22 23:00 114 H 28 H 112/78 95 03/12/22 22:01 115 H 25 H 122/68 97 03/12/22 22:00 100 03/12/22 21:14 104 H 119/54 03/12/22 21:05 103 H 26 H 119/54 92 03/12/22 21:01 95 H 25 H 119/54 99 03/12/22 20:01 111 H 28 H 117/88 74 L 03/12/22 20:00 98.8 F 03/12/22 19:15 101 H 104 H 24 98 03/12/22 19:00 101 H 26 H 117/72 97 03/12/22 18:00 98 H 12 118/77 98 03/12/22 17:00 105 H 28 H 111/74 98 03/12/22 16:23 98.0 F 03/12/22 16:00 93 H 97 H 17 114/67 97 03/12/22 15:00 98 H 25 H 110/78 92 03/12/22 14:53 97.8 F 105 H 22 102/72 98 03/12/22 14:10 98 F 95 H 21 112/80 99 03/12/22 14:00 88 24 112/80 99 03/12/22 13:00 89 19 104/71 99 03/12/22 12:55 97.8 F - Physical Examination General: No Apparent Distress HEENT: Positive: PERRL Neck: Positive: trachea midline Cardiac: Positive: irregularly irregular Lungs: Positive: Normal Breath Sounds Neuro: Positive: Grossly Intact Abdomen: Positive: Soft, Other (Hernia) Skin: Negative: Rash, Suspicious Lesions, Ulceration Extremities: Present: upper extr. pulses. Absent: edema - Labs and Meds Cardiac Enzymes 03/13/22 Range/Units 04:49 AST 237 H (5-40) units/L CBC 03/12/22 03/13/22 03/13/22 Range/Units 12:50 01:03 04:49 WBC 7.9 12.9 H (4.5-11.0) K/mm3 RBC 4.16 4.02 (3.65-5.03) M/mm3 Hgb 13.3 12.0 12.8 (11.8-15.2) gm/dl Hct 40.1 36.9 38.2 (35.5-45.6) % Plt Count 135 L 141 138 L (140-440) K/mm3 Comprehensive Metabolic Panel 03/13/22 Range/Units 04:49 Sodium 136 L (137-145) mmol/L Potassium 4.0 (3.6-5.0) mmol/L Chloride 101.1 (98-107) mmol/L Carbon Dioxide 23 (22-30) mmol/L BUN 26 H (9-20) mg/dL Creatinine 0.8 (0.8-1.3) mg/dL Glucose 85 (75-100) mg/dL Calcium 7.9 L (8.4-10.2) mg/dL Direct Bilirubin 0.9 H (0-0.2) mg/dL Indirect Bilirubin 1.3 mg/dL AST 237 H (5-40) units/L ALT 384 H (7-56) units/L Alkaline Phosphatase 59 (35-129) units/L Total Protein 5.6 L (6.3-8.2) g/dL Albumin 3.3 L (3.9-5) g/dL - Imaging and Cardiology Echo: report reviewed - Telemetry EKG Rhythm: Atrial Fibrillation
--- NOTE | 2022-03-13 14:10 | XRay Report ---
CHEST 1 VIEW 03/13/2022 11:16 AM INDICATION / CLINICAL INFORMATION: Hypoxia. COMPARISON: 03/10/2022 FINDINGS: SUPPORT DEVICES: None. HEART / MEDIASTINUM: Stable cardiomegaly. LUNGS / PLEURA: Pulmonary vascular congestion with bilateral hilar predominant opacities in both lung s. Interstitial prominence. Small bilateral pleural effusions, left greater than right. No pneumothor ax. ADDITIONAL FINDINGS: No significant additional findings. IMPRESSION: 1. Cardiomegaly and pulmonary edema with bilateral pleural effusions, left greater than right. Signer Name: Johnson Ribera MD Signed: 03/13/2022 2:06 PM Workstation Name: [email or web address]
--- NOTE | 2022-03-13 14:40 | Post Anesthesia Evaluation ---
- Post Anesthesia Evaluation Patient Participated: Yes Airway Patent: Yes Stable Respiratory Function: Yes Nausea/Vomiting: Yes Temp > 96.8F: No Pain Manageable: Yes Adequeate Hydration: Yes Anesthesia Complications: No
--- NOTE | 2022-03-13 14:48 | Gastroenterology Progress Note ---
Assessment and Plan # Epigastric pain # Hematemesis - s/p EGD on 03/12/2022 Impressions: 1. Multiple ulcers in the antrum. No active bleeding. 1 ulcer treated as listed above. 2. A small hiatal hernia. 3. Diffuse antral and body gastritis. 4. Normal duodenal exam. - currently without any further bleeding. - h/h stable. rec: -Continue to monitor hemoglobin serially and transfuse as needed with hemoglobin goal above 7 -Continue with IV PPI 40 mg twice daily and transition to PO bid dosing tomorrow if no signs of bleeding. -Monitor for signs of active GI bleed. -Can resume anticoagulation tomorrow if no signs of bleeding. - recommend work up for hypodense lesions of liver seen on US with MRI liver protocol once more stable. - AFP pending. Subjective Date of service: 03/13/22 Principal diagnosis: afib w/ rvr, GI bleed Interval history: No vomiting blood. No abdominal pain. No BM overnight. Objective - Constitutional Vitals: Temp Pulse Resp BP Pulse Ox 97.6 F 86 18 106/61 94 03/13/22 04:00 03/13/22 13:00 03/13/22 13:00 03/13/22 13:00 03/13/22 13:00 General appearance: no acute distress - EENT Eyes: EOM intact ENT: hearing intact - Neck Neck: supple - Respiratory Respiratory effort: normal - Cardiovascular Rhythm: regular Heart Sounds: Present: S1 & S2 - Gastrointestinal General gastrointestinal: Present: soft, non-tender, non-distended - Integumentary Integumentary: Present: clear, warm - Neurologic Neurological: alert and oriented x3 - Labs CBC & Chem 7: 03/13/22 04:49 03/13/22 04:49 Labs: Laboratory Results - last 24 hr 03/12/22 03/13/22 03/13/22 19:18 01:03 04:49 WBC 12.9 H RBC 4.02 Hgb 12.0 12.8 Hct 36.9 38.2 MCV 95 H MCH 32 MCHC 34 RDW 14.7 Plt Count 141 138 L Sodium Potassium Chloride Carbon Dioxide Anion Gap BUN Creatinine Estimated GFR BUN/Creatinine Ratio Glucose POC Glucose 86 Calcium Phosphorus Magnesium Total Bilirubin Direct Bilirubin Indirect Bilirubin AST ALT Alkaline Phosphatase Total Protein Albumin Albumin/Globulin Ratio 03/13/22 03/13/22 04:49 04:58 WBC RBC Hgb Hct MCV MCH MCHC RDW Plt Count Sodium 136 L Potassium 4.0 Chloride 101.1 Carbon Dioxide 23 Anion Gap 16 BUN 26 H Creatinine 0.8 Estimated GFR > 60 BUN/Creatinine Ratio 33 Glucose 85 POC Glucose 87 Calcium 7.9 L Phosphorus 2.60 D Magnesium 1.90 Total Bilirubin 2.20 H Direct Bilirubin 0.9 H Indirect Bilirubin 1.3 AST 237 H ALT 384 H Alkaline Phosphatase 59 Total Protein 5.6 L Albumin 3.3 L Albumin/Globulin Ratio 1.4
[2022-03-13] MEDS ORDERED: METOPROLOL TARTRATE 50 MG TAB PO SCH (22:00)
[2022-03-14 04:29] LABS: Hematocrit 38.9 % (35.5-45.6); Hemoglobin 13.1 gm/dl (11.8-15.2); Mean Corpuscular HGB Conc 34 % (32-34); Mean Corpuscular Volume 95 fl (84-94); Platelet Count 150 K/mm3 (140-440); Red Cell Distribution Width 14.7 % (13.2-15.2)
[2022-03-14 04:38] LABS: INR 1.16 (0.87-1.13)
[2022-03-14 05:06] LABS: Alanine Aminotransferase 290 units/L (7-56); Albumin 3.3 g/dL (3.9-5); BUN/Creatinine Ratio 18; Blood Urea Nitrogen 16 mg/dL (9-20); Calcium 7.9 mg/dL (8.4-10.2); Hemolysis Index 8
--- NOTE | 2022-03-14 07:35 | Progress Note ---
Assessment and Plan 72 y/o male with afib with RVR, subtherapeutic INR and now right epigastric pain 03/14/22: Pulm de la fuente stable. If patient does need oxygen at discharge, can use CHF as his diagnosis for this. Will need ambulatory pulse ox as I do not think he has oxygen at home. Will sign off. Call if questions. 03/13/22: Clinically stable. No further bleeding as of this moment. Follow up GI recs. Stable for transfer to tele. Has CHF so likely will need oxygen at discharge. Will sign off once out of unit. 03/12/22: Hopeful patient will get scoped soon. Likely needs some form of biopsy but this depending on what they see on EGD. NPO for now. No further anticoagulation. BID PPI. H/H has been stable. Guarded to poor prognosis given most recent findings. 1. KUB unremarkable 2. Suggest CTA of abdomen pelvis given prolonged history of afib and inadequate anticoagulation given subtherapeutic INR 3. Rate appears controlled with amio will defer to cards 4. Agree with heparin drip 5. IF CTA is negative, consider GI consult. Patient could have PUD 6. Abdominal pain could also be his anginal equivalent as well. Still would ru le out cardiovascular causes as well. Subjective Date of service: 03/14/22 Principal diagnosis: afib w/ rvr, GI bleed Interval history: Successful transfer out of unit. Hemodynamics have been stable. Still on oxygen. Objective Vital Signs - 12hr 03/13/22 03/13/22 03/14/22 21:55 23:08 03:17 Temperature 97.7 F 97.8 F Pulse Rate 83 82 Respiratory 18 18 Rate Blood Pressure 97/54 91/56 O2 Sat by Pulse 97 95 96 Oximetry CBC and BMP: 03/14/22 04:04 03/14/22 04:04 ABG, PT/INR, D-dimer: PT/INR, D-dimer PT 16.5 Sec. (12.2-14.9) H 03/14/22 04:04 INR 1.16 (0.87-1.13) H 03/14/22 04:04 Abnormal lab findings: Abnormal Labs 03/10/22 03/10/22 03/10/22 23:33 23:33 23:33 WBC MCV 96 H Plt Count Lymph % (Auto) Wirt % (Auto) 9.0 H Lymph # (Auto) 1.1 L Seg Neutrophils % 73.4 H PT 16.9 H INR 1.20 H Heparin Anti-Xa Level Sodium 136 L Carbon Dioxide BUN 22 H Glucose 107 H POC Glucose Calcium Phosphorus Total Bilirubin 1.70 H Direct Bilirubin AST 64 H ALT 103 H CK-MB (CK-2) NT-Pro-B Natriuret Pep Total Protein Albumin 03/10/22 03/11/22 03/11/22 23:33 09:35 09:35 WBC MCV 96 H Plt Count Lymph % (Auto) 12.6 L Wirt % (Auto) Lymph # (Auto) 0.9 L Seg Neutrophils % 79.7 H PT INR Heparin Anti-Xa Level Sodium 131 L Carbon Dioxide 18 L BUN 22 H Glucose 173 H POC Glucose Calcium Phosphorus Total Bilirubin 1.80 H Direct Bilirubin 0.6 H AST 89 H ALT 137 H CK-MB (CK-2) NT-Pro-B Natriuret Pep 9822 H Total Protein Albumin 03/11/22 03/11/22 03/11/22 09:35 09:35 12:20 WBC MCV Plt Count Lymph % (Auto) Wirt % (Auto) Lymph # (Auto) Seg Neutrophils % PT 17.5 H INR 1.25 H Heparin Anti-Xa Level Sodium Carbon Dioxide BUN Glucose POC Glucose 151 H Calcium Phosphorus Total Bilirubin Direct Bilirubin AST ALT CK-MB (CK-2) 4.6 H NT-Pro-B Natriuret Pep Total Protein Albumin 03/11/22 03/11/22 03/11/22 16:10 22:59 22:59 WBC MCV Plt Count 139 L Lymph % (Auto) Wirt % (Auto) Lymph # (Auto) Seg Neutrophils % PT INR Heparin Anti-Xa Level 0.73 H Sodium Carbon Dioxide BUN Glucose POC Glucose 165 H Calcium Phosphorus Total Bilirubin Direct Bilirubin AST ALT CK-MB (CK-2) NT-Pro-B Natriuret Pep Total Protein Albumin 03/11/22 03/12/22 03/12/22 23:37 04:34 05:49 WBC MCV Plt Count Lymph % (Auto) Wirt % (Auto) Lymph # (Auto) Seg Neutrophils % PT INR Heparin Anti-Xa Level Sodium 135 L Carbon Dioxide 20 L BUN 35 H Glucose 122 H POC Glucose 146 H 124 H Calcium Phosphorus Total Bilirubin 1.80 H Direct Bilirubin 0.8 H AST 567 H ALT 538 H CK-MB (CK-2) NT-Pro-B Natriuret Pep Total Protein 6.0 L Albumin 3.6 L 03/12/22 03/12/22 03/13/22 06:31 12:50 04:49 WBC 12.9 H MCV 96 H 95 H Plt Count 135 L 138 L Lymph % (Auto) Wirt % (Auto) Lymph # (Auto) Seg Neutrophils % PT INR Heparin Anti-Xa Level Sodium Carbon Dioxide BUN Glucose POC Glucose 193 H Calcium Phosphorus Total Bilirubin Direct Bilirubin AST ALT CK-MB (CK-2) NT-Pro-B Natriuret Pep Total Protein Albumin 03/13/22 03/14/22 03/14/22 04:49 04:04 04:04 WBC MCV 95 H Plt Count Lymph % (Auto) Wirt % (Auto) Lymph # (Auto) Seg Neutrophils % PT 16.5 H INR 1.16 H Heparin Anti-Xa Level Sodium 136 L Carbon Dioxide BUN 26 H Glucose POC Glucose Calcium 7.9 L Phosphorus Total Bilirubin 2.20 H Direct Bilirubin 0.9 H AST 237 H ALT 384 H CK-MB (CK-2) NT-Pro-B Natriuret Pep Total Protein 5.6 L Albumin 3.3 L 03/14/22 04:04 WBC MCV Plt Count Lymph % (Auto) Wirt % (Auto) Lymph # (Auto) Seg Neutrophils % PT INR Heparin Anti-Xa Level Sodium 136 L Carbon Dioxide BUN Glucose POC Glucose Calcium 7.9 L Phosphorus 2.10 L Total Bilirubin 2.30 H Direct Bilirubin AST 108 H ALT 290 H CK-MB (CK-2) NT-Pro-B Natriuret Pep Total Protein 5.6 L Albumin 3.3 L
--- NOTE | 2022-03-14 08:18 | Discharge Summary ---
Providers - Providers Date of Admission: 03/11/22 04:20 Attending physician: IVAN TEIXEIRA MD 03/11/22 Consult to Cardiac Rehabilitation [CONS] Routine Reason For Exam: Phase I 03/11/22 04:20 Consult to Cardiology [CONS] Routine Consulting Provider: TAMMY GUERRERO Reason For Exam: a.fib 03/11/22 04:25 Consult to Physician [CONS] Routine Comment: Consulting Provider: MAE MILLER Physician Instructions: Reason For Exam: a.fib 03/11/22 18:10 Consult to Physician [CONS] Routine Comment: Consulting Provider: WILMER COLIN Physician Instructions: Reason For Exam: Bloody emesis, elevated LFTs Primary care physician: AVIATION ELECTRONICS TECHNICIAN Hospitalization Reason for admission: afib with rvr Condition: Stable Hospital course: This is a 72-year-old male with known past medical history of HFrEF, nonischemic cardiomyopathy, HTN, paroxysmal atrial fibrilation, was on warfarin at home admitted for CP and atrial fibrillation with RVR Hospital Course to Date: 03/11: still c/o of severe CP/epigatric pain accompanied with nausea/vomiting, treated per CP protocol. Troponin is negative X2, repeat EKG shows Afib with no significant ST. Patient remains on the Amiodarone gtt, still in Afib but rate control this am, VSS. Orders placed for CTA abd/pelvis to r/o ischemia. Heparin gtt initiated per protocol. Patient is up to 4L NC this am, Echo from 2019 reviewed, LVEF 20 to 25%. X1 dose of IV lasix this am. Transaminitis also noted, awaiting CTA result. On amiodarone gtt, will continue to trend LFTs for now. Cardiology and CCM also following. Plan of care discussed with patient using the hospital liaison line, all questions and concerns were addressed at this time. 03/12: Bloody emesis overnight, heparin held. H&H remains stable. Patient is now NPO, PPI switched to IV protonix BID, GI consulted. Worsen transaminitis this am, amiodarone, statin, and tylenol held. Patient remains in Afib but in control rate. Abd US noted, hepacellular disease and Liver lession noted, MRCP pending. Plan for possible EGD today per GI. D/w Cardio, patient is high risk, however, okay for EGD from their standpoint. 03/13: S/p EGD, multiple ulcers in the antrum but no active bleeding noted, X1 ulcer treated. Still coughing blood tinge sputum this am but no s/s of any active bleeding, H&H stable. GI recommendations noted. Will continue PPI and continue to trend LFTs, MRCP is unremarkable. Patient remains in Afib but in control rate. Per cardio plan for conservative management, decrease BB due to soft BP. Continue to hold AC until cleared GI. Clear liquid diet today, advance as tolerated. Patient is stable for Telemetry. 03/14: Patient seen and examined, Remains table on 2L NC, denied any pain nor any discomfort at this time. s/p EGD, no further hemoptysis no s/s of any active bleeding. Still in Afib control with periods of hypotension overnight, BP is still borderline this am. Otherwise LUPE overnight. I have decreased the metoprolol further to 25 mg p.o. twice daily and also decrease the lisinopril to 2.5MG daily. Outpatient follow-up with appliance service technician. GI doctor will restart anticoagulation today. I am also recommending outpatient evaluation of the hypodense lesion seen on ultrasound primary care physician to follow-up on AFP LFTs are trending down. We will continue off amiodarone. Will recommend repeat LFTs outpatient EGD REPORT PER GI # Epigastric pain # Hematemesis - s/p EGD on 03/12/2022 Impressions: 1. Multiple ulcers in the antrum. No active bleeding. 1 ulcer treated as listed above. 2. A small hiatal hernia. 3. Diffuse antral and body gastritis. 4. Normal duodenal exam. - currently without any further bleeding. - h/h stable. rec: -Continue to monitor hemoglobin serially and transfuse as needed with hemoglobin goal above 7 -Continue with IV PPI 40 mg twice daily and transition to PO bid dosing tomorrow if no signs of bleeding. -Monitor for signs of active GI bleed. -Can resume anticoagulation tomorrow if no signs of bleeding. - recommend work up for hypodense lesions of liver seen on US with MRI liver protocol once more stable. - AFP pending. Cardiac studies Echo 03/11/2022-EF 20 to 25%. Left ventricle is mildly dilated. Severe global hypokinesis of the LV. Mild aortic regurgitation. No pericardial effusion. Large left pleural effusion Echo 08/07/2019-EF 20 to 25%. Left atrium mildly dilated. Right ventricle is moderately dilated. Right ventricle systolic function is moderately reduced. Right atrium is moderately dilated. Mild to moderate aortic regurgitation. Moderate mitral regurgitation. Moderate tricuspid regurgitation. Lexiscan MPI stress test 08/09/2019-no evidence of significant degree of ischemia or prior infarction Additional 15-minutes counseling provided on need to quit tobacco use. Assessment and Plan #Atrial Fibrillation with RVR #Heart Failure with Reduced EF #Nonischemic cardiomyopathy #Hypertension - Remains in Afib, rate control. On amiodarone gtt - C/o CP/epigastric pain. troponin negX2, EKG with no ST changes - Cardiology consulted, appreciate recommendations - Reduce BB anad continue to hold lisinopril due to low BP - 2019 echo reviewed, LVEF 20-25% - s/p X1 dose of 20mg IV lasix - repeat echo noted, LVEF unchanged- 20-25 - Per cardio plan for conservative management - Continue blood pressure monitor per protocol - Maintain MAP above 65 - Strict I&Os, daily weight - CCM is also following - Heparin gtt- held due to bloody emesis. Continue to hold AC until cleared GI. #Acute Hypoxic Respiratory Failure - most likely secondary to above - S/p X1 dose 20mg IV lasix - Down to 2L NC - Continue O2 supplementation and wean as tolerated - Continue SPO2 monitoring for SPO2 goal above 92% - CCM is following, appreciate recommendations #Transaminitis #Bloody Emesis #Multiple ulcers in the antrum. # A small hiatal hernia. #Diffuse antral and body gastritis. #hypodense lesions of liver #Epigastric Pain #Nausea/Vomiting - Presented with mildly elevated LFTs - CTA adb/pelvis unremarkable - US ABD concerning for hepacellular disease and Liver lession - 03/12 s/p EGD-multiple ulcers in the antrum but no active bleeding noted, X1 ulcer treated. see report for details - MRCP unremarkable - GI consulted, appreciate recommendations - continue PPI and continue to trend LFTs - Continue PRN analgesia for pain control - Continue PRN antiemetic for N/V #Nicotine Dependence - Smoking cessation education provided using hospital liaison line, patient verbalized understanding - Nicotine as needed if patient is experiencing any urges #GI/DVT Prophylaxis - PPI- protonix - SCDs to bilateral lower extremities while in bed #Advance Care Planning - Disease education data, care plan, diagnoses, and prognosis were discussed with patient at the bedside using the hospital liaison line. Patient is a FULL code. Patient acknowledged understanding and agreed with current care plan. Disposition: 01 HOME / SELF CARE / HOMELESS Final Discharge Diagnosis (Prints w/discharge instructions): #Atrial Fibrillation with RVR. #Heart Failure with Reduced EF. #Nonischemic cardiomyopathy. #Hypertension. #Acute Hypoxic Respiratory Failure. #Transam initis. #Bloody Emesis. #Multiple ulcers in the antrum. # A small hiatal hernia. #Diffuse antral and body gastritis. #hypodense lesions of liver. #Epigastric Pain. #Nausea/Vomiting. #Nicotine Dependence Time spent for discharge: 35 mins Core Measure Documentation - Palliative Care Palliative Care/ Comfort Measures: Not Applicable - Core Measures Any of the following diagnoses?: none Exam - Physical Exam Narrative exam: General appearance: Present: no acute distress, well-nourished, no dizziness reported - EENT Eyes: Present: PERRL, EOM intact ENT: hearing intact - Neck Neck: Present: normal ROM - Respiratory Respiratory effort: normal Respiratory: bilateral: diminished - Cardiovascular Rhythm: irregularly irregular Heart Sounds: Present: S1 & S2 - Extremities Extremities: no ischemia, pulses intact, pulses symmetrical Peripheral Pulses: within normal limits - Abdominal General gastrointestinal: soft, non-distended, normal bowel sounds - Integumentary Integumentary: Present: clear, warm, dry - Psychiatric Psychiatric: appropriate mood/affect, cooperative - Neurologic Neurologic: CNII-XII intact, moves all extremities - Allied Health Allied health notes reviewed: nursing, case management - Constitutional Vitals: Temp Pulse Resp BP Pulse Ox 97.8 F 82 18 91/56 96 03/14/22 03:17 03/14/22 03:17 03/14/22 03:17 03/14/22 03:17 03/14/22 03:17 Plan Activity: advance as tolerated, fall precautions Diet: low fat Care Plan Goals: Please stop warfarin if recurrent bleeding Must follow with Primary care doctor in 2-3 days to check INR level AND LFT Follow up with: MAE MILLER MD [Staff Physician] - 7 Days CALLY TERRELL MD [Staff Physician] - 7 Days EDGARD ARAIZA MD [Staff Physician] - 7 Days PRIMARY CARE, [Primary Care Provider] - 3-5 Days ROCAEL BARROSO MD [Staff Physician] - 3 Days Prescriptions: Metoprolol [Lopressor TAB] 25 mg PO BID #30 tablet Pantoprazole [Protonix TAB] 40 mg PO QDAY #30 tablet
[2022-03-14] MEDS ORDERED: LISINOPRIL 5 MG TAB PO SCH ×2 (10:00→11:00)
[2022-03-14] MEDS ORDERED: METOPROLOL TARTRATE 50 MG TAB PO SCH (11:00)
[2022-03-14] MEDS: PANTOPRAZOLE 40 MG INJ IV SCH (11:30)
--- NOTE | 2022-03-14 12:22 | Progress Note ---
Assessment and Plan Patient 72-year-old male with a past medical history of A. fib, HFrEF, and cardiomyopathy, who presents to the ED with a complaint of shortness of breath, palpitations, abdominal pain, and malaise x9 days. A. fib with RVR Chronic HFrEF Nonischemic cardiomyopathy Abdominal pain-GI following Nausea/vomiting Elevated LFTs Medical noncompliance Echo 03/11/2022-EF 20 to 25%. Left ventricle is mildly dilated. Severe global hypokinesis of the LV. Mild aortic regurgitation. No pericardial effusion. Large left pleural effusion Echo 08/07/2019-EF 20 to 25%. Left atrium mildly dilated. Right ventricle is moderately dilated. Right ventricle systolic function is moderately reduced. Right atrium is moderately dilated. Mild to moderate aortic regurgitation. Moderate mitral regurgitation. Moderate tricuspid regurgitation. Lexiscan MPI stress test 08/09/2019-no evidence of significant degree of ischemia or prior infarction Plan: Telemetry reviewed patient remains in A. fib 100s However as patient has had soft blood pressures agree with decreasing to metoprolol 25 mg p.o. twice daily Continue lisinopril 2.5 mg p.o. daily No statin or amiodarone due to elevated LFTs Per documentation GI asked cleared patient for anticoagulation. Patient to be anticoagulated on warfarin Cardiac status otherwise stable Patient may follow-up with our group, [facility] events specialist, 1 to 2 weeks after discharge. Phone #[phone] Patient in conjunction with Dr. Fields who agrees with plan of care - Patient Problems (1) Atrial fibrillation with RVR Current Visit: Yes Status: Acute (2) Hematemesis of unknown etiology Current Visit: Yes Status: Acute (3) Cardiomyopathy Current Visit: No Status: Acute (4) Nicotine dependence Current Visit: No Status: Acute Qualifiers: Subjective Date of service: 03/14/22 Principal diagnosis: afib w/ rvr, GI bleed Interval history: Patient transferred to telemetry. A. fib 100s Objective Vital Signs Temp Pulse Pulse Resp BP Pulse Ox 03/14/22 08:32 97.3 F L 107 H 18 116/82 96 03/14/22 03:17 97.8 F 82 18 91/56 96 03/13/22 23:08 97.7 F 83 18 97/54 95 03/13/22 21:55 97 03/13/22 19:11 97.7 F 94 H 18 100/68 94 03/13/22 19:00 97 03/13/22 17:00 105 H 20 102/72 95 03/13/22 16:51 89 20 102/60 98 03/13/22 16:41 94 H 19 102/60 98 03/13/22 16:00 98.3 F 83 83 14 102/65 97 03/13/22 15:01 84 19 103/66 97 03/13/22 14:00 89 17 106/68 94 03/13/22 13:00 86 18 106/61 94 - Physical Examination General: No Apparent Distress HEENT: Positive: PERRL Neck: Positive: trachea midline Cardiac: Positive: irregularly irregular Lungs: Positive: Normal Breath Sounds Neuro: Positive: Grossly Intact Abdomen: Positive: Soft, Other (Hernia) Skin: Negative: Rash, Suspicious Lesions, Ulceration Extremities: Present: upper extr. pulses. Absent: edema - Labs and Meds Cardiac Enzymes 03/14/22 Range/Units 04:04 AST 108 H (5-40) units/L Coagulation 03/14/22 Range/Units 04:04 PT 16.5 H (12.2-14.9) Sec. INR 1.16 H (0.87-1.13) CBC 03/14/22 Range/Units 04:04 WBC 7.2 (4.5-11.0) K/mm3 RBC 4.10 (3.65-5.03) M/mm3 Hgb 13.1 (11.8-15.2) gm/dl Hct 38.9 (35.5-45.6) % Plt Count 150 (140-440) K/mm3 Comprehensive Metabolic Panel 03/14/22 Range/Units 04:04 Sodium 136 L (137-145) mmol/L Potassium 3.8 (3.6-5.0) mmol/L Chloride 99.8 (98-107) mmol/L Carbon Dioxide 25 (22-30) mmol/L BUN 16 (9-20) mg/dL Creatinine 0.9 (0.8-1.3) mg/dL Glucose 100 (75-100) mg/dL Calcium 7.9 L (8.4-10.2) mg/dL AST 108 H (5-40) units/L ALT 290 H (7-56) units/L Alkaline Phosphatase 64 (35-129) units/L Total Protein 5.6 L (6.3-8.2) g/dL Albumin 3.3 L (3.9-5) g/dL - Imaging and Cardiology Echo: report reviewed - Telemetry EKG Rhythm: Atrial Fibrillation - EKG Supraventricular dysrhythmia: atrial fibrillation
[2022-03-14 13:02] VITALS: BP 115/78
--- NOTE | 2022-03-14 15:37 | Gastroenterology Progress Note ---
Assessment and Plan # Epigastric pain # Hematemesis - s/p EGD on 03/12/2022 Impressions: 1. Multiple ulcers in the antrum. No active bleeding. 1 ulcer treated with epi and endoclip 2. A small hiatal hernia. 3. Diffuse antral and body gastritis. 4. Normal duodenal exam. - currently without any further bleeding. - h/h stable. rec: - cont with PPI PO bid for 8 weeks. - recommend repeat EGD in 4-6 weeks. - test for H pylori and treat if positive - recommend work up for hypodense lesions of liver seen on US with MRI liver protocol once more stable. - AFP pending. - discussed with patient need for outpatient follow up for stomach ulcer and libia er disease. - will sign off. Subjective Date of service: 03/14/22 Principal diagnosis: afib w/ rvr, GI bleed Interval history: No melena, no abdominal pain, no nausea vomiting. Objective - Constitutional Vitals: Temp Pulse Resp BP Pulse Ox 97.8 F 109 H 49 H 115/78 94 03/14/22 12:05 03/14/22 12:05 03/14/22 12:05 03/14/22 12:05 03/14/22 12:05 General appearance: no acute distress - EENT Eyes: EOM intact ENT: hearing intact - Neck Neck: supple - Respiratory Respiratory effort: normal - Cardiovascular Rhythm: regular Heart Sounds: Present: S1 & S2 - Gastrointestinal General gastrointestinal: Present: soft, non-tender, non-distended - Integumentary Integumentary: Present: clear, warm - Labs CBC & Chem 7: 03/14/22 04:04 03/14/22 04:04 Labs: Laboratory Results - last 24 hr 03/14/22 03/14/22 03/14/22 04:04 04:04 04:04 WBC 7.2 RBC 4.10 Hgb 13.1 Hct 38.9 MCV 95 H MCH 32 MCHC 34 RDW 14.7 Plt Count 150 PT 16.5 H INR 1.16 H Sodium 136 L Potassium 3.8 Chloride 99.8 Carbon Dioxide 25 Anion Gap 15 BUN 16 Creatinine 0.9 Estimated GFR > 60 BUN/Creatinine Ratio 18 Glucose 100 Calcium 7.9 L Phosphorus 2.10 L Magnesium 2.30 Total Bilirubin 2.30 H AST 108 H ALT 290 H Alkaline Phosphatase 64 Total Protein 5.6 L Albumin 3.3 L Albumin/Globulin Ratio 1.4
[2022-03-14] MEDS ORDERED: WARFARIN 2.5 MG TAB PO SCH (17:00)
--- NOTE | 2022-03-15 12:28 | Electrocardiograph Report ---
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
== END 2022-03-14 17:14 | disposition home or self-care (01) | DRG 308 ==
LOC: ED 22:22 → CC1 03-11 04:20 → 4A 03-13 17:16
PROVIDERS: ADMIT Hospitalist; ATTEND Internal Medicine
PROC: 0DJ08ZZ Inspection of Upper Intestinal Tract, Via Natural or Artificial Opening Endoscopic (ICD-10-PCS; principal; 2022-03-12)
DX: I48.91 Unspecified atrial fibrillation (principal); J96.01 Acute respiratory failure with hypoxia; K29.01 Acute gastritis with bleeding; K29.71 Gastritis, unspecified, with bleeding; I50.22 Chronic systolic (congestive) heart failure; I42.8 Other cardiomyopathies; K44.9 Diaphragmatic hernia without obstruction or gangrene; I11.0 Hypertensive heart disease with heart failure; Z82.49 Family history of ischemic heart disease and other diseases of the circulatory system; Z91.14 Patient's other noncompliance with medication regimen
CPT/HCPCS: 36415; 71045; 74018; 74174; 74181; 76700; 80048; 80053; 80076; 82106; 82150; 82550; 82553; 82962; 83690; 83735; 83880; 84100; 84484; 85014; 85018; 85025; 85027; 85049; 85520; 85610; 85730; 86850; 86900; 86901; 93005; 93306; 94760; 96374; 96375; 99291; G0378; J3490; C8929; C9113; J0171; J0282; J1644; J1940; J2270; J2405; J2704; J3010; J3475; J7030; Q9967